=== PATIENT | female | born 1955 ===

== ENCOUNTER 2025-03-14 08:39 | Emergency (ER) | payer SELFPAY ==
[2025-03-14] VITALS (16 sets, daily range): BP systolic 101–138; BP diastolic 53–70; PULSE 35–55; RESP 18–23; TEMP 36.8; O2SAT 92–98
--- NOTE | 2025-03-14 08:41 | XR_ITS ---
WS: [id number] Exam: XR chest 1V portable [id number] Date/Time of Exam: 03/14/2025 9:12 AM Reason For Exam: Weakness No previous exam. Lungs are fully expanded and clear. Normal cardiomediastinal silhouette. Regional bony elements are intact. No pleural effusions. Numerous monitoring leads superimpose the chest. XR/XR chest 1V portable [id number] IMPRESSION: 1. No acute cardiopulmonary finding.
--- NOTE | 2025-03-14 08:41 | ECG_ITS ---
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
[2025-03-14] MEDS: atropine 0.1 mg/mL Syr 10 mL 1 MG IVP (08:49)
--- NOTE | 2025-03-14 09:00 | ED_ITS ---
HPI - Weakness 2 General: Chief complaint: Weakness Stated complaint: rapid response Time Seen by Provider: 03/14/25 08:40 History of Present Illness: 69-year-old female with a histo ry of kidney transplant on immunosuppressive therapy, hypertension and diabetes who presents to the emergency room with weakness and multiple syncopal episodes. She got into the wrong entrance trying to get to the emergency room and had passed out and a rapid response was called and she was brought to the emergency room. On presentation her heart rate is in the 20s. Appears to be a complete heart block. I immediately consulted cardiology who came to see the patient and rapidly took her to the [facility] for a temporary pacemaker placement. She just moved here or is visiting family and is only been here for a few days. She has been taking her medications. She has had malaise, weakness in the syncopal episodes with dizziness. No other acute complaints. Review of Systems 2 General: Reports: 10 or more systems reviewed and unremarkable except in HPI and below Physical Exam 2 Narrative: EXAM NARRATIVE: General: Alert, no acute distress. Skin: Warm, dry. Head: Normocephalic, atraumatic. Neck: Supple, trachea midline. Eye: Extraocular movements are intact. Ears, nose, mouth and throat: mucosa moist. Cardiovascular: Profoundly bradycardic, normal peripheral perfusion. Respiratory: Lungs are clear to auscultation, respirations are non-labored, breath sounds are equal, Symmetrical chest wall expansion. Gastrointestinal: Soft, Nontender, Non distended Musculoskeletal: Normal ROM, no deformity. Neurological: Alert and oriented, No focal neurological deficit observed. Psychiatric: Cooperative, appropriate mood & affect. Course 2 Vital Signs: Vital signs: Vital Signs Temperature 98.2 F 03/14/25 08:54 Pulse Rate 55 L 03/14/25 11:15 Respiratory Rate 19 H 03/14/25 11:15 Blood Pressure 101/54 03/14/25 11:15 Pulse Oximetry 94 03/14/25 11:15 Oxygen Delivery Me thod Room Air 03/14/25 08:54 MDM - Weakness Medical Decision Making Medical decision making: Differential diagnosis including but not limited to and based on the above HPI, review of systems and physical exam in this patient with syncope: Bradycardia. Vasovagal, orthostatics hypotension, cardiac dysrhythmia, myocardial infarction, infection and hypotension, Orders placed to evaluate differential diagnosis based on the above differential, HPI and physical exam EKG: Time 8:46 AM. Rate 26. Profound bradycardia. Junctional, This was reviewed and interpreted by myself the ER physician at 8:48 AM. This was sent to and reviewed by Dr. Shah with cardiology Consultation: I spoken with and Dr. Shah is also seen the patient and is taking her to the [facility] for temporary pacemaker placement and then plan for transfer ER to ER for permanent pacemaker placement. Chest x-ray: No acute process. No infiltrate. No pneumothorax. This was reviewed and interpreted by myself the emergency room physician. I also reviewed the radiology report. Lab Review: Laboratory results were reviewed and interpreted by myself the emergency room physician. Mild leukocytosis with a white count of 14,000. No anemia. BUN and creatinine are mildly elevated at 27 and 1.1. Glucose is elevated at 300. Initial troponin is normal at 12. Liver enzymes are normal. I reviewed the patient's medical record. Reexamination: Patient returns from [facility]. She is stable. Resting. Heart rate now in the 50s. Demand pacemaker. She is almost completely paced. No increased work of breathing. No altered mental status. No focal motor deficits. Consultation: I spoke with Dr. Laird in the ER at [facility] in [place] who accepts the patient ER to ER. Assessment and plan: Bradycardia ?Temporary pacemaker was placed. Patient stable. Being transferred for permanent pacemaker placement -I discussed the patient with the accepting physician on-call. - Discussed findings and plan with patient. Answered any questions. - All laboratory values were reviewed and interpreted personally by myself, the ER physician - All imaging was reviewed and interpreted personally by myself, the ER physician. - Evaluation and treatment of this problem were appropriate in the emergency setting Critical care -I spent a total of >35 minutes of critical care time managing the patient, independent of any other practitioner. -The time involved in the performance of separately reportable procedures was not counted towards critical care time. Lab Data 03/14/25 08:58 03/14/25 08:58 Radiology Impressions Chest X-Ray 03/14/25 08:41 IMPRESSION: 1. No acute cardiopulmonary finding. Laboratory Results WBC 14.74 10^3/uL (3.29-11.43) H 03/14/25 08:58 RBC 5.48 10^6/uL (3.85-5.65) 03/14/25 08:58 Hgb 14.20 g/dL (11.27-16.99) 03/14/25 08:58 Hct 46.6 % (36-47) 03/14/25 08:58 MCV 85.0 fl (85-98) 03/14/25 08:58 MCH 25.9 pg (27-33) L 03/14/25 08:58 MCHC 30.5 g/dL (30-55) 03/14/25 08:58 RDW 15.9 % (12.1-15.1) H 03/14/25 08:58 Plt Count 214 10^3/cmm (157-399) 03/14/25 08:58 MPV 10.4 fL (7.4-10.4) 03/14/25 08:58 Neut % (Auto) 42.9 % 03/14/25 08:58 Lymph % (Auto) 48.9 % 03/14/25 08:58 [place] % (Auto) 6.6 % 03/14/25 08:58 Eos % (Auto) 0.8 % 03/14/25 08:58 Baso % (Auto) 0.3 % 03/14/25 08:58 Neut # (Auto) 6.32 10^3/uL (1.8-7.7) 03/14/25 08:58 Lymph # (Auto) 7.2 10^3/uL (0.8-4.8) H 03/14/25 08:58 [place] # (Auto) 1.0 10^3/uL (0.2-0.9) H 03/14/25 08:58 Eos # (Auto) 0.1 10^3/uL (0.0-0.8) 03/14/25 08:58 Baso # (Auto) 0.0 10^3/uL (0.0-0.1) 03/14/25 08:58 Nucleated RBC % (auto) 0 % 03/14/25 08:58 Nucleated RBCs # 0.0 /100WBC 03/14/25 08:58 PT 13.40 SECONDS (12.1-14.9) 03/14/25 08:58 INR 0.96 (0.8-1.2) 03/14/25 08:58 APTT 23.7 SECONDS (23.9-36.7) L 03/14/25 08:58 Sodium 139 mmol/L (136-145) 03/14/25 08:58 Potassium 3.8 mmol/L (3.5-5.1) 03/14/25 08:58 Chloride 100 mmol/L (98-107) 03/14/25 08:58 Carbon Dioxide 24 mmol/L (22-29) 03/14/25 08:58 Anion Gap 18.8 (5-19) 03/14/25 08:58 BUN 27 mg/dL (8-23) H 03/14/25 08:58 Creatinine 1.1 mg/dL (0.5-0.9) H 03/14/25 08:58 GFR Calculation 49.2 mL/min (90-130) L 03/14/25 08:58 Glucose 301 mg/dL (65-115) H 03/14/25 08:58 Calculated Osmolality 304 mOsm/kg (285-295) H 03/14/25 08:58 Lactic Acid 4.2 mmol/L (0.5-2.2) H* 03/14/25 08:58 Calcium 9.8 mg/dL (8.5-10.5) 03/14/25 08:58 Total Bilirubin 0.5 mg/dL (0.15-1.2) 03/14/25 08:58 AST 49 U/L (0-32) H 03/14/25 08:58 ALT 56 U/L (0-33) H 03/14/25 08:58 Alkaline Phosphatase 83 U/L (35-105) 03/14/25 08:58 Troponin T Baseline 12 ng/L (0-10) H 03/14/25 08:58 C-Reactive Protein 3.0 mg/L (0.0-4.9) 03/14/25 08:58 NT-Pro-B Natriuret Pep 1992 pg/mL (0-125) H 03/14/25 08:58 Total Protein 7.0 g/dL (6.6-8.7) 03/14/25 08:58 Albumin 3.8 g/dL (3.5-5.2) 03/14/25 08:58 Globulin 3.2 g/dL (1.3-4.6) 03/14/25 08:58 Urine Color Dark yellow (Yellow) A 03/14/25 09:00 Urine Appearance Cloudy (CLEAR) A 03/14/25 09:00 Urine pH 5.5 (5-7) 03/14/25 09:00 Ur Specific [place] 1.031 (1.005-1.030) H 03/14/25 09:00 Urine Protein 4+ (Negative) A 03/14/25 09:00 Urine Glucose (UA) 1+ (Normal) H 03/14/25 09:00 Urine Ketones Trace (Negative) 03/14/25 09:00 Urine Blood 1+ (Negative) A 03/14/25 09:00 Urine Nitrate Negative (Negative) 03/14/25 09:00 Urine Bilirubin Negative (Negative) 03/14/25 09:00 Urine Urobilinogen 1.0 mg/dL (Negative) 03/14/25 09:00 Ur Leukocyte Esterase Negative (Negative) 03/14/25 09:00 Urine RBC 21-50 /hpf (0-2) H 03/14/25 09:00 Urine WBC 6-10 /hpf (0-5) 03/14/25 09:00 Ur Squamous Epith Cells 0-5 /hpf (0-5) 03/14/25 09:00 Amorphous Sediment Not Reportable 03/14/25 09:00 Urine Bacteria None seen /hpf (NONE) 03/14/25 09:00 Hyaline Casts 31.43 /lpf 03/14/25 09:00 Serum Ketones Negative (Negative) 03/14/25 08:58 All radiology interpretation(s) finalized by discharge Discharge Plan Discharge Patient Disposition: Xfer Short-Term Hosp Clinical Impression: Junctional bradycardia, Renal transplant recipient Condition: Stable Print Language: Yi Coding Level of Care Code ED Veterinary Physiologist for Hailee Marinelli
[2025-03-14 09:09] LABS: Basophils % 0.3 %; Eosinophils # 0.1 10^3/uL (0.0-0.8); Eosinophils % 0.8 %; Hematocrit 46.6 % (36-47); Lymphocytes # 7.2 10^3/uL (0.8-4.8); Lymphocytes % 48.9 %; Mean Corpuscular HGB Conc 30.5 g/dL (30-55); Mean Corpuscular Hemoglobin 25.9 pg (27-33); Mean Platelet Volume 10.4 fL (7.4-10.4); Monocytes % 6.6 %; Neutrophils # 6.32 10^3/uL (1.8-7.7); Neutrophils % 42.9 %; Nucleated Red Blood Cells % 0 %; Platelet Count 214 10^3/cmm (157-399); Red Blood Count 5.48 10^6/uL (3.85-5.65); Red Cell Distribution Width 15.9 % (12.1-15.1); White Blood Count 14.74 10^3/uL (3.29-11.43)
[2025-03-14 09:19] LABS: Bilirubin Urine Negative (Negative); Blood Urine 1+ (Negative); Glucose Urine UA 1+ (Normal); Ketones Urine Trace (Negative); Leukocyte Esterase Urine Negative (Negative); Nitrate Urine Negative (Negative); Protein Urine 4+ (Negative); Urine Appearance Cloudy (CLEAR); Urine Color Dark Yellow (Yellow); pH Urine 5.5 (5-7)
[2025-03-14] MEDS: DOPamine drip 400 MG/250 ML PREMIX 11.4 MG IV (09:23)
[2025-03-14 09:24] LABS: Bacteria Urine None Seen /hpf; Hyaline Casts Urine 31.43 /lpf; RBC Urine 21-50 /hpf (0-2); Squamous Epithelial Cell Urine 0-5 /hpf (0-5)
--- NOTE | 2025-03-14 09:24 | PM.CONSULT ---
Providers/Reason For Consult Consulting Physician/Specialty*: Jose Alfredo Shah Reason for Consult*: Bradycardia Requesting Physician: Dr Garza History of Present Illness History of Present Illness Sarah Sandy is a 69 year old female who only speaks Citizen Of [place] and was visiting family from [place] came with feeling very weak this morning. Had 1 episode of syncope on the way to the hospital and another 1 in the waiting area. EKG showed severe junctional bradycardia with a heart rate of [address]-T wave changes. She is still feeling very weak. Blood pressure is stable. She has a medication list from [facility] and it does not appear that she is on any rate limiting medications. Denies any prior cardiac history. Says that had workup in [place] about 6 months ago and did not show any problems. Denies chest pain at this time. He has some nausea. Her brother is with her and history obtained from him and we also had a sap security architect helping with obtaining history and consent from her. Review of Systems General: Reports: 10 or more systems reviewed and unremarkable except in HPI and below Vitals/I&O/Wt Last Vital Signs Temp 98.2 F 03/14/25 08:54 Pulse 35 L 03/14/25 09:08 Resp 21 H 03/14/25 09:08 BP 128/53 03/14/25 09:08 Pulse Ox 95 03/14/25 09:08 O2 Del Method Room Air 03/14/25 08:54 Weight last 48 hrs Weight 134 lb Physical Exam Narrative: GENERAL: Patient is alert, awake and oriented x3. [] NECK: No jugular vein distension. [] HEENT: No cyanosis. No icterus. No pallor. [] HEART: Bradycardia LUNGS: Clear to auscultate bilaterally. CENTRAL NERVOUS SYSTEM: Grossly nonfocal. [] EXTREMITIES: Lower extremities with no edema bilaterally. Data 03/14/25 08:58 03/14/25 08:58 Micro: Microbiology 03/14/25 08:58 Blood Culture - Preliminary Blood SPECIMEN COLLECTED A&P Assessment and plan (1) Junctional bradycardia: Plan Patient has severe symptomatic junctional bradycardia. Passed out twice. Does not appear to be on any rate controlling medications. We will proceed with temporary pacemaker placement. Will then transfer patient from the ER to a facility where permanent pacemaker can be placed as we do not have ability to place PPM here. Risks and benefits of procedure were discussed. Dopamine gtt started Thank you for involving us with care of this patient. Please call with questions. PDMP PDMP Reviewed: Not Reviewed Consult Attestations Medical Necessity Statement: Care expected to cross 2 midnights. Coding Level of Care Code Acute Code for Chg Fwd Diagnoses Junctional bradycardia R00.1
[2025-03-14 09:25] LABS: INR 0.96 (0.8-1.2)
[2025-03-14 09:26] LABS: Ketone (Acetest) Serum Negative (Negative); Partial Thromboplastin Time 23.7 SECONDS (23.9-36.7)
--- NOTE | 2025-03-14 09:29 | PC.NURSE ---
report given to [employer] team, Yoel. pt taken to [facility] @0936 with zoll monitor. pt family phone number . pt belongings in room 10 until pt arrives back to unit.
[2025-03-14 09:31] LABS: Troponin(5th) Baseline 12 ng/L (0-10)
[2025-03-14 09:47] LABS: Alanine Aminotransferase 56 U/L (0-33); Albumin Level 3.8 g/dL (3.5-5.2); Alkaline Phosphatase 83 U/L (35-105); Anion Gap 18.8 (5-19); Aspartate Amino Transferase 49 U/L (0-32); Blood Urea Nitrogen 27 mg/dL (8-23); Calcium 9.8 mg/dL (8.5-10.5); Carbon Dioxide 24 mmol/L (22-29); Chloride 100 mmol/L (98-107); Globulin 3.2 g/dL (1.3-4.6); Glomerular Filtration Rate 49.2 mL/min (90-130); Glucose 301 mg/dL (65-115); NT Pro B Type Natriuretic Pept 1992 pg/mL (0-125); Osmolality Calculated 304 mOsm/kg (285-295); Potassium 3.8 mmol/L (3.5-5.1); Sodium 139 mmol/L (136-145); Total Bilirubin 0.5 mg/dL (0.15-1.2)
[2025-03-14 09:47] LABS: Specific Gravity, Urine 1.031 (1.005-1.030)
[2025-03-14 09:48] LABS: Add Urine Culture? No; UA Slide Review UA Slide Review Perf
--- NOTE | 2025-03-14 09:48 | W.PM.OPSUD ---
Surgery/Procedure H&P Update DATE OF PROCEDURE: March 14, 2025 DATE H&P PERFORMED: 03/14/25 H&P UPDATE INFORMATION: I have reviewed H&P completed within last 30 days, I have examined patient prior to procedure and Changes to prior documentation as noted here CHANGES TO PREVIOUS DOCUMENTATION: On dopamine, patient's heart rate has increased into 40s and has 2:1 AV block now ( initial EKG showed junctional bradycardia) PREOP DIAGNOSIS: Severe junctional bradycardia/now high degree AV block PRIMARY INDICATION FOR PROCEDURE: Severe junctional bradycardia/now high degree AV block PLANNED PROCEDURE: Temporary transvenous pacemaker placement PATIENT REASSESSED PRIOR TO SEDATION, WITH NO CHANGE NOTED: Yes PHYSICAL EXAM: alert, oriented x 3, clear to auscultation bilaterally and regular rate & rhythm AIRWAY EVAL/ANESTHESIA PLAN: normal airway, ASA III, Local Anesthesia, Risks, benefits & alternatives of sedation and/or procedure discussed and Patient agrees to continue as planned ADDITIONAL INFORMATION: Moderate sedation
[2025-03-14 09:50] LABS: Lactic Sepsis W/Reflex 4.2 mmol/L (0.5-2.2)
[2025-03-14] MEDS: sodium chloride 0.9% 1,000 ML 75 ML IV (10:12)
--- NOTE | 2025-03-14 10:30 | P.PCN_ITS ---
Procedure Note: Date of procedure: 03/14/25 Pre-procedure diagnosis: Severe junctional bradycardia/ Intermittent high degree AV block Post-procedure diagnosis: other (S/p temporary transvenous pacemaker) Procedure: Access was obtained on right common femoral vein. Under fluoroscopic guidance, a temporary transvenous pacemaker was placed in position. Demand pacing at 50 bpm with mA of 2 and a sensitivity of 3 mV. Transfer patient to facility where can have permanent pacemaker placement Performing Provider: Jose Alfredo Shah Complications: None Condition: stable Disposition: other (Will need transfer to another facility for permanent pacemaker placement) Coding Level of Care Code Acute Code for [facility] Fwd
--- NOTE | 2025-03-14 10:50 | PC.NURSE ---
Addendum entered by Evelyn Tapia RN 03/14/25 11:18: 1.5mL of air instilled in syringe on arrival Original Note: pt arrived to ED @1030, fluids infusing, reyez catheter placed; pacemaker settings as followed: Ventricular Paced- (R Groin sheath; sutured) Rate: 50 BPM V Output: MA 2.0 V Sensitivity: 3.0 mV
[2025-03-14 10:52] LABS: Reflex Lactate Order REFLEX LACTIC ORDERD
--- NOTE | 2025-03-14 10:54 | PC.NURSE ---
ZOLL monitor has not been below 50 BPM, cardiac mon has false pulse reading charted in 40s.
--- NOTE | 2025-03-14 10:55 | PC.NURSE ---
no bleeding noted around R venous groin access; soft upon palpation, dressing clean and dry at this time.
--- NOTE | 2025-03-14 11:18 | PC.NURSE ---
report called to Octavio Briggs RN at [facility]. report number: . no further questions at end of report.
--- NOTE | 2025-03-14 11:45 | ECG_ITS ---
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
--- NOTE | 2025-03-14 11:47 | PC.NURSE ---
pts femoral access site soft upon palpation, no bleeding noted.
--- NOTE | 2025-03-14 12:09 | DCPLANNER ---
called @1124. was on seen, said they will call back in 30 minutes.
--- NOTE | 2025-03-14 12:31 | PC.NURSE ---
palpated R groin, soft to touch around sheath site
--- NOTE | 2025-03-14 12:55 | PC.PHAR ---
Pts' family member states pt takes alot of medications but she brought them with her from [place], where she lives. Pt is just visiting and does not carry a list. Family states medication bottles were not brought in with her.
--- NOTE | 2025-03-14 13:03 | PC.NURSE ---
report given to [facility], EMS states does not have capability to temporarily pace with their equipment--this nurse educated to bring back the temporary pacemaker. pt R groin soft upon palpation prior to departure, no bleeding noted. EMS crew aware of pacemaker settings.
== END 2025-03-14 13:15 | disposition short-term general hospital (02) ==
PROVIDERS: Internal Medicine; Emergency Provider Emergency Medicine
DX: R00.1 Bradycardia, unspecified (principal); Z94.0 Kidney transplant status
CPT/HCPCS: 33210; 51702; 71045; 80053; 81001; 82009; 83605; 83880; 84484; 85025; 85610; 85730; 86140; 87040; 93005; 96365; 96374; 96375; 99152; 99153; 99291; 99292; C1769; C1779; C1894; J0461; J1265; J1644; J2250; J2405; J3010; J7030; J9999

== ENCOUNTER 2025-03-17 17:52 | Inpatient (IN) | payer SELFPAY ==
--- OUTSIDE RECORDS SUMMARY | 2025-03-14 15:15 | XMS_ITS | Encounter Summary ---
Author Organization [facility] Address [address] [place] [address] Care Team Providers Care Family Life Educator Name Role Phone Unavailable Primary Care Provider Unavailabl e Reason for Visit * Reason Comments general weakness Patient arrives via EMS as transfer from [facility]. Patient was found to be in Junctional rhythm, then progressed to 3rd Degree Block and put on transvenous pacing. * Auth/Cert (Routine) Specialty Diagnoses / Procedures Referred By Franny ray Referred To Contact Emergency Medicine Diagnoses Bradycardia, temporary pacer placed [facility] Emergency Department [address] [place] [address] Phone: tel: fax: Referral ID Status Reason Start Date Expiration Date Visits Re quested Visits Authorized [id number] 1 1 Encounter Details Date Type Department Care Team (Latest Contact Info) Description 03/14/2025 3:15 PM CDT - 03/16/2025 2:15 PM CDT Hospital Encounter [facility] 3E Surgical Intensive Care [address] [place] [address] Janeth Moore DO [address] [place] [address] Lesly De La Rosa MD [address] [place] [address] Justyna Burnette MD [address] [place] [address] Heart block AV complete (CMS/HCC) Discharge Disposition: Home or Self Care Social History Tobacco Use Types Packs/Day Years Used Date Smoking Tobacco: Never Tobacco Cessation:Counseling Given: Not Answered Feeling Safe Answer Date Recorded Are you in a relationship wi th someone who hurts you emotionally and/or physically? No 03/14/2025 Food Insecurity Answer Date Recorded Patient needs follow up regardin 03/15/2025 Transportation Needs Answer Date Record ed Patient needs follow up regardin 03/15/2025 Utility Needs Answer Date Recorded Patient needs follow up regardin 03/15/2025 Comments Unknown Sex and Gender Information Value Date Recorded Sex Assigned at Not on file Legal Sex Female 10:49 AM CDT Gender Identity Not on file Sexual Orientation Not on file Travel History Travel Start Travel End [place] 02/11/2025 03/14/2025 documented as of this encounter Last Filed Vital Signs Vital Sign Reading Time Taken Comments Blood Pressure 134/72 03/16/2025 1:00 PM CDT Pulse 66 03/16/2025 1:45 PM CDT Temperature 36.7 C (98.1 F) 03/16/2025 11:00 AM CDT Respiratory Rate 18 03/16/2025 1:45 PM CDT Oxygen Saturation 93% 03/16/2025 1:45 PM CDT Inhaled Oxygen Concentration - - Weight 55.1 kg (121 lb 7.6 oz) 03/16/2025 3:00 A M CDT Height 149.9 cm (4' 11 ) 03/15/2025 10:05 AM CDT Body Mass Index 24.53 03/15/2025 10:05 AM CDT documented in this encounter Discharge Summaries * Justyna Burnette MD - 03/16/2025 1:08 PM CDT Patient: Iris Sandy / 69 y.o. / female : 1955 CSN: [id number] Admission date: 03/14/2025 Discharge date: 03/16/2025 Admitting Diagnoses: complete heart block Discharge Diagnoses: Principal Problem: Heart block AV complete (CMS/HCC) Active Problems: Junctional escape rhythm (CMS/HCC) Complete heart block (CMS/HCC) Syncope and collapse Type 2 diabetes mellitus with hyperglycemia Renal transplant recipient Temporary transvenous cardiac pacemaker present CHB (complete heart block) (CMS/HCC) Primary Discharge Diagnosis: complete heart block Consults: electrophysiology Procedures: temporary transvenous pacemaker placement, Dual chamber pacemaker placement Treatments: see below Significant Diagnostic Studies: TTE 03/15/2025 Left ventricle: The cavity size is normal. Wall thickness is normal. Assessment of systolic function was difficult due to image quality. Global systolic function is low normal to mildly reduced. For Epic reporting: the left ventricular ejection fraction is 50% by visual assessment. Images are inadequate for LV wall motion assessment. Interventricular septum shows dyssynergy, consistent with previous thoracotomy, conduction delay or RV pacing. Diastolic function is indeterminate. - Right ventricle: The cavity size is normal. Systolic function is normal. - Aortic valve: The valve is probably trileaflet. The leaflets are thickened. - Inferior vena cava: Pacer wire or catheter noted in IVCD. Hospital Course: #Complete heart block requiring emergent temporary transvenous pacemaker. It appears she may have been experiencing symptoms of heart block for the last few weeks, including dizziness and near syncopal episodes. Does not appear to have decompensated heart failure on exam TTE: demonstrating LVEF 50%, preserved Rv function Patient is s/p dual chamber pacemaker 03/15/2025 Post op chest xray reviewed, no pneumothorax appreciated Complete device interrogation performed- device is functioning well Patient is visiting from [place]- family expressed that she will stay in town so that she can followup with pacer clinic in [address] Mann, Electrophysiology in 3 months time #History of renal transplant. Long-term care in [facility]. No signs of acute infection at this time. 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 She also does not check her blood sugar levels at home. 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 Patient expressed that she will follow-up with her PCP in [place] and decide whether or not she wants to start insulin or additional hypoglycemic agents Electrophysiology has signed off. Follow up instructions as per Electrophysiology Patient is clinically and hemodynamically stable on my assessment. Ambulating in the intensive care unit without difficulty Will discharge home Disposition: home. MEDICATIONS Prior to admission: Medications Prior to Admission Medication Sig Dispense Refill Last Dose/Taking linaGLIPtin (TRADJENTA) 5 mg Tablet Take 5 mg by mouth daily. Taking enalapril (VASOTEC) 5 mg tablet Take 5 mg by mouth daily. Taking predniSONE (DELTASONE) 5 mg tablet Take 5 mg by mouth daily with breakfast. Taking mycophenolate mofetil (CELLCEPT) 500 mg tablet Take 500 mg by mouth 2 times daily. Taking sirolimus (RAPAMUNE) 1 mg tablet Take 1 mg by mouth daily. Taking calcitRIOL (ROCALTROL) 0.25 mcg capsule Take 0.25 mcg by mouth daily. Taking Discharge medications and new prescriptions: Medication List CONTINUE taking these medications calcitRIOL 0.25 mcg capsule Commonly known as: ROCALTROL Take 0.25 mcg by mouth daily. Refills: 0 enalapril 5 mg tablet Commonly known as: VASOTEC Take 5 mg by mouth daily. Refills: 0 linaGLIPtin 5 mg Tablet Commonly known as: TRADJENTA Take 5 mg by mouth daily. Refills: 0 mycophenolate mofetil 500 mg tablet Commonly known as: CELLCEPT Take 500 mg by mouth 2 times daily. Refills: 0 predniSONE 5 mg tablet Commonly known as: DELTASONE Take 5 mg by mouth daily with breakfast. Refills: 0 sirolimus 1 mg tablet Commonly known as: RAPAMUNE Take 1 mg by mouth daily. Refills: 0 documented in this encounter Discharge Instructions * Discharge Instructions* Hilario Wong RN - 03/15/2025 10:04 AM CDT DISCHARGE INSTRUCTIONS PACEMAKER DIET: Heart Healthy ACTIVITY: For the next 4 weeks, limit activity of affected arm in the following ways: Date: 04/12/25. Do not reach above your head, do not move the arm on the implant side beyond 90 degrees (at the shoulder level), do not put your arm or hand behind your back or perform jerky, vigorous movements withyour arm. Please use extra caution to avoid falling due to restricted arm mobility. Do not use a lawn and tree service spray supervisor or weed brad until cleared by Device Clinic staff. Contact sport: avoid for 4 weeks. Gradually increase other activity, such as walking as you are able. Do not touch the incision/device site other than gently cleansing. For the next 4 weeks, do not lift, push, or pull anything with the affected limb over 10 pounds. Date: 04/12/25. If you start to lift something and it pulls on the incision area, stop. You may do gentle arm exercises to keep shoulder from getting stiff. Starting with arm/hand in the ???Hi?? position, push hand straight out to the front, bring it back to the ???Hi?? position, and then push out to the side, bring the arm back to the ???Hi?? position. You may do this exercise 4-5times a day with 4-5 repetitions each time. SLING: Wear arm sling for 48 hours: Remove on Date: 03/17/25. Wear the arm sling at bedtime for the first 3 nights. If you are a restless sleeper or sleep with your arms overhead, wear the arm sling at bedtime for 4weeks. INCISION CARE: If you have heavenly, they will be removed at your wound care visit. Keep site clean and dry for 24 hours. Then clean gently in the shower daily using an antibacterial soap such as liquid dial. Do notpick or scratch the site. Gently cleanse the incision and pat dry with a towel. If you have a Aquacel dressing. Leave it on for 7 days. You may shower starting on the first day using regular soap or an antibacterial soap such as Liquid Dial. After 7 days, to remove the dressing,press down on the skin with one hand and carefully pull outward on the edge of the dressing with your other hand to release the adhesive. Repeat this process around the entire edge of the dressing. Do not apply any tape, sticky dressing, or alcohol to the incision site. This could loosen the glue. Allow the glue to fall off on its own. Do NOT use lotions, ointments, creams, powders, alcohol, or peroxide in the incision area. They slow down healing. Do NOT soak the site. Do NOT touch the incision area except for gentle washing. Please remember, keep hands off the incision. Hand Hygiene is the single most effective action you can take to prevent the spread of infectious disease. DRIVING: (if applicable) You may resume driving in 3 weeks or as directed by your physician. Date: 04/05/25 [address] driving, fold a washcloth into fourths and place on top of incision with seat belt on top of the washcloth to decrease irritation and rubbing. RETURNING TO WORK: (if applicable) You usually may return to work following your 2-3-week wound check appointment. If you need a return to work form signed by your physician, deliver the form to [facility], or fax the form to ([phone]), prior to your appointment. Be sure to include information regarding the type of work you do. Your completed form will be given to you at your appointment. GENERAL INFORMATION: Do not use a heating pad over the incision site. Microwave ovens made after 1979 will not harm your device. Do not lean over or touch running car engines. Please refrain from using chainsaws Avoid large generators, magnets, ARC welders. Please inform your dental and health care providers that you have a pacemaker, prior to care Your device is MRI (magnetic resonance imaging) conditional. Please notify your doctor prior to MRIimaging that you have a pacemaker. The MRI department will need to confirm if MRI is allowed, priorto imaging. Your device may set off an airport metal detector. Have your device identification available. If you are prescribed an antibiotic, please take the entire course. HOME MONITOR: If you have a home monitor, between office visits we will check your device every 3 months, frequency can change due to provider discretion. These are billed to insurance, so there may be a co-pay orco-insurance for which you are responsible. Help Line number for your transmitter: [employer]: . CALL CARDIAC DEVICE OFFICE - [phone] - IF: You have any signs of infection: any bleeding or drainage from your incision, redness, streaking, hot to touch, new or increased swelling, or running a fever above 101. You have a sudden swelling at the device site. You have a temperature above 101 F. If you have any questions regarding your device or restrictions, please call the Cardiac Device Office during clinic hours: Tuesday-Tuesday, 8 am. - 4:15 pm. CALL YOUR PHYSICIAN IF: (at [phone]) If you are having palpitations, dizziness, lightheadedness, or feeling faint, notify your physician. (IF THESE SYMPTOMS ARE SEVERE, CALL [phone]) You have increased or sudden onset of persistent, severe pain. You have persistent, severe shortness of breath or dizziness, increased fatigue, or weakness. You have any swelling in feet and ankles or body etc. You have gained more than 3 pounds in 1 day or 5 pounds in 1 week. (Weigh each morning after urination & before eating. Wear similar clothing). DON'T SMOKE AND AVOID SECOND-HAND SMOKE. If you need help to stop smoking, call the Health Information Team at [phone] or [phone]. Follow-Up: Wound check appointment 3 weeks after device was implanted. At this appointment: Device will be checked by the device coordinator. Incision will be examined to ensure proper healing. Wound care will be reviewed with the patient and family. Information regarding device will be given to the patient and their family and questions will be answered. Follow up will be reviewed - frequency and method. Your will be scheduled for a 3 month follow up appointment with your device doctor or nurse practitioner. DEVICE OFFICE WOUND CHECK APPOINTMENT: 3 weeks. Date: 04/08/25 Time: 2:00 PM. [facility] ([facility]) Device Office, second floor [address] [place] [address] (Detonator Maker Parking Available) PLEASE NOTE: You will not see the doctor this day. documented in this encounter Medications at Time of Discharge linaGLIPtin (TRADJENTA) 5 mg Tablet Take 5 mg by mouth daily. enalapril (VASOTEC) 5 mg tablet Take 5 mg by mouth daily. predniSONE (DELTASONE) 5 mg tablet Take 5 mg by mouth daily with breakfast. mycophenolate mofetil (CELLCEPT) 500 mg tablet Take 500 mg by mouth 2 times daily. sirolimus (RAPAMUNE) 1 mg tablet Take 1 mg by mouth daily. calcitRIOL (ROCALTROL) 0.25 mcg capsule Take 0.25 mcg by mouth daily. documented as of this encounter Progress Notes * Justyna Burnette MD - 03/16/2025 12:00 PM CDT CRITICAL CARE MEDICINE DAILY PROGRESS NOTE PCP: No primary care provider on file. Hx: Iris Sandy is a 69 y.o. female admitted 03/14/2025 with fatigue, dizziness, weakness, and falls.She reports that she began feeling tired, dizzy, and weak yesterday. Today she began following which prompted her to call EMS. Initially EMS noted a junctional rhythm which progressed to third-degreeblock. She became symptomatically bradycardic in the 20s with hypotension and was placed on intravenous pacing and transferred to [facility]. On arrival she was at a set rate of 50 with IV pacer through the right groin. Cardiology was consulted on her arrival and they interrogated noting that there were no P waves, patient in complete heart block. They increased pacing to 70 bpm. Per the patient's son, the patient had a cardiology checkup 6 months ago in [place] at which point they were told everything was okay. Cardiology plans for permanent pacemaker placement tomorrow. They request for stat echo and to keep pacer pads in place. Patient receives all of her medical care in [place]. Patient last took her medications on 03/13 evening. CXR was checked to confirm good pacer lead placement in the ED and it confirmed this. Her INR is WDL and other labs are pending. Past medical history of DMT2, hypertension, renal transplant. Pertinent PMHx: No past medical history on file. Current Care Plan Summary: #Complete heart block requiring emergent temporary transvenous pacemaker. Currently appropriately pacing. It appears she may have been experiencing symptoms of heart block for the last few weeks, including dizziness and near syncopal episodes. Continue pacing. Does not appear to have decompensated heart failure on exam TTE: demonstrating LVEF 50%, preserved Rv function Patient is s/p dual chamber pacemaker 03/15/2025 Post op chest xray reviewed, no pneumothorax appreciated Complete device interrogation performed- device is functioning well Patient is visiting from [place]- family expressed that she will stay in town so that she can followup with pacer clinic in [address] Mann, Electrophysiology in 3 months time #History of renal transplant. Long-term care in [facility]. No signs of acute infection at this time. 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 She also does not check her blood sugar levels at home. I counseled patient on the importance of adequate glycemic control. 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 Patient expressed that she will follow-up with her PCP in [place] and decide whether or not she wants to start insulin. Electrophysiology has signed off. Follow up instructions as per Electrophysiology Patient is clinically and hemodynamically stable on my assessment. Ambulating in the intensive care unit without difficulty Will discharge home ICU timeline: Major active problem list: Principal Problem: Heart block AV complete (CMS/HCC) Active Problems: Junctional escape rhythm (CMS/HCC) Complete heart block (CMS/HCC) Syncope and collapse Type 2 diabetes mellitus with hyperglycemia Renal transplant recipient Temporary transvenous cardiac pacemaker present CHB (complete heart block) (CMS/HCC) Subjective: 24 hour events - as above Objective: Current vital signs Blood pressure 127/63, pulse 71, temperature 97.2 ??F (36.2 ??C), temperature source Axillary, resp. rate 17, height 4' 11 (1.499 m), weight 55.1 kg (121 lb 7.6 oz), SpO2 94%. 24 hour BP and temperature range BP: (85-160)/(40-111) Temp (24hrs), Av.8 ??F (36.6 ??C), Min:97.2 ??F (36.2 ??C), Max:98.5 ??F (36.9 ??C) Input/Output 03/14 1900 - 03/16 0659 In: 1250 [P.O.:1250] Out: 2290 [Urine:2290] PHYSICAL EXAM: Gen:elderly female, no acute distress Neuro: neuro intact Cardiac: paced Pulm: non labored Abdomen: soft, non tender, non distended Skin: dry Extremities: warm Data Review: BMP: Recent Labs 03/14/25 1536 03/15/25 0410 03/16/25 0314 GLUCOSE 246* 176* 125* BUN 22 14 17 CREAT 0.68 0.59 0.66 NA 140 134* 140 K 4.7 3.9 3.8 CL 105 101 106 CO2 23 24 23 ANIONGAP 12 9 11 MG 2.0 -- 1.9 estimated creatinine clearance is 41.3 mL/min (by C-G formula based on SCr of 0.66 mg/dL). LFTs: Recent Labs 03/14/25 1536 03/15/25 0410 03/16/25 0314 ALKPHOS 72 72 73 ALT 49* 39* 29 AST 38* 26 18 BILITOTAL 0.4 0.6 0.5 ALBUMIN 3.4* 3.2* 3.1* CBC: Recent Labs 03/14/25 1711 03/15/25 0410 03/16/25 0314 WBC 8.0 8.2 7.3 HGB 12.9 13.5 13.9 HCT 41.2 41.6 43.8 PLT 168 168 150 MCV 83.2* 82.1* 82.3* Coagulation: Recent Labs 03/14/25 1536 PT 14.2 INR 1.0 ABG: No results found for: SPECIMENSOU , PHBLOODPOC , BOM1QMS , PO2POC , TMI0QRA , C5HVGOBU , GAQ9ZMX , BEPOC , LACTATE , PATIENTTEMP , PHTEMPCORR , KKA4GNXBJZ , HY8HJFIGJL Lactic acid: No results found for: LACTATE Radiology: relevant imaging reviewed Assessment and Plan Neuro/Psych: No acute concerns, she is neurologically intact. Cardiovascular/Fluids: She is hemodynamically stable without vasopressors. Complete heart block: With TVP in place, keep pacer pads on, n.p.o. after midnight for PPM tomorrow. TTE preserved biventricular function TSH Troponin nonelevated Pulmonary: No acute concerns, she is saturating well on room air. GI/NUT: Cardiac diet, SUP, not indicated Renal/LYTES/Acid-Base: S/p renal transplant: Roughly 7 years ago, resume transplant meds Infectious Disease: No concerns for infectious process at this time, monitor without ABX for now. Hem/Onc/Coag: DVTp, SCDs pending PPM placement. Endocrine: DMT2: SSI BG goal less than 180 Musculoskeletal/Skin: Routine skin care per nursing. Family communication: updated patient's son at the bedside Critical care time: N/A Em2 * Frederic Ruff MD - 03/16/2025 7:57 AM CDT Images from the original note were not included. EP/Cardiology Progress Note ASSESSMENT: Principal Problem: Heart block AV complete (CMS/HCC) Active Problems: Syncope and collapse Junctional escape rhythm (CMS/HCC) Complete heart block (CMS/HCC) Type 2 diabetes mellitus with hyperglycemia Renal transplant recipient Temporary transvenous cardiac pacemaker present CHB (complete heart block) (CMS/HCC) PLAN: CHB s/p DC-PPM on 03/15/2025 - device checked by rep today and I personally reviewed it, lead parameters are WNL - device site is as expected, sore and tender but no swelling or bleeding - from EP standpoint, device is WNL, EP team will sign off I have communicated with the primary team for my above recommendations. Frederic Ruff MD, [facility] Clinical Cardiac Electrophysiology [facility] 03/16/2025 BRIEF HISTORY: Iris Sandy is a 69 y.o. female who we are seeing for symptom for junctional rhythm & CHB. Intra-hospital course, she underwent uneventful PPM implant . SUBJECTIVE Patient denies chest pain, palpitations, syncope. Patient denies nausea, vomiting, or weakness of upper or lower extremities. Review of Systems: 10 point review of systems negative except as above. PHYSICAL EXAM: BP (!) 140/80 Pulse 63 Temp 97.2 ??F (36.2 ??C) (Axillary) Resp 19 Ht 4' 11 (1.499 m) Wt55.1 kg (121 lb 7.6 oz) SpO2 93% BMI 24.53 kg/m?? GENERAL: looks stated age SKIN: No rashes or lesions. HEENT: Normal cephalic, atraumatic, anicteric sclera NECK: supple, no JVD, no lymphadenopathy, CHEST: CTA B/L, no wheezing, rales or rhonchi CV: regular rate and regular rhythm, variable S1and S2, 2/6 ejection systolic murmur in the aortic area ABD: soft, nontender, no guarding, no rebound tenderness, EXTREMITIES: no edema NEUROLOGY: Alert and oriented x3, speech clear and fluent, muscle strength 4+ bilaterally LAB: I have reviewed the available labs. Lab Results Component Value Date HGB 13.9 03/16/2025 WBC 7.3 03/16/2025 Lab Results Component Value Date CREAT 0.66 03/16/2025 GFR >60 03/16/2025 K 3.8 03/16/2025 CA 8.6 (L) 03/16/2025 MG 1.9 03/16/2025 Serum creatinine: 0.66 mg/dL 03/16/25313 Estimated creatinine clearance: 41.3 mL/min Lab Results Component Value Date AST 18 03/16/2025 ALT 29 03/16/2025 Coagulation parameters: Lab Results Component Value Date INR 1.0 03/14/2025 PT 14.2 03/14/2025 Cardiac markers: TROPONIN T, BASELINE 5TH GEN Date Value Ref Range Status 03/14/2025 10 <=10 ng/L Final DELTA 6HR TROPONIN T Date Value Ref Range Status 03/14/2025 -2 See Interp. Final TROPONIN T, 6 HR 5TH GEN Date Value Ref Range Status 03/14/2025 8 <11 ng/L Final I reviewed overnight telemonitor & my interpretation is as below: A-paced, V-sensed * Justyna Burnette MD - 03/15/2025 3:30 PM CDT CRITICAL CARE MEDICINE DAILY PROGRESS NOTE PCP: No primary care provider on file. Hx: Iris Sandy is a 69 y.o. female admitted 03/14/2025 with fatigue, dizziness, weakness, and falls.She reports that she began feeling tired, dizzy, and weak yesterday. Today she began following which prompted her to call EMS. Initially EMS noted a junctional rhythm which progressed to third-degreeblock. She became symptomatically bradycardic in the 20s with hypotension and was placed on intravenous pacing and transferred to [facility]. On arrival she was at a set rate of 50 with IV pacer through the right groin. Cardiology was consulted on her arrival and they interrogated noting that there were no P waves, patient in complete heart block. They increased pacing to 70 bpm. Per the patient's son, the patient had a cardiology checkup 6 months ago in [place] at which point they were told everything was okay. Cardiology plans for permanent pacemaker placement tomorrow. They request for stat echo and to keep pacer pads in place. Patient receives all of her medical care in [place]. Patient last took her medications on 03/13 evening. CXR was checked to confirm good pacer lead placement in the ED and it confirmed this. Her INR is WDL and other labs are pending. Past medical history of DMT2, hypertension, renal transplant. Pertinent PMHx: No past medical history on file. Current Care Plan Summary: #Complete heart block requiring emergent temporary transvenous pacemaker. Currently appropriately pacing. It appears she may have been experiencing symptoms of heart block for the last few weeks, including dizziness and near syncopal episodes. Continue pacing. Does not appear to have decompensated heart failure on exam TTE: demonstrating LVEF 50%, preserved Rv function S/p PPM today Post op chest xray, device interrogation pending #History of renal transplant. Long-term care in [facility]. No signs of acute infection at this time. 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 ICU timeline: Major active problem list: Principal Problem: Heart block AV complete (CMS/HCC) Active Problems: Junctional escape rhythm (CMS/HCC) Complete heart block (CMS/HCC) Syncope and collapse Type 2 diabetes mellitus with hyperglycemia Renal transplant recipient Temporary transvenous cardiac pacemaker present CHB (complete heart block) (CMS/HCC) Subjective: 24 hour events - as above Objective: Current vital signs Blood pressure (!) 117/40, pulse 68, temperature 98.4 ??F (36.9 ??C), temperature source Axillary, resp. rate 22, height 4' 11 (1.499 m), weight 56 kg (123 lb 7.3 oz), SpO2 90%. 24 hour BP and temperature range BP: (85-160)/(40-111) Temp (24hrs), Av.9 ??F (36.6 ??C), Min:97.2 ??F (36.2 ??C), Max:98.5 ??F (36.9 ??C) Input/Output 03/14 0700 - 03/15 1859 In: 1150 [P.O.:1150] Out: 2830 [Urine:2830] PHYSICAL EXAM: Gen:elderly female, no acute distress Neuro: neuro intact Cardiac: paced Pulm: non labored Abdomen: soft, non tender, non distended Skin: dry Extremities: warm Data Review: BMP: Recent Labs 03/14/25 1536 03/15/25 0410 GLUCOSE 246* 176* BUN 22 14 CREAT 0.68 0.59 NA 140 134* K 4.7 3.9 CL 105 101 CO2 23 24 ANIONGAP 12 9 MG 2.0 -- estimated creatinine clearance is 41.7 mL/min (by C-G formula based on SCr of 0.59 mg/dL). LFTs: Recent Labs 03/14/25 1536 03/15/25 0410 ALKPHOS 72 72 ALT 49* 39* AST 38* 26 BILITOTAL 0.4 0.6 ALBUMIN 3.4* 3.2* CBC: Recent Labs 03/14/25 1711 03/15/25 0410 WBC 8.0 8.2 HGB 12.9 13.5 HCT 41.2 41.6 PLT 168 168 MCV 83.2* 82.1* Coagulation: Recent Labs 03/14/25 1536 PT 14.2 INR 1.0 ABG: No results found for: SPECIMENSOU , PHBLOODPOC , FJZ5VOZ , PO2POC , CEP3YLJ , E4VJVCMN , TLD8QIK , BEPOC , LACTATE , PATIENTTEMP , PHTEMPCORR , YHB7SVSKTF , [id number] Lactic acid: No results found for: LACTATE Radiology: relevant imaging reviewed Assessment and Plan Neuro/Psych: No acute concerns, she is neurologically intact. Cardiovascular/Fluids: She is hemodynamically stable without vasopressors. Complete heart block: With TVP in place, keep pacer pads on, n.p.o. after midnight for PPM tomorrow. TTE preserved biventricular function TSH Troponin nonelevated Pulmonary: No acute concerns, she is saturating well on room air. GI/NUT: Cardiac diet, SUP, not indicated Renal/LYTES/Acid-Base: S/p renal transplant: Roughly 7 years ago, resume transplant meds Infectious Disease: No concerns for infectious process at this time, monitor without ABX for now. Hem/Onc/Coag: DVTp, SCDs pending PPM placement. Endocrine: DMT2: SSI BG goal less than 180 Musculoskeletal/Skin: Routine skin care per nursing. Family communication: updated patient's son at the bedside Critical care time: N/A Em3 * Vira Mann MD - 03/15/2025 8:39 AM CDT S: Pt has no complain of CP, SOB, Dizziness, No fever or Chill. No significant palpitation. Tolerating medication. Review of System: Consitutional: no fever or chills Neurologic: No significant headache, recent stroke, or seizure. Eyes: No double visual ENT: No earache, nasal bleeding or signigicant sore throat Cardiac: as HPI Pulmonary: no cough off blood, or significant change in sputum production Gastrointestinal: No significant and prolonged diarrhea or constipation Genitourinary: No hematuria, dysuria. Skin: no significant rash Psychiatric: No clear depression Musculoskeletal: no significant change in myalgias or arthralgias O: Blood pressure 128/76, pulse 74, temperature 97.4 ??F (36.3 ??C), temperature source Axillary, resp. rate 24, height 4' 11.84 (1.52 m), weight 56 kg (123 lb 7.3 oz), SpO2 97%. Pt is alert and oriented x 3, no apparent distress, VSS, afibril Heart: RRR, no sig. Murmur Lung: CTA, with minimal crakles ABD: Non-tender, Soft and +BS Leg: Trace edema Lab: Lab Results Component Value Date WBC 8.2 03/15/2025 HGB 13.5 03/15/2025 HCT 41.6 03/15/2025 PLT 168 03/15/2025 MCV 82.1 (L) 03/15/2025 Lab Results Component Value Date NA 134 (L) 03/15/2025 K 3.9 03/15/2025 CL 101 03/15/2025 CO2 24 03/15/2025 CA 8.7 (L) 03/15/2025 BUN 14 03/15/2025 CREAT 0.59 03/15/2025 GLUCOSE 176 (H) 03/15/2025 ANIONGAP 9 03/15/2025 No results found for: CPK , CKMB , TROPONIN , TROPONIINT , TROPINTR Current Facility-Administered Medications Medication Dose Route Frequency Provider Last Rate Last Admin potassium CHLORIDE 20 mEq/100 mL IVPB 20 mEq 20 mEq IV every 2 hours Lesly De La Rosa MD Stopped at 03/15/25 0759 naloxone (NARCAN) 0.4 mg/mL injection 0.1-0.4 mg 0.1-0.4 mg IV see admin instructions Laura Stoner NP replacement reminder - Potassium 1 Each See Admin Instructions see admin instructions Laura Stoner NP replacement reminder-Magnesium 1 Each See Admin Instructions see admin instructions Laura Stoner NP replacement reminder - Phosphorus 1 Each See Admin Instructions see admin instructions Laura Stoner NP replacement reminder-Calcium 1 Each See Admin Instructions see admin instructions Laura Stoner NP insulin lispro (HumaLOG,ADMELOG) injection 0-12 Units 0-12 Units subCUT every 4 hours Laura Stoner NP 4 Units at 03/15/25 0750 predniSONE (DELTASONE) tablet 5 mg 5 mg Oral daily WITH breakfast Laura Stoner NP 5 mg at 03/15/25 0830 mycophenolate mofetil (CELLCEPT) tablet 500 mg 500 mg Oral BID Lesly De La Rosa MD sirolimus (RAPAMUNE) tablet 1 mg 1 mg Oral daily Lesly De La Rosa MD A/P Iris Sandy is a 69 y.o. female equatorial guinean speaking female with a history of renal transplant presents from [facility] with temporary transvenous pacing wires. She presented with a junctional rhythm with a heart rate in the 20s reportedly deteriorating to complete heart block. No P waves are noted during i nterrogation. Good threshold, paced @ 70. She reports 1 week lightheadedness, weakness, now worse. Had heart check up 6 mo ago in [place], everything ok per son. Not on any negative chronotropic agents. Labs from [facility] unremarkable. Severe [place], 20s with one week hx of syncope and weakness. No P wave. Junctional escape 20s as baseline. Temp pacer working. I discussed with her and her brother who speak Tajik fluently this AM about implanting PPM. Risks/benefits/options all discussed in detail all questions answered. Will proc eed. Echo reviewed. LVEF 50% without sig valvular diseases. Lab fine. The procedure described and the risks of complication also discussed with patient in detail. The risks including, but not limited to, infection, bleeding, pneumothorax requiring chest tube, cardiac perforation requiring open heart surgery, stroke, or . Overall, the potential risks clearly out weighted by the potential benefits. Patient understands the risks/benefits and other options clearly. All questions answered. Pacemaker Pre-Procedure Note Patient: Iris Sandy / 69 y.o. / female : 1955 CSN: [id number] Today's date: 03/15/2025 Planned Procedure: PPM Indications: Documented non-reversible symptomatic bradycardia due to third degree atrioventricularblock. Appropriate history and physical on chart? Yes Dated: yes Risks, benefits and options of conscious sedation discussed with patient. Previous anesthesia experiences reviewed. Informed consent obtained? yes Physical exam: Heart: No sig. Change from prior Lungs: no wheezes or rales and clear to auscultation, unlabored breathing. Airway: normal ASA Classification: 1. A normal healthy patient 2. A patient with mild systemic disease 3. A patient with severe systemic disease. Limits activity, but not incapacitating. 4. A patient with incapacitating systemic disease that is a constant threat to life. 5. A moribund patient, not expected to survive 24 hours with or without the procedure. Choose ASA Class: 2 Cleared for sedation: yes NPO status per policy: yes Plan/Recommendation: current treatment plan is effective, no change in therapy Vira Mann MD documented in this encounter H&P Notes * Laura Stoner NP - 03/14/2025 6:45 PM CDT CRITICAL CARE MEDICINE HISTORY & PHYSICAL PCP: No primary care provider on file. Subjective: CC: Fatigue, dizziness, weakness, falls HPI: Iris Sandy is a 69 y.o. female admitted 03/14/2025 with fatigue, dizziness, weakness, and falls. She reports that she began feeling tired, dizzy, and weak yesterday. Today she began followingwhich prompted her to call EMS. Initially EMS noted a junctional rhythm which progressed to third-degree block. She became symptomatically bradycardic in the 20s with hypotension and was placed on intravenous pacing and transferred to [facility]. On arrival she was at a set rate of 50 with IV pacer through the right groin. Cardiology was consulted on her arrival and they interrogated noting that there were no P waves, patient in complete heart block. They increased pacing to 70 bpm. Per the patient's son, the patient had a cardiology checkup 6 months ago in [place] at which point they were told everything was okay. Cardiology plans for permanent pacemaker placement tomorrow. They request for stat echo and to keep pacer pads in place. Patient receives all of her medical care in [place]. Patient last took her medications on 03/13 evening. CXR was checked to confirm good pacer lead placement in the ED and it confirmed this. Her INR is WDL and other labs are pending. Past medical history of DMT2, hypertension, renal transplant. Database: No past medical history on file. No past surgical history on file. Medication List CONTINUE taking these medications calcitRIOL 0.25 mcg capsule Commonly known as: ROCALTROL Take 0.25 mcg by mouth daily. Refills: 0 enalapril 5 mg tablet Commonly known as: VASOTEC Take 5 mg by mouth daily. Refills: 0 linaGLIPtin 5 mg Tablet Commonly known as: TRADJENTA Take 5 mg by mouth daily. Refills: 0 mycophenolate mofetil 500 mg tablet Commonly known as: CELLCEPT Take 500 mg by mouth 2 times daily. Refills: 0 predniSONE 5 mg tablet Commonly known as: DELTASONE Take 5 mg by mouth daily with breakfast. Refills: 0 sirolimus 1 mg tablet Commonly known as: RAPAMUNE Take 1 mg by mouth daily. Refills: 0 Allergies: Not on File Social History Tobacco Use Smoking status: Not on file Smokeless tobacco: Not on file Substance Use Topics Alcohol use: Not on file No family history on file. REVIEW OF SYSTEMS: Review of Systems Constitutional: Negative. HENT: Negative. Eyes: Negative. Respiratory: Negative. Cardiovascular: Negative. Gastrointestinal: Negative. Skin: Negative. Neurological: Positive for dizziness, loss of consciousness and weakness. Endo/Heme/Allergies: Negative. Psychiatric/Behavioral: Negative. Objective: Initial Vitals [03/14/25 1530] BP 116/65 Pulse (!) 58 Resp 22 Temp 98.5 ??F (36.9 ??C) Temp src Oral SpO2 94 % Patient Vitals for the past 8 hrs: BP Temp Temp src Pulse Resp SpO2 Height Weight 03/14/25 1545 120/60 -- -- (!) 59 18 92 % -- -- 03/14/25 1530 116/65 98.5 ??F (36.9 ??C) Oral (!) 58 22 94 % 4' 11.84 (1.52 m) 56 kg (123 lb 7.3 oz) Data Review: BMP:No results for input(s): GLUCOSE , BUN , CREAT , NA , K , CL , CO2 , ANIONGAP , CAIONIZED , MG , PO4 in the last 72 hours. CrCl cannot be calculated (No successful lab value found.). LFTs:No results for input(s): ALKPHOS , ALT , AST , BILITOTAL , ALBUMIN , AMYLASE , LIPASE in the last 72 hours. CBC: No results for input(s): WBC , HGB , HCT , PLT , MCV in the last 72 hours. Coagulation: Recent Labs 03/14/25 1536 PT 14.2 INR 1.0 ABGs:No results found for: SPECIMENSOU , PHBLOODPOC , BYH8IBU , PO2POC , OXY9JYA , M8FICUIH , AMV8GIX , BEPOC , LACTATE , PATIENTTEMP , PHTEMPCORR , VSH9PMTISO , [id number] Radiology: Relevant results and imaging have been reviewed. Assessment and Plan: Neuro/Psych: No acute concerns, she is neurologically intact. Cardiovascular/Fluids: She is hemodynamically stable without vasopressors. Complete heart block: With TVP in place, keep pacer pads on, n.p.o. after midnight for PPM tomorrow. TTE pending TSH Troponin nonelevated Pulmonary: No acute concerns, she is saturating well on room air. GI/NUT: Cardiac diet, n.p.o. after midnight SUP, not indicated Renal/LYTES/Acid-Base: S/p renal transplant: Roughly 7 years ago, resume transplant meds, consult nephrology in AM. Infectious Disease: No concerns for infectious process at this time, monitor without ABX for now. Hem/Onc/Coag: DVTp, SCDs pending PPM placement. Endocrine: DMT2: SSI BG goal less than 180 Musculoskeletal/Skin: Routine skin care per nursing. Additional comments: 69-year-old female admitted on 03/14 from outside facility for complete heart block s/p TVP placed at outside facility, EP consulted, echo pending, plan for PPM tomorrow 03/15, n.p.o. at midnight. Family Communication: Patient and son updated at bedside Cosigned by Lesly De La Rosa MD at 03/14/2025 7:33 PM CDT Associated attestation - Lesly De La Rosa MD - 03/14/2025 7:33 PM CDT I reviewed the medical record including the applicable Critical Care Medicine APC note from today. I independently examined the patient I discussed the history, physical findings, laboratory findings, assessment and plan with the applicable APC on rounds.? I have reviewed the physical exam findings in the applicable resident/Fellow/COMPUTER LAB PARA PROFESSIONAL/PA's note; my notable physical exam findings include: Body mass index is 24.24 kg/m??. Neuro: Alert, following commands, nonfocal CV: Paced rhythm Resp: No distress GI: Soft, nontender, nondistended Ext: No deformity, no edema I have reviewed the assessment and plan in the applicable APC note. Notable amendments to the assessment and plan include: [1] complete heart block requiring emergent temporary transvenous pacemaker. Currently appropriately pacing. It appears she may have been experiencing symptoms of heart block for the last few weeks, including dizziness and near syncopal episodes. Continue pacing. Does not appear to have decompensated heart failure on exam, however will check echo to evaluate further. Electrophysiology has been consulted and are evaluating for permanent pacemaker [2] history of renal transplant. Long-term care in [facility]. No signs of acute infection at this time. 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 ? Family Communication: Updated patient's son at bedside. All questions answered Critical care time of 31 minutes was spent with this patient excluding procedures or teaching. Active problem list: Principal Problem: Heart block AV complete (CMS/HCC) Active Problems: Junctional escape rhythm (CMS/HCC) Complete heart block (CMS/HCC) Syncope and collapse Type 2 diabetes mellitus with hyperglycemia Renal transplant recipient Temporary transvenous cardiac pacemaker present documented in this encounter Procedure Notes * Vira Mann MD - 03/15/2025 12:44 PM CDT Medtronic dual chamber PPM implanted and temp pacer removal done Throughout the procedure, patient's hemodynamics and oxygenation stable. No complication noticed. Minimal bleeding. Final parameters as WN and documented. TBL: 10 mL FINAL PROGRAMMING: MVP 60 to 120 beats per minute. FINAL SUMMARY: Dual chamber permanent pacemaker implantation for SSS. Home tomorrow Likely f/u with her MD in [place] If still in , f/u with pacer clinic in 3 weeks and with me in 3 months. documented in this encounter Consult Notes * Regulo Agarwal RN - 03/15/2025 10:05 AM CDT Chart screened by cardiac rehab per approved protocol for patient scheduled for cardiac device implant today. I have sent a request to the device office for a wound care appointment and downloaded appropriate discharge instructions in patient's chart to be edited post procedure. Please order IP Cardiac Rehab consult as appropriate for post procedure patient education (if one is not already present). * Vira Mann MD - 03/14/2025 4:11 PM CDTAssociated Order(s): IP CONSULT TO ELECTROPHYSIOLOGY CARDIOLOGY CONSULTATION [place], [place] Requesting Physician: Janeth Moore DO Primary Die Cutter: NONE Consulting Die Cutter: Dr. Mann Date of Admission: 03/14/2025 Today's Date: 03/14/2025 Reason for Consultation: complete heart block/ junctional escape HPI Iris Sandy is a 69 y.o. female equatorial guinean speaking female with a history of renal transplant presents from [facility] with temporary transvenous pacing wires. She presented with a junctional rhythm with a heart rate in the 20s reportedly deteriorating to complete heart block. No P waves are noted during i nterrogation. Good threshold, paced @ 70. She reports 1 week lightheadedness, weakness, now worse. Had heart check up 6 mo ago in [place], everything ok per son. Not on any negative chronotropic agents. Labs from [facility] unremarkable. [facility] labs pending. No past medical history on file. No past surgical history on file. (Not in a hospital admission) Not on File No family history on file. Social History Tobacco Use Smoking status: Not on file Smokeless tobacco: Not on file Substance Use Topics Alcohol use: Not on file Review of Systems 14 point ROS negative or not pertinent with the exception of aforementioned in the HPI. Objective: BP 120/60 Pulse (!) 59 Temp 98.5 ??F (36.9 ??C) (Oral) Resp 18 Ht 4' 11.84 (1.52 m) Wt 56 kg (123 lb 7.3 oz) SpO2 92% BMI 24.24 kg/m?? Last documented weight: Weight: 56 kg (123 lb 7.3oz) (03/14/25 1530) General: A/O x 3, well nourished, in no acute distress Head/ Neck: Normocephalic, Neck supple, no JVD, no carotid bruits. Lungs: Respirations even and unlabored. Breath sounds clear to auscultation Heart: Regular rate and rhythm. Normal S1 and S2. Abdomen: soft and nontender, bowel sounds present Extremities: THAKKAR. Pulses palpable. No edema Skin: Warm, dry, intact. No obvious lesions or ecchymosis. Neuro/Musc: Normal muscle strength and tone. No focal deficits. Laboratory: No results found for: NA , K , CL , CO2 , BUN , CREAT , CA @[LASTLIPIDS@ No results found for: WBC , RBC , HGB , HCT , PLT Lab Results Component Value Date PT 14.2 03/14/2025 No results found for: BNP No results found for: TSH , TSHULTRA , THYROIDSTIM No results found for: BASETROP , 2HRTROP , DELTA , 6HRTROP Assessment: Junctional escape with marked bradycardia/ sinus arrest requiring transvenous temporary wires. Planpermanent device implant tomorrow. Get stat echo, labs. Place A/P pads. Keep NPO after MN. Plan: Cardiology note Patient seen and examined today, interviewed, examined at bedside [id number]. I performed the following physical exam. PHYSICAL EXAM: BP (!) 142/70 Pulse 78 Temp 98.5 ??F (36.9 ??C) (Oral) Resp 19 Ht 4' 11.84 (1.52 m) Wt 56 kg (123 lb 7.3 oz) SpO2 98% BMI 24.24 kg/m?? GEN: alert, no acute distress SKIN: Warm and dry HEENT: Conjunctivae clear, oropharynx moist NECK: Supple, jvp normal, no carotid bruits, carotid upstroke brisk CHEST: Clear to ausculation, good breath sounds bilaterally CV: Regular rate and regular rhythm, normal S1 and S2, no murmur, no gallop rub or click ABD: Soft, non tender, normal bs EXT: No cyanosis, edema NEURO: No gross focal or lateralizing deficits LAB: I have reviewed the available labs. Assessment and plan: Asystole, not sure sinus arrest or afib with CHB Likely needing PPM tomorrow. Will like to have echo first to see if needing CRTP. Not sure what kind of atrial rhythm at this time. Temp pacer interrogated by me and stable. documented in this encounter ED Notes * Ryder Reed RN - 03/14/2025 4:22 PM CDT Patient placed on external pads per Die Cutter request. Patient settings adjusted per shaper hand. Pacer now set at 70, and 4 mA. * Ryder Reed RN - 03/14/2025 3:43 PM CDT Patient arrives via EMS as transfer from [facility]. Patient reports yesterday she began feeling tired and dizzy with generalized weakness. Patient states that today she began falling which brought her to seek medical help. Patient was found to be in a Junctional rhythm when she was seen initially, and then progressed to a 3rd Degree block. Patient became bradycardic in the 20s, hypotensive, and symptomatic. Patient was then placed on Intravenous pacing and transferred to this facility. Patient is currently set at a rate of 50, on 2 mA, with a sensitivity of 3. Patient has intravenous pacer inserted through right groin. Vital signs remain stable while pacing, patient is alert and oriented. * Janeth Moore DO - 03/14/2025 3:15 PM CDT HISTORY OF PRESENT ILLNESS This note was prepared by Crystal Kenny acting as a scribe for Janeth Moore DO Pt was evaluated in room H/H at 3:38 PM Pt is a 69 y.o. female who presents to the ED for evaluation of pacemaker placement and weakness. The patient has a temporary transvenous pacemaker in place. The patient now requires a permanent pacemaker and is presenting here for that procedure. The patient is a transfer from [facility] where she was complaining of weakness and lightheadedness. She mistakenly entered through the wrong entrance and passed out in the lobby at [facility] before having a temporary pacemaker placed. PAST MEDICAL HISTORY REVIEWED MEDICAL: Patient has no past medical history on file. SURGICAL: Patient has no past surgical history on file. ALLERGIES Patient has no known allergies. PHYSICAL EXAM INITIAL VS BP: 116/65 (03/14/25 1530), Heart Rate: (!) 52 bpm (03/14/25 1515), Resp: 21 (03/14/25 1515), Pulse: (!) 52 (03/14/25 1515), Temp: 98.5 ??F (36.9 ??C) (03/14/25 1530), Temp src: Oral (03/14/251529),SpO2: 94 % (03/14/25 1515), Height: 4' 11.84 (152 cm) (03/14/251529), Weight: 56 kg (123 lb 7.3 oz) (03/14/251529), BMI (Calculated): 24.24 (03/14/251529) No LMP recorded. Physical Exam Vitals and nursing note reviewed. Constitutional: General: She is not in acute distress. Appearance: She is not toxic-appearing. HENT: Head: Normocephalic and atraumatic. Mouth/Throat: Mouth: Mucous membranes are moist. Eyes: Extraocular Movements: Extraocular movements intact. Pupils: Pupils are equal, round, and reactive to light. Cardiovascular: Rate and Rhythm: Normal rate and regular rhythm. Pulses: Normal pulses. Pulmonary: Effort: Pulmonary effort is normal. No respiratory distress. Abdominal: General: There is no distension. Palpations: Abdomen is soft. Tenderness: There is no abdominal tenderness. Musculoskeletal: General: No swelling or deformity. Cervical back: Normal range of motion and neck supple. Skin: General: Skin is warm and dry. Neurological: General: No focal deficit present. Mental Status: She is alert and oriented to person, place, and time. Psychiatric: Mood and Affect: Mood normal. Behavior: Behavior normal. DIAGNOSTICS LAB: CBC WITH DIFFERENTIAL - Abnormal Result Value WBC 8.0 RBC 4.95 HEMOGLOBIN 12.9 HEMATOCRIT 41.2 MCV 83.2 (*) MCH 26.1 (*) MCHC 31.3 PLATELETS 168 MPV 10.6 RDW 16.0 (*) RDW-STDEV 48.3 NEUTROPHILS 62 LYMPHOCYTES 28 MONOCYTES 9 EOSINOPHILS 0 BASOPHILS 0 IMMATURE GRANULOCYTES 0 NEUTROPHIL ABSOLUTE 5.01 LYMPHOCYTE ABSOLUTE 2.27 MONOCYTE ABSOLUTE 0.70 (*) EOSINOPHIL ABSOLUTE 0.03 BASOPHILS ABSOLUTE 0.01 IMMATURE GRANULOCYTES ABSOLUTE 0.02 SMEAR REVIEWED: NA - Not Applicable COMPREHENSIVE METABOLIC PANEL - Abnormal SODIUM 140 POTASSIUM 4.7 CHLORIDE 105 CO2 23 CALCIUM 9.4 BUN 22 CREATININE 0.68 GLUCOSE 246 (*) TOTAL PROTEIN 6.2 (*) ALBUMIN 3.4 (*) BILIRUBIN TOTAL 0.4 ALKALINE PHOSPHATASE 72 AST 38 (*) ALT 49 (*) GFR >60 ANION GAP 12 BRAIN NATRIURETIC PEPTIDE, BNP OR PROBNP - Abnormal PROBNP, N TERMINAL 1,004 (*) PROTIME-INR - Normal PROTIME 14.2 INR 1.0 TROPONIN BASELINE, 5TH GEN - Normal TROPONIN T, BASELINE 5TH GEN 10 MAGNESIUM LEVEL - Normal MAGNESIUM 2.0 TROPONIN 2 HR, 5TH GEN RADIOLOGY: XR CHEST PA OR AP 1 VW Radiologist Impression IMPRESSION: Pacemaker lead extends into the right ventricle. EKG: PROCEDURES Procedures MEDICAL DECISION MAKING AND PLAN OF CARE Patient is a 69-year-old female presenting as a transfer from [facility] with symptomatic bradycardia, syncope, and concern for complete heart block with transvenous pacer placement She is afebrile, hemodynamically stable while being transvenously paced in the ED. She denies chest pain or shortness of breath and says that she is feeling tired currently, but otherwise has no complaints. EMS reported that her blood pressure was stable on the way to the ED. Patient will need permanent pacemaker placement. Will obtain labs, chest x-ray, EKG, and contact cardiology and the contour path tape mill operator for admission. Lab interpretation: No leukocytosis, no anemia, no thrombocytopenia. No electrolyte abnormalities requiring correction, no KHLOE. She is hyperglycemic at 246 with normal anion gap and normal bicarb. Troponin is 10. BNP is 1004. Patient does not appear fluid overloaded. Chest x-ray shows no focal consolidation, effusion, pneumothorax. Pacemaker leads present. Discussed with the contour path tape mill operator, Dr. De La Rosa, who will admit the patient. Discussed with cardiology whowill evaluate the patient for permanent pacemaker. ED Course as of 03/14/252017 [facility] Mar 14, 2025 0620 Paged (Mental Health Practitioner) and EP [LB] [phone] Discussed patient care with cardiology consult line, they said to admit the patient and proceed from there. [LB] ED Course User Index [LB] Crystal Kenny Scribe Medical Decision Making Amount and/or Complexity of Data Reviewed Labs: ordered. Radiology: ordered. ECG/medicine tests: ordered. Risk Decision regarding hospitalization. Clinical Scoring & Consults Current Discharge Medication List CONTINUE these medications which have NOT CHANGED Details linaGLIPtin (TRADJENTA) 5 mg Tablet Take 5 mg by mouth daily. enalapril (VASOTEC) 5 mg tablet Take 5 mg by mouth daily. predniSONE (DELTASONE) 5 mg tablet Take 5 mg by mouth daily with breakfast. mycophenolate mofetil (CELLCEPT) 500 mg tablet Take 500 mg by mouth 2 times daily. sirolimus (RAPAMUNE) 1 mg tablet Take 1 mg by mouth daily. calcitRIOL (ROCALTROL) 0.25 mcg capsule Take 0.25 mcg by mouth daily. LAST VS BP: 123/79 (03/14/251914), Heart Rate: 71 bpm (03/14/251914), Resp: 14 (03/14/251914), Pulse: 70(03/14/251914), Temp: 98.3 ??F (36.8 ??C) (03/14/251899), Temp src: Oral (03/14/251899), SpO2: 98 % (03/14/251914) CLINICAL IMPRESSION Final diagnoses: [I44.2] Complete heart block (CMS/HCC) (Primary) [R55] Syncope and collapse DISPOSITION, EDUCATION AND MEDICATION RECONCILIATION Medications reconciled. See after visit summary for patient education on discharged patients. ED Disposition ED Disposition Admit Condition Stable User Janeth Moore DO Date/Time Marilou Mar 14, 2025 3:55 PM Comment -- ATTESTATION STATEMENTS ATTESTATIONS The scribe's documentation has been prepared under my direction and personally reviewed by me in its entirety. I confirm that the note above accurately reflects all work, treatment, procedures, and medical decision making performed by me. Janeth Moore DO Portions of this documentation may have been created by an artificial photographic printer software. Effort has been done to assure accuracy of photographic printer. Any obvious errors or omissions should be clarified with the author of the document.\ documented in this encounter Miscellaneous Notes * Care Plan - Hilario Wong RN - 03/15/2025 3:13 PM CDT Cardiopulmonary Rehab completed S/P Pacemaker insertion Education with patient and used [employer] Director Mitch ID # [id number]. The patient was receptive to the education and verbalized understanding. No referral was sent to Cardiopulmonary Rehab Phase 2 due to: Patient does not have a qualifying diagnosis for the program. Please see Patient Education section of the chart for content details. Total Time Spent with the Patient: 20 minutes. Units Charged: 1. * Care Plan - Julia Escalante RN - 03/15/2025 8:32 AM CDT Problem: Discharge Planning Goal: Identify discharge needs upon admission and through discharge Description: Outcome: Progressing Care Management Initial Assessment Initial Discharge Planning Assessment completed. Discussed Care Management's role and Discharge planning. Plan Discharge To: Home or Self Care Plan Discharge To - Alternate: Home with family assist Does the patient have family and/or a caregiver that is willing, able and available to assist if needed? Yes - Name/Relation:antonio Dover Comments: Patient admitted from [facility] with weakness, falls, heart block AV complete. S/PPPM placement 03/15. Patients antonio Dover stated she is staying with us. She is here visiting from [place]. Prior to admission the patient is staying with antonio Dover. CM will continue to follow and assist with discharge. Patient Discharge Planning Goal: to get the PPM and go home. Patient will potentially discharge to a SNF/NH? No Care Management visited with: patient and Yfn via in person. Prior to admission, patient resides at: Mobile home. Patient resides in a 1 story home with 3 stairs to enter. Patient's bedroom and bathroom are located on the main floor. Prior to admission, living arrangements: family/friend. Prior to admission, patient's functional level:independent; uses N/A for mobility; needs assistancewith iADLs: N/A Community Ambulator: yes Prior to admission, the patient has the following DME? N/A Services in the home/community: none Receives hemodialysis? No Emergency contact(s): Extended Emergency Contact Information Primary Emergency Contact: Stanislaw Sandy Mobile Relation: Son Secondary Emergency Contact: Tiff Sandy Mobile Relation: Other Prescription coverage: no Preferred Pharmacy verified: Data Unavailable Insurance coverage verified: Payor: / Self pay Secondary Insurance:N/A Medicaid Status: NA Has VA Benefits: no Employment Status: retired PCP verified as: No primary care provider on file. No PCP Patient has not had a stay at an acute care hospital in the last 30 days. Recent Falls?: Last Known Fall: Within the last month Plan for transportation at discharge: family Care Management contact information provided. Care Management will continue to follow and assist asneeded. * Gen AI ED Handoff - GENERATIVE AI HANDOFF NOTE - 03/14/2025 5:35 PM CDT SITUATION: Patient ( ) is a 69-year-old female who has been in the ER for 2 hours. She came to the ER due to general weakness. The patient's most recent care team on record included: Ryder Reed. BACKGROUND: ASSESSMENT: Patient's most recent vitals recorded in flowsheets were as follows: BP: 130/70 T: 98.4 F RR: 20 SPO2: 99% HR: 70 WT: 123.5 LBS BMI: 24.24 Most recent Glucose Value: 246. Completed: 2025-03-14 16:50. Lines most recently placed include: angiocath at 2025-03-14 15:41. Last recorded oxygen source was nasal cannula. The patient, Iris Sandy, is a 69-year-old female with a history of renal transplant, presenting with complete heart block and junctional escape rhythm. She has experienced fatigue, dizziness, weakness, and falls, with symptomatic bradycardia and hypotension. She is currently on intravenous pacing with temporary transvenous pacing wires. RECOMMENDATION: Plan for permanent pacemaker placement tomorrow. Keep pacer pads in place and patient NPO after midnight. Stat echo and labs are requested. Cardiology consult has been made, and the patient is hemodynamically stable without vasopressors. Routine skin care per nursing is advised, and DVT prophylaxis with SCDs is pending PPM placement. Continue current medications including calcitriol, enalapril, linagliptin, mycophenolate mofetil, prednisone, and sirolimus. *This summary was created by britni DAVIS. The responses are meant to enhance, not replace normal workflow. Please contact the ED nurse for any additional information.* * ED Bed Hold Comment Note - Octavio Briggs, RN - 03/14/2025 3:15 PM CDT Bed: H Expected date: 03/14/25 Expected time: 2:57 PM Means of arrival: Ambulance Comments: Philip Bhakta Co documented in this encounter Plan of Treatment Upcoming Encounters Date Type Department Care Team (Late st Contact Info) Description 04/08/2025 2:00 PM CDT Nurse Only [facility] [address] [place] [address] [phone] Vira Mann MD [address] [place] [address] [phone] 07/30/2025 2:10 PM STRAIGHT EDGER Office Visit [facility] [address] [place] [address] [phone] Vira Mann MD [address] [place] [address] [phone] Jeevan Rodriguez CRNP [address], [address] [place] [address] [phone] Pending Results Name Type Priority Associated Diagnoses Date /Time HEMOGLOBIN A1C Lab Routine 03/16/2025 3:14 AM CDT Scheduled Orders Name Type Priority Associated Diagnoses Orde r Schedule HEMOGLOBIN A1C Lab Routine ONE TIME f or 1 Occurrences starting 03/16/2025 until 03/16/2025 documented as of this encounter Procedures Procedure Name Priority Date/Time Associated Diagnosis Comments POC GLUCOSE Routine 03/16/2025 11:08 AM CDT POC GLUCOSE Routine 03/16/2025 7:25 AM CDT CBC WITH DIFFERENTIAL Routine 03/16/2025 3:14 AM CDT MAGNESIUM LEVEL Routine 03/16/2025 3:14 AM CDT COMPREHENSIVE METABOLIC PANEL Routine 03/16/2025 3:14 AM CDT POC GLUCOSE Routine 03/16/2025 3:12 AM CDT POC GLUCOSE Routine 03/15/2025 11:11 PM CDT POC GLUCOSE Routine 03/15/2025 9:11 PM CDT XR CHEST PA AND LATERAL 2 VW Routine 03/15/2025 7:56 PM CDT POC GLUCOSE Routine 03/15/2025 4:47 PM CDT EKG 12-LEAD Routine 03/15/2025 1:27 PM CDT EKG 12-LEAD MAGNET Routine 03/15/2025 1: 26 PM CDT PACEMAKER INSERTION Routine 03/15/2025 1 2:36 PM CDT CHB (complete heart block) (CMS/HCC) POC GLUCOSE Routine 03/15/2025 11:01 AM CDT ECHO COMPLETE Stat 03/15/2025 8:15 AM CDT POC GLUCOSE Routine 03/15/2025 6:54 AM CDT XR CHEST PA OR AP 1 VW Routine 03/15/2025 5:12 AM CDT CBC WITH DIFFERENTIAL Routine 03/15/2025 4:10 AM CDT COMPREHENSIVE METABOLIC PANEL Routine 03/15/2025 4:10 AM CDT POC GLUCOSE Routine 03/15/2025 4:09 AM CDT POC GLUCOSE Routine 03/14/2025 11:25 PM CDT TROPONIN 6 HR, 5TH GEN Timed Study 03/14/2025 9:02 PM CDT POC GLUCOSE Routine 03/14/2025 8:02 PM CDT CBC WITH DIFFERENTIAL Stat 03/14/2025 5:11 PM CDT EKG 12-LEAD Stat 03/14/2025 5:00 PM CDT XR CHEST PA OR AP 1 VW Stat 03/14/2025 3:54 PM CDT TROPONIN BASELINE, 5TH GEN Stat 03/14/2025 3:36 PM CDT PROTIME-INR Stat 03/14/2025 3:36 PM CDT BRAIN NATRIURETIC PEPTIDE, BNP OR PROBNP Stat 03/14/2025 3:36 PM CDT MAGNESIUM LEVEL Stat 03/14/2025 3:36 PM CDT COMPREHENSIVE METABOLIC PANEL Stat 03/14/2025 3:36 PM CDT EKG 12-LEAD Stat 03/14/2025 3:24 PM CDT documented in this encounter Results * (ABNORMAL) POC GLUCOSE (03/16/2025 11:08 AM CDT) GLUCOSE POC 293(H) 74 - 99 mg/dL 03/16/2025 11:08 AM CDT [facility] SPECIMEN SOURCE, GLUCOSE POC Capillary 03/16/2025 11:08 AM CDT [facility] Blood, whole 03/16/2025 11:0 8 AM CDT 03/16/2025 11:50 AM CDT Justyna Burnette MD POINT OF CARE TESTING Final Resu lt [facility] CLIA # [id number] [address] [id number] * (ABNORMAL) POC GLUCOSE (03/16/2025 7:25 AM CDT) Pathologist [facility] GLUCOSE POC 153(H) 74 - 99 mg/dL 03/16/2025 7:25 AM CDT [facility] SPECIMEN SOURCE, GLUCOSE POC Capillary 03/16/2025 7:25 AM CDT [facility] Blood, whole 03/16/2025 7:25 AM CDT 03/16/2025 7:46 AM CDT Justyna Burnette MD POINT OF CARE TESTING Final Resu lt Performing Organization Address [facility]/ZIP Co de Phone Number [facility] CLIA # [id number] [address] [address] * MAGNESIUM LEVEL (03/16/2025 3:14 AM CDT) Pathologist [facility] MAGNESIUM 1.9 1.6 - 2.4 mg/dL 03/16/2025 4:20 AM CDT [facility] Blood Venipuncture / Unknown 03/16/2025 3:14 AM CDT 03/16/2025 3:46 AM CDT us Justyna Burnette MD CHEMISTRY ORDERABLES Final Resul t [facility] HIMANSHU # [id number] [address] [facility] [place] [address] * (ABNORMAL) COMPREHENSIVE METABOLIC PANEL (03/16/2025 3:14 AM CDT) [facility] SODIUM 140 136 - 145 mmol/L 03/16/2025 4:20 AM CDT [facility] POTASSIUM 3.8 3.5 - 5.1 mmol/L 03/16/2025 4:20 AM CDT [facility] CHLORIDE 106 98 - 107 mmol/L 03/16/2025 4:20 AM CDT [facility] CO2 23 22 - 29 mmol/L 03/16/2025 4:20 AM CDT [facility] CALCIUM 8.6(L) 8.8 - 10.2 mg/dL 03/16/2025 4:20 AM CDT [facility] BUN 17 8 - 23 mg/dL 03/16/2025 4:20 AM CDT [facility] CREATININE 0.66 0.51 - 0.95 mg/dL 03/16/2025 4:20 AM T [facility] GLUCOSE 125(H) 74 - 99 mg/dL 03/16/2025 4:20 AM T [facility] TOTAL PROTEIN 6.0(L) 6.4 - 8.3 g/dL 03/16/2025 4:20 AM T [facility] ALBUMIN 3.1(L) 3.5 - 5.2 g/dL 03/16/2025 4:20 AM CDT [facility] BILIRUBIN TOTAL 0.5 0.0 - 1.0 mg/dL 03/16/2025 4:20 AM CDT [facility] ALKALINE PHOSPHATASE 73 35 - 104 U/L 03/16/2025 4:20 AM CDT [facility] AST 18 10 - 35 U/L 03/16/2025 4:20 AM CDT [facility] ALT 29 <=35 U/L 03/16/2025 4:20 AM CDT [facility] GFR >60 >=60 mL/min/1.7 3 sq meter 03/16/2025 4:20 AM T [facility] Comment:eGFR calculated with 2020 CKD-EPI equation. Vegetarian diet, extremely high or low muscle mass, and may affect results. Cystatin C with Glomerular Filtration Rate is a suitable alternative for these patients. ANION GAP 11 9 - 20 mmol/L 03/16/2025 4:20 AM T [facility] Blood Venipuncture / Unknown 03/16/2025 3:14 AM CDT 03/16/2025 3:46 AM CDT us Laura Stoner NP CHEMISTRY ORDERABLES Final Resul t Performing Organization Address City/State/[facility] [[email or web address]] Co de Phone Number [facility] CLIA # [id number] [address] [place] [id number] * (ABNORMAL) CBC WITH DIFFERENTIAL (03/16/2025 3:14 AM CDT) WBC 7.3 4.8 - 10.8 K/uL 03/16/2025 3:49 AM CDT [facility] RBC 5.32 4.20 - 5.40 M/uL 03/16/2025 3:49 AM CDT [facility] HEMOGLOBIN 13.9 12.0 - 16.0 g/dL 03/16/2025 3:49 AM CDT [facility] HEMATOCRIT 43.8 36.0 - 46.0 % 03/16/2025 3:49 AM CDT [facility] MCV 82.3(L) 84.0 - 103.0 fL 03/16/2025 3:49 AM CDT [facility] MCH 26.1(L) 27.0 - 34.0 pg 03/16/2025 3:49 AM CDT [facility] [employer] MCHC 31.7 30.0 - 35.0 g/dL 03/16/2025 3:49 AM [facility] PLATELETS 150 140 - 440 K/uL 03/16/2025 3:49 AM [facility] [employer] [facility] MPV 10.6 8.9 - 12.8 fL 03/16/2025 3:49 AM [facility] [employer] [facility] RDW 16.2(H) 11.0 - 14.5 % 03/16/2025 3:49 AM [facility] [employer] [facility] RDW-STDEV 48.7 37.0 - 54.0 fL 03/16/2025 3:49 AM [facility] [employer] [facility] NEUTROPHILS 49 42 - 75 % 03/16/2025 3:49 AM [facility] [facility] LYMPHOCYTES 38 24 - 44 % 03/16/2025 3:49 AM [facility] [employer] MONOCYTES 11(H) 2 - 10 % 03/16/2025 3:49 AM [facility] EOSINOPHILS 1 0 - 7 % 03/16/2025 3:49 AM [facility] BASOPHILS 0 0 - 1 % 03/16/2025 3:49 AM [facility] IMMATURE GRANULOCYTES 0 0 - 2 % 03/16/2025 3:49 AM [facility] [employer] [facility] NEUTROPHIL ABSOLUTE 3.57 2.00 - 8.00 K/uL 03/16/2025 3:49 AM [facility] LYMPHOCYTE ABSOLUTE 2.77 1.20 - 4.00 K/uL 03/16/2025 3:49 AM [facility] [employer] [facility] MONOCYTE ABSOLUTE 0.79(H) 0.10 - 0.60 K/uL 03/16/2025 3:49 AM [facility] [employer] EOSINOPHIL ABSOLUTE 0.08 0.00 - 0.70 K/uL 03/16/2025 3:49 AM [facility] BASOPHILS ABSOLUTE 0.02 0.00 - 0.20 K/uL 03/16/2025 3:49 AM [facility] IMMATURE GRANULOCYTES ABSOLUTE 0.03 0.00 - 0.10 K/uL 03/16/2025 3:49 AM CDT [facility] SMEAR REVIEWED: NA - Not Applicable 03/16/2025 3:49 AM CDT [facility] Blood Venipuncture / Unknown 03/16/2025 3:14 AM CDT 03/16/2025 3:44 AM CDT Laura Stoner NP HEMATOLOGY ORDERABLES Final Resu lt Performing Organization Address [facility]/ZIP Co de Phone Number [facility] CLIA # [id number] [address] [id number] * (ABNORMAL) POC GLUCOSE (03/16/2025 3:12 AM CDT) GLUCOSE POC 147(H) 74 - 99 mg/dL 03/16/2025 3:12 AM CDT [facility] SPECIMEN SOURCE, GLUCOSE POC Venous 03/16/2025 3:12 AM CDT [facility] Blood, whole 03/16/2025 3:12 AM CDT 03/16/2025 3:46 AM CDT Justyna Burnette MD POINT OF CARE TESTING Final Resu lt Performing Organization Address [facility]/ZIP Co de Phone Number [facility] CLIA # [id number] [address] [address] * (ABNORMAL) POC GLUCOSE (03/15/2025 11:11 PM CDT) GLUCOSE POC 247(H) 74 - 99 mg/dL 03/15/2025 11:11 PM CDT [facility] SPECIMEN SOURCE, GLUCOSE POC Capillary 03/15/2025 11:11 PM CDT [facility] Blood, whole 03/15/2025 11:1 1 PM CDT 03/16/2025 12:11 AM CDT Justyna Burnette MD POINT OF CARE TESTING Final Resu lt Performing Organization Address [facility] [[email or web address]] Co de Phone Number [facility] [employer] [facility] CLIA # [id number] [address] [address] [place] [address] * (ABNORMAL) POC GLUCOSE (03/15/2025 9:11 PM CDT) [facility] GLUCOSE POC 227(H) 74 - 99 mg/dL 03/15/2025 9:11 PM CDT [facility] SPECIMEN SOURCE, GLUCOSE POC Capillary 03/15/2025 9:11 PM CDT [facility] Blood, whole 03/15/2025 9:11 PM CDT 03/15/2025 10:49 PM CDT Justyna Burnette MD POINT OF CARE TESTING Final Resu lt Performing Organization Address [facility] [[email or web address]] Co de Phone Number [facility] CLIA # [id number] [address] [address] * XR CHEST PA AND LATERAL 2 VW (03/15/2025 7:56 PM CDT) Anatomical Region Laterality Modality Chest Computed Radiogr aphy 03/15/2025 7:56 PM CDT Impressions 03/16/2025 1:38 AM CDT IMPRESSION: No acute cardiopulmonary abnormality identified. MACRO: None Narrative 03/16/2025 1:38 AM CDT EXAMINATION: XR CHEST PA AND LATERAL 2 VW CLINICAL HISTORY: ASSOCIATED DIAGNOSIS: Post-Operative ORDERING PROVIDER: VIRA MANN TECHNOLOGISTS NOTE: COMPARISON: Chest radiograph 03/15/2025 FINDINGS: Lines, tubes, and devices: Interval placement of left chest wall pacemaker with dual leads terminating over the expected locations of the right atrial appendage and right ventricle Lungs and pleura: No focal pulmonary consolidation, effusion or pneumothorax. Cardiomediastinal silhouette: Normal cardiomediastinal silhouette. Musculoskeletal: Unremarkable. Procedure Note Jean Carlos Crawley MD - 03/16/2025 EXAMINATION: XR CHEST PA AND LATERAL 2 VW CLINICAL HISTORY: ASSOCIATED DIAGNOSIS: Post-Operative ORDERING PROVIDER: VIRA MANN TECHNOLOGISTS NOTE: COMPARISON: Chest radiograph 03/15/2025 FINDINGS: Lines, tubes, and devices: Interval placement of left chest wall pacemaker with dual leads terminating over the expected locations of the right atrial appendage and right ventricle Lungs and pleura: No focal pulmonary consolidation, effusion or pneumothorax. Cardiomediastinal silhouette: Normal cardiomediastinal silhouette. Musculoskeletal: Unremarkable. IMPRESSION: No acute cardiopulmonary abnormality identified. MACRO: None us Vira Mann MD DIAGNOSTIC IMAGING ORDERABLES Final Result * (ABNORMAL) POC GLUCOSE (03/15/2025 4:47 PM CDT) GLUCOSE POC 345(H) 74 - 99 mg/dL 03/15/2025 4:47 PM CDT [facility] SPECIMEN SOURCE, GLUCOSE POC Capillary 03/15/2025 4:47 PM CDT [facility] COMMENT, GLU POC Notified Caregiver 03/15/2025 4:47 PM CDT [facility] Blood, whole 03/15/2025 4:47 PM CDT 03/15/2025 4:59 PM CDT us Justyna Burnette MD POINT OF CARE TESTING Final Resu lt [facility] CLIA # [id number] [facility] [address] [place], [place] [address] * EKG 12-LEAD (03/15/2025 1:27 PM CDT) 03/15/2025 1:27 PM CDT Narrative INTERFACE SYSTEM - 03/17/2025 12:53 PM CDT [address] [address] Test Date: 2025-03-15 Pat Name: IRIS SANDY Department: 12 Room: [address] [place] [address] 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: [id number] : 1955 Requested By: Order Number: [id number] Reading MD: Vira Mann Measurements Intervals [place] Rate: 60 P: -5 HI: 224 QRS: -7 QRSD: 114 T: 77 QT: 444 QTc: 444 Interpretive Statements Atrial-paced rhythm with prolonged AV conduction Incomplete left bundle branch block Minimal voltage criteria for LVH, may be normal variant ( Reddy product ) Nonspecific T wave abnormality Abnormal ECG Electronically Signed On 03-17-2025 12:53:22 CDT by Vira Mann Procedure Note Provider, Historical - 03/17/[address] [address] Test Date: 2025-03-15 Pat Name: IRIS SANDY Department: 12 Room: [address] [place] [address] 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: [id number] : 1955 Requested By: Order Number: [id number] Reading MD: Vira Mann Measurements Intervals [place] Rate: 60 P: -5 HI: 224 QRS: -7 QRSD: 114 T: 77 QT: 444 QTc: 444 Interpretive Statements Atrial-paced rhythm with prolonged AV conduction Incomplete left bundle branch block Minimal voltage criteria for LVH, may be normal variant ( Hull product) Nonspecific T wave abnormality Abnormal ECG Electronically Signed On 03-17-2025 12:53:22 CDT by Vira Mann us Justyna Burnette MD ECG ORDERABLES Final Result INTERFACE SYSTEM Refer to clinic/hospital department * EKG 12-LEAD MAGNET (03/15/2025 1:26 PM CDT) 03/15/2025 1:26 PM CDT Narrative INTERFACE SYSTEM - 03/17/2025 12:53 PM CDT [address] [address] Test Date: 2025-03-15 Pat Name: IRIS SANDY Department: 12 Room: CARDIAC CA Cardiac Ca 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: [id number] : 1955 Requested By: Order Number: [id number] Reading : Vira Mann Measurements Intervals [place] Rate: 84 P: 56 HI: 160 QRS: -15 QRSD: 110 T: 93 QT: 410 QTc: 484 Interpretive Statements Atrial-paced rhythm with frequent AV dual-paced complexes Incomplete left bundle branch block Minimal voltage criteria for LVH, may be normal variant ( Hull product ) ST & T wave abnormality, consider lateral ischemia QTcB >= 480 msec Abnormal ECG Electronically Signed On 03-17-2025 12:53:12 CDT by Vira Mann Procedure Note Provider, Historical - 03/17/[address] [address] Test Date: 2025-03-15 Pat Name: IRIS SANDY Department: 12 Room: CARDIAC CA Cardiac Ca 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: [id number] : 1955 Requested By: Order Number: [id number] Reading : Vira Mann Measurements Intervals [place] Rate: 84 P: 56 HI: 160 QRS: -15 QRSD: 110 T: 93 QT: 410 QTc: 484 Interpretive Statements Atrial-paced rhythm with frequent AV dual-paced complexes Incomplete left bundle branch block Minimal voltage criteria for LVH, may be normal variant ( Reddy product) ST & T wave abnormality, consider lateral ischemia QTcB >= 480 msec Abnormal ECG Electronically Signed On 03-17-2025 12:53:12 CDT by Vira Mann us Vira Mann MD ECG ORDERABLES Final Result INTERFACE SYSTEM Refer to clinic/hospital department * PACEMAKER INSERTION (03/15/2025 12:36 PM CDT) Narrative [facility] - 03/15/2025 12:46 PM CDT DUAL CHAMBER PERMANENT PACEMAKER IMPLANTATION: PREPROCEDURE DIAGNOSES: 1. SSS POSTPROCEDURE DIAGNOSES: 1. Status post dual chamber permanent pacemaker implantation. MATERIALS USED: Medtronic system 1. A new RV lead 2. A new RA lead is Medtronic 3. A new pacemaker generator PROCEDURE PERFORMED: 1. Left upper extremity venogram to exclude venous occlusion. 2. RV lead placement under the fluoro guidance. 3. RA lead placement under the fluoro guidance. 4. Generator placement with interrogation and programming. DESCRIPTION OF PROCEDURE: After informed consent was obtained, the patient was taken to the Cardiac Catheterization Lab in a fasting, nonsedated state. The patient was transferred from the holding area to the table and the patient s hemodynamics were stable during the procedure. The patient did not require any intervention during the procedure other than our routine care. The patient's left anterior chest and neck were prepped and draped in sterile fashion and local anesthesia was obtained with 1% lidocaine. Using a #10 blade, a skin incision was made 3 cm below the left clavicle and about 6 cm in the diagonal plane, using sharp and blunt dissection down to the prepectoralis muscle fascia. A pulse generator pocket was then created. 10 ml of the contrast agent was injected into the left arm IV site and under the venogram as well as fluoroscopic guidance, the thin-walled needle was punctured into the junction of axillary vein and subclavian, the J wire was then introduced into the right atrium. First right ventricular lead was inserted through the safe sheath into the right ventricular apex and active fixation was obtained into ventricular septum at the apex area. The acute parameters of the lead were obtained and satisfactory parameters were confirmed. Stylet was withdrawn and the lead was left with enough slack and 10 volts x 1 millisecond stimulation was obtained to ensure the patient was without diaphragmatic or intercostal muscle stimulation. The lead was secured to the underlying pectoralis muscle using #1 Ethibond suture with suture sleeve in two different locations. After securing the ventricular lead, using a similar fashion we did the atrial lead with separate needle stick to the junction of subclavian and axillary vein under the venogram as well as fluoroscopic guidance. The right atrial lead was advanced to the right atrial appendage or nearby atrium and again active fixation was obtained. After satisfactory acute parameters of the right atrial lead were confirmed, the right atrial lead was secured to the underlying pectoralis muscle area using #1 Ethibond suture with suture sleeve in two independent knots. After the second check of both right ventricular and right atrial lead acute parameters, we found those acute parameters were in a satisfactory range. The lead was connected to the pulse generator by tightening up the set screws and tug test was noted to be negative. The pulse generator was put into the pocket after irrigation of the pocket with antibiotic solution. The pulse generator leads were then curled and placed in the generator pocket with the pulse generator being secured to underlying pectoralis muscle under the pocket. The pulse generator pocket was then closed with 2-0 V lock in a continuous running stitch fashion. Second layer of 2-0 V lock was applied to the subcutaneous tissue in a continuous running stitch fashion. The skin edge was approximated using heavenly. Checking of the sponge and needle count times two was noted to be correct. Final parameter settings of the pulse generator at the time of departure from the EP lab were obtained and the patient was transferred back to a monitored bed without any specific complaints. The patient was hemodynamically stable. I discussed the procedure with the patient and the patient's significant others. All questions were answered. Throughout the procedure, patient's hemodynamics and oxygenation stable. No complication noticed. Minimal bleeding. Final parameters as WN and documented. TBL: 10 mL FINAL PROGRAMMING: MVP 60 to 120 beats per minute. FINAL SUMMARY: Dual chamber permanent pacemaker implantation for SSS. Lead Implant 1 Lead is located in the right ventricle. Right Ventricle location: RV apex. Vascular access venogram performed. The left subclavian vein was cannulated using the Seldinger technique. The LEAD CAPSUREFIX NOVUS MRI 52CM ENDOCARDIAL PACING 5076- [id number] RV lead was successfully implanted in the RV apex. There was no extracardiac stimulation on the lead. The sheaths were removed and then the leads were secured to the fascia using Ethibond. Lead Implant 2 Lead is located in the right atrium. Right atrium location: right atrial appendage. Vascular access venogram performed. The left subclavian vein was cannulated using the Seldinger technique. The LEAD PACING CAPSURE FIX NOVUS 45CM [id number] - CSC RA lead was successfully implanted in the right atrial appendage. There was no extracardiac stimulation on the lead. The sheaths were removed and then the leads were secured to the fascia using Ethibond. Generator Implant/Explant PPM implant: Area(s) prepped and draped: left anterior chest wall. Timeout protocol completed. The skin and subcutaneous tissue were locally anesthetized using lidocaine 1%. A pre-incision venogram was performed. An incision was made along the left infraclavicular. A left pectoral subcutaneous pocket was made using electrocautery (microbipolar). All areas of bleeding were sought for and cauterized and a dry field was obtained. The device and leads were then placed into the pocket. The lead(s) and device were inspected under fluoroscopy to ensure proper positioning. The pocket was observed to be free of active bleeding. The pocket was copiously irrigated with antibiotic solution. The pocket was copiously irrigated with 0.9% normal saline solution. Vira Mann MD CUP EP ORDERABLES Final Resul t Performing Organization Address City/[facility]/ZIP Co de Phone Number [facility] CLIA [id number] [address] [facility] [address] [place] [phone], * (ABNORMAL) POC GLUCOSE (03/15/2025 11:01 AM CDT) GLUCOSE POC 131(H) 74 - 99 mg/dL 03/15/2025 11:01 AM CDT [facility] SPECIMEN SOURCE, GLUCOSE POC Capillary 03/15/2025 11:01 AM CDT [facility] Blood, whole 03/15/2025 11:0 1 AM CDT 03/15/2025 11:09 AM CDT Justyna Burnette MD POINT OF CARE TESTING Final Resu lt Performing Organization Address [facility]/ZIP Co de Phone Number [facility] CLIA # [id number] [address] [facility] [place] [address] * ECHO COMPLETE - CONTRAST AND STRAIN IF INDICATED (03/15/2025 8:15 AM CDT) EJECTION FRACTION 50 INTERFACE SYSTEM 03/15/2025 7:13 AM CDT [facility] INTERFACE SYSTEM - 03/15/2025 8:20 AM CDT [facility] Cardiovascular Services Echocardiography Laboratory [address] [place], [place] [address] [address] Transthoracic Echocardiography Patient: Iris Sandy Study ID: ECHO COMPLETE - Gender: F : 1955 Age: 69 Room: [facility] Study Date: 03/15/2025 Pt Status: Inpatient Study Time: 07:13:44 AM CSN #: [id number] Ordering:Alyson Michelle Dye Padder Operator: Chey Saravia Indications and History: Av heart block. Summary and Conclusion: - Left ventricle: The cavity size is normal. Wall thickness is normal. Assessment of systolic function was difficult due to image quality. Global systolic function is low normal to mildly reduced. For Epic reporting: the left ventricular ejection fraction is 50% by visual assessment. Images are inadequate for LV wall motion assessment. Interventricular septum shows dyssynergy, consistent with previous thoracotomy, conduction delay or RV pacing. Diastolic function is indeterminate. - Right ventricle: The cavity size is normal. Systolic function is normal. - Aortic valve: The valve is probably trileaflet. The leaflets are thickened. - Inferior vena cava: Pacer wire or catheter noted in IVCD. Procedure information: No prior study is available for comparison. Study status: Routine. Procedure: A transthoracic echocardiogram was performed. Image quality was adequate. Scanning was performed from the parasternal, apical, subcostal, and suprasternal notch acoustic windows. Study components: M-mode, 2D, complete spectral Doppler, and color Doppler. Height: 152cm. Height: 59.8in. Weight: 56kg. Weight: 123.5lb. BMI: 24.2kg/m^2. BSA: 1.55m^2. Blood pressure: 100/61 Study date: 03/15/2025. Study time: 07:13 AM. Location: ICU/CCU Cardiac Anatomy: LEFT VENTRICLE: The cavity size is normal. Wall thickness is normal. Assessment of systolic function was difficult due to image quality. Global systolic function is low normal to mildly reduced. For Epic reporting: the left ventricular ejection fraction is 50% by visual assessment. Images are inadequate for LV wall motion assessment. Interventricular septum shows dyssynergy, consistent with previous thoracotomy, conduction delay or RV pacing. Diastolic function is indeterminate. RIGHT VENTRICLE: The cavity size is normal. Systolic function is normal. LEFT ATRIUM: The atrium is normal in size. RIGHT ATRIUM: The atrium is normal in size. ATRIAL SEPTUM: Not well visualized. AORTIC VALVE: The valve is probably trileaflet. The leaflets are thickened. Mobility is not restricted. There is no stenosis. There is no significant regurgitation. MITRAL VALVE: Mobility is not restricted. No evidence for prolapse. There is no evidence for stenosis. There is trivial regurgitation. TRICUSPID VALVE: Not well visualized. Mobility is unrestricted. There is no evidence for stenosis. There is trace regurgitation. PULMONIC VALVE: Not well visualized. There is no evidence for stenosis. There is no significant regurgitation. PERICARDIUM: There is no pericardial effusion. AORTA: Aortic root: The root is not dilated. Measurements Left ventricle Value Left atrium Value GARFIELD, LAX 3.5 cm AP dim, ES 3.4 cm ESD, LAX 2.8 cm AP dim index, ES 2.2 cm/m^2 GARFIELD/bsa, LAX 2.3 cm/m^2 SI dim, A4C 4.0 cm ESD/bsa, LAX 1.8 cm/m^2 Area ES, A4C 11 cm^2 FS, LAX 21 % Vol, S 24 ml ESD major ax, A4C 5.2 cm Vol/bsa, S 16 ml/m^2 ESD/bsa major ax, A4C 3.4 cm/m^2 Vol, ES, 1-p A4C 25 ml GARFIELD minor ax, A4C 5.2 cm Vol/bsa, ES, 1-p A4C 16 ml/m^2 GAR[place]/bsa minor ax, A4C 3.4 cm/m^2 Vol, ES, 1-p A2C 19 ml GARFIELD major ax, A2C 5.8 cm Vol/bsa, ES, 1-p A2C 12 ml/m^2 ESD major ax, A2C 5.3 cm Vol, ES, A/L 28 ml GAR[place]/bsa major ax, A2C 3.8 cm/m^2 Vol/bsa, ES, A/L 18 ml/m^2 ESD/bsa major ax, A2C 3.4 cm/m^2 IVS, ED 1.1 cm Right atrium Value ESD 2.8 cm Area, ES 7 cm^2 ESD/bsa 1.8 cm/m^2 Area, ES, A4C 7 cm^2 PW, ED 0.8 cm IVS/PW, ED 1.3 Aortic valve Value EDV, 1-p A2C 29 ml Peak v, S 123.03 cm/sec ESV, 1-p A2C 14 ml Peak grad, S 6 mm Hg EF, 1-p A2C 50 % LVOT/AV, Vpeak ratio 0.56 EDV/bsa, 1-p A2C 18 ml/m^2 ALONDRA, Vmax 1.48 cm^2 ESV/bsa, 1-p A2C 9 ml/m^2 ALONDRA/bsa, Vmax 0.96 cm^2/m^2 EDV, 1-p A4C 35 ml ESV, 1-p A4C 16 ml Mitral valve Value EF, 1-p A4C 54 % Peak E 109.57 cm/sec SV, 1-p A4C 19 ml Peak A 85.3 cm/sec EDV/bsa, 1-p A4C 22 ml/m^2 Decel time 232 ms ESV/bsa, 1-p A4C 10 ml/m^2 PHT 67 ms SV/bsa, 1-p A4C 12 ml/m^2 Peak grad, D 5 mm Hg EDV, 2-p 32 ml Peak E/A ratio 1.28 ESV, 2-p 15 ml MVA, PHT 3.27 cm^2 EF, 2-p 53 % MVA/bsa, PHT 2.11 cm^2/m^2 SV, 2-p 14 ml Vena contracta width 2.0 cm EDV/bsa, 2-p 20 ml/m^2 ESV/bsa, 2-p 10 ml/m^2 Tricuspid valve Value SV/bsa, 2-p 9.1 ml/m^2 TR peak v 188.51 cm/sec Peak RV-RA grad, S 14 mm Hg LVOT Value Diam, S 1.8 cm Ascending aorta Value Area 2.7 cm^2 AAo AP diam, S 2.4 cm Peak guillaume, S 68.38 cm/sec AAo AP diam/bsa, S 1.5 cm/m^2 Peak grad, S 2 mm Hg Right ventricle Value GARFIELD, LAX 2.0 cm GARFIELD 2.0 cm Legend: (L) and (H) brittany values outside specified reference range. [facility] Echo Labs are accredited with the Intersocietal Accreditation Commission - Echocardiography. Prepared and Electronically Authenticated Abdullahi Montero MD Confirmed 03/15/2025 08:20 Procedure Note Abdullahi Montero MD - 03/15/2025 [facility] Cardiovascular Services Echocardiography Laboratory [address] [place] [id number] Transthoracic Echocardiography Patient: Iris Sandy Study ID: ECHOCOMPLETReyna - Gender: Aleks : 1955 Age: 69 Room: [facility] Study Date: 03/15/2025 Pt Status: Inpatient Study Time: 07:13:44 AM CSN #: [id number] Ordering:Alyson Michelle Dye Padder Operator: Chey Saravia Indications and History: Av heart block. Summary and Conclusion: - Left ventricle: The cavity size is normal. Wall thickness is normal. Assessment of systolic function was difficult due to image quality.Global systolic function is low normal to mildly reduced. For Epic reporting:the left ventricular ejection fraction is 50% by visual assessment. Imagesare inadequate for LV wall motion assessment. Interventricular septumshows dyssynergy, consistent with previous thoracotomy, conduction delay orRV pacing. Diastolic function is indeterminate. - Right ventricle: The cavity size is normal. Systolic function isnormal. - Aortic valve: The valve is probably trileaflet. The leaflets arethickened. - Inferior vena cava: Pacer wire or catheter noted in IVCD. Procedure information: No prior study is available for comparison.Study status: Routine. Procedure: A transthoracic echocardiogram wasperformed. Image quality was adequate. Scanning was performed from the parasternal, apical, subcostal, and suprasternal notch acoustic windows.Study components: M-mode, 2D, complete spectral Doppler, and color Doppler. Height: 152cm. Height: 59.8in. Weight: 56kg. Weight: 123.5lb. BMI: 24.2kg/m^2. BSA: 1.55m^2. Blood pressure: 100/61 Studydate: 03/15/2025. Study time: 07:13 AM. Location: ICU/CCU Cardiac Anatomy: LEFT VENTRICLE: The cavity size is normal. Wall thickness is normal. Assessment of systolic function was difficult due to image quality.Global systolic function is low normal to mildly reduced. For Epic reporting:the left ventricular ejection fraction is 50% by visual assessment. Imagesare inadequate for LV wall motion assessment. Interventricular septum shows dyssynergy, consistent with previous thoracotomy, conduction delay or RV pacing. Diastolic function is indeterminate. RIGHT VENTRICLE: The cavity size is normal. Systolic function isnormal. LEFT ATRIUM: The atrium is normal in size. RIGHT ATRIUM: The atrium is normal in size. ATRIAL SEPTUM: Not well visualized. AORTIC VALVE: The valve is probably trileaflet. The leaflets arethickened. Mobility is not restricted. There is no stenosis. There is nosignificant regurgitation. MITRAL VALVE: Mobility is not restricted. No evidence for prolapse.There is no evidence for stenosis. There is trivial regurgitation. TRICUSPID VALVE: Not well visualized. Mobility is unrestricted. There isno evidence for stenosis. There is trace regurgitation. PULMONIC VALVE: Not well visualized. There is no evidence forstenosis. There is no significant regurgitation. PERICARDIUM: There is no pericardial effusion. AORTA: Aortic root: The root is not dilated. Measurements Left ventricle Value Left atrium Value GARFIELD, LAX 3.5 cm AP dim, ES 3.4 cm ESD, LAX 2.8 cm AP dim index, ES 2.2cm/m^2 GARFIELD/bsa, LAX 2.3 cm/m^2 SI dim, A4C 4.0 cm ESD/bsa, LAX 1.8 cm/m^2 Area ES, A4C 11 cm^2 FS, LAX 21 % Vol, S 24 ml ESD major ax, A4C 5.2 cm Vol/bsa, S 16ml/m^2 ESD/bsa major ax, A4C 3.4 cm/m^2 Vol, ES, 1-p A4C 25 ml GARFIELD minor ax, A4C 5.2 cm Vol/bsa, ES, 1-p A4C 16ml/m^2 GARFIELD/bsa minor ax, A4C 3.4 cm/m^2 Vol, ES, 1-p A2C 19 ml GAR[place] major ax, A2C 5.8 cm Vol/bsa, ES, 1-p A2C 12ml/m^2 ESD major ax, A2C 5.3 cm Vol, ES, A/L 28 ml GARFIELD/bsa major ax, A2C 3.8 cm/m^2 Vol/bsa, ES, A/L 18ml/m^2 ESD/bsa major ax, A2C 3.4 cm/m^2 IVS, ED 1.1 cm Right atrium Value ESD 2.8 cm Area, ES 7 cm^2 ESD/bsa 1.8 cm/m^2 Area, ES, A4C 7 cm^2 PW, ED 0.8 cm IVS/PW, ED 1.3 Aortic valve Value EDV, 1-p A2C 29 ml Peak v, S 123.03cm/sec ESV, 1-p A2C 14 ml Peak grad, S 6 mm Hg EF, 1-p A2C 50 % LVOT/AV, Vpeak ratio 0.56 EDV/bsa, 1-p A2C 18 ml/m^2 ALONDRA, Vmax 1.48 cm^2 ESV/bsa, 1-p A2C 9 ml/m^2 ALONDRA/bsa, Vmax 0.96cm^2/m^2 EDV, 1-p A4C 35 ml ESV, 1-p A4C 16 ml Mitral valve Value EF, 1-p A4C 54 % Peak E 109.57cm/sec SV, 1-p A4C 19 ml Peak A 85.3cm/sec EDV/bsa, 1-p A4C 22 ml/m^2 Decel time 232 ms ESV/bsa, 1-p A4C 10 ml/m^2 PHT 67 ms SV/bsa, 1-p A4C 12 ml/m^2 Peak grad, D 5 mm Hg EDV, 2-p 32 ml Peak E/A ratio 1.28 ESV, 2-p 15 ml MVA, PHT 3.27 cm^2 EF, 2-p 53 % MVA/bsa, PHT 2.11cm^2/m^2 SV, 2-p 14 ml Vena contracta width 2.0 cm EDV/bsa, 2-p 20 ml/m^2 ESV/bsa, 2-p 10 ml/m^2 Tricuspid valve Value SV/bsa, 2-p 9.1 ml/m^2 TR peak v 188.51cm/sec Peak RV-RA grad, S 14 mm Hg LVOT Value Diam, S 1.8 cm Ascending aorta Value Area 2.7 cm^2 AAo AP diam, S 2.4 cm Peak guillaume, S 68.38 cm/sec AAo AP diam/bsa, S 1.5cm/m^2 Peak grad, S 2 mm Hg Right ventricle Value GARFIELD, LAX 2.0 cm GARFIELD 2.0 cm Legend: (L) and (H) brittany values outside specified reference range. [facility] Echo Labs are accredited with theIntersocietal Accreditation Commission - Echocardiography. Prepared and Electronically Authenticated Abdullahi Montero MD Confirmed 03/15/2025 08:20 us Alyson ORTIZ US ORDERABLES Final Resu lt INTERFACE SYSTEM Refer to clinic/hospital department * (ABNORMAL) POC GLUCOSE (03/15/2025 6:54 AM CDT) GLUCOSE POC 206(H) 74 - 99 mg/dL 03/15/2025 6:54 AM CDT [facility] SPECIMEN SOURCE, GLUCOSE POC Capillary 03/15/2025 6:54 AM CDT [facility] Blood, whole 03/15/2025 6:54 AM CDT 03/15/2025 7:02 AM CDT Lesly De La Rosa MD POINT OF CARE TESTING Final Resu lt [facility] CLIA # [id number] [address] [address] [place] [address] * XR CHEST PA OR AP 1 VW (03/15/2025 5:12 AM CDT) Anatomical Region Laterality Modality Chest Computed Radiogr aphy 03/15/2025 5:12 AM CDT Impressions 03/15/2025 7:02 AM CDT IMPRESSION: Please see below. Exam: XR CHEST PA OR AP 1 VW Date/Time of Exam: 03/15/2025 5:12 AM Reason For Exam: Other - Please see comments, Comment: TPM. Diagnosis: Complete heart block (CMS/HCC); Syncope and collapse; Heart block AV complete (CMS/HCC). Findings: No pleural effusion or pneumothorax. No consolidating airspace disease. Cardiac silhouette within normal limits. Imaged skeleton without gross acute pathology. Narrative Procedure Note Chelsy Jeffrey MD - 03/15/2025 IMPRESSION: Please see below. Exam: XR CHEST PA OR AP 1 VW Date/Time of Exam: 03/15/2025 5:12 AM Reason For Exam: Other - Please see comments, Comment: TPM. Diagnosis: Complete heart block (CMS/HCC); Syncope and collapse; Heart block AV complete (CMS/HCC). Findings: No pleural effusion or pneumothorax. No consolidating airspace disease. Cardiac silhouette within normal limits. Imaged skeleton without gross acute pathology. Laura Herbie [facility] ORDERABLES Fi nal Result * (ABNORMAL) COMPREHENSIVE METABOLIC PANEL (03/15/2025 4:10 AM [facility]) SODIUM 134(L) 136 - 145 mmol/L 03/15/2025 5:27 AM [facility] POTASSIUM 3.9 3.5 - 5.1 mmol/L 03/15/2025 5:27 AM [facility] CHLORIDE 101 98 - 107 mmol/L 03/15/2025 5:27 AM [facility] CO2 24 22 - 29 mmol/L 03/15/2025 5:27 AM [facility] CALCIUM 8.7(L) 8.8 - 10.2 mg/dL 03/15/2025 5:27 AM [facility] BUN 14 8 - 23 mg/dL 03/15/2025 5:27 AM [facility] CREATININE 0.59 0.51 - 0.95 mg/dL 03/15/2025 5:27 AM [facility] GLUCOSE 176(H) 74 - 99 mg/dL 03/15/2025 5:27 AM [facility] TOTAL PROTEIN 6.0(L) 6.4 - 8.3 g/dL 03/15/2025 5:27 AM [facility] ALBUMIN 3.2(L) 3.5 - 5.2 g/dL 03/15/2025 5:27 AM [facility] BILIRUBIN TOTAL 0.6 0.0 - 1.0 mg/dL 03/15/2025 5:27 AM [facility] ALKALINE PHOSPHATASE 72 35 - 104 U/L 03/15/2025 5:27 AM [facility] AST 26 10 - 35 U/L 03/15/2025 5:27 AM [facility] ALT 39(H) <=35 U/L 03/15/2025 5:27 AM [facility] GFR >60 >=60 mL/min/1.7 3 sq meter 03/15/2025 5:27 AM T [facility] Comment:eGFR calculated with 2020 CKD-EPI equation. Vegetarian diet, extremely high or low muscle mass, and may affect results. Cystatin C with Glomerular Filtration Rate is a suitable alternative for these patients. ANION GAP 9 9 - 20 mmol/L 03/15/2025 5:27 AM T [facility] Blood Venipuncture / Unknown 03/15/2025 4:10 AM CDT 03/15/2025 4:25 AM CDT us Laura Stoner NP CHEMISTRY ORDERABLES Final Resul t [facility] CLIA # [id number] [address] [place] [address] * (ABNORMAL) CBC WITH DIFFERENTIAL (03/15/2025 4:10 AM CDT) WBC 8.2 4.8 - 10.8 K/uL 03/15/2025 4:31 AM [facility] RBC 5.07 4.20 - 5.40 M/uL 03/15/2025 4:31 AM T [facility] HEMOGLOBIN 13.5 12.0 - 16.0 g/dL 03/15/2025 4:31 AM [facility] HEMATOCRIT 41.6 36.0 - 46.0 % 03/15/2025 4:31 AM T [facility] MCV 82.1(L) 84.0 - 103.0 fL 03/15/2025 4:31 AM [facility] MCH 26.6(L) 27.0 - 34.0 pg 03/15/2025 4:31 AM T [facility] MCHC 32.5 30.0 - 35.0 g/dL 03/15/2025 4:31 AM [facility] PLATELETS 168 140 - 440 K/uL 03/15/2025 4:31 AM [facility] MPV 10.4 8.9 - 12.8 fL 03/15/2025 4:31 AM [facility] RDW 16.3(H) 11.0 - 14.5 % 03/15/2025 4:31 AM [facility] RDW-STDEV 48.5 37.0 - 54.0 fL 03/15/2025 4:31 AM [facility] NEUTROPHILS 68 42 - 75 % 03/15/2025 4:31 AM [facility] LYMPHOCYTES 24 24 - 44 % 03/15/2025 4:31 AM [facility] MONOCYTES 8 2 - 10 % 03/15/2025 4:31 AM [facility] EOSINOPHILS 0 0 - 7 % 03/15/2025 4:31 AM [facility] BASOPHILS 0 0 - 1 % 03/15/2025 4:31 AM [facility] IMMATURE GRANULOCYTES 0 0 - 2 % 03/15/2025 4:31 AM [facility] NEUTROPHIL ABSOLUTE 5.55 2.00 - 8.00 K/uL 03/15/2025 4:31 AM [facility] LYMPHOCYTE ABSOLUTE 1.94 1.20 - 4.00 K/uL 03/15/2025 4:31 AM [facility] MONOCYTE ABSOLUTE 0.65(H) 0.10 - 0.60 K/uL 03/15/2025 4:31 AM [facility] EOSINOPHIL ABSOLUTE 0.02 0.00 - 0.70 K/uL 03/15/2025 4:31 AM [facility] BASOPHILS ABSOLUTE 0.01 0.00 - 0.20 K/uL 03/15/2025 4:31 AM [facility] IMMATURE GRANULOCYTES ABSOLUTE 0.03 0.00 - 0.10 K/uL 03/15/2025 4:31 AM [facility] SMEAR REVIEWED: NA - Not Applicable 03/15/2025 4:31 AM [facility] Blood Venipuncture / Unknown 03/15/2025 4:10 AM CDT 03/15/2025 4:24 AM CDT Laura Stoner NP HEMATOLOGY ORDERABLES Final Resu lt Performing Organization Address [facility]/ZIP Co de Phone Number [facility] CLIA # [id number] [address] [address] [place] [address] * (ABNORMAL) POC GLUCOSE (03/15/2025 4:09 AM CDT) GLUCOSE POC 184(H) 74 - 99 mg/dL 03/15/2025 4:09 AM CDT [facility] SPECIMEN SOURCE, GLUCOSE POC Venous 03/15/2025 4:09 AM CDT [facility] Blood, whole 03/15/2025 4:09 AM CDT 03/15/2025 4:17 AM CDT us Lesly De La Rosa MD POINT OF CARE TESTING Final Resu lt Performing Organization Address [facility] [[email or web address]] Co de Phone Number [facility] CLIA # [id number] [address] [address] * (ABNORMAL) POC GLUCOSE (03/14/2025 11:25 PM CDT) GLUCOSE POC 283(H) 74 - 99 mg/dL 03/14/2025 11:25 PM CDT [facility] SPECIMEN SOURCE, GLUCOSE POC Capillary 03/14/2025 11:25 PM CDT [facility] Blood, whole 03/14/2025 11:2 5 PM CDT 03/14/2025 11:39 PM CDT Lesly De La Rosa MD POINT OF CARE TESTING Final Resu lt [facility] CLIA # [id number] [address] [facility] [place], [place] [id number] * TROPONIN 6 HR, 5TH GEN (03/14/2025 9:02 PM CDT) Pathologist [facility] TROPONIN T, 6 HR 5TH GEN 8 <11 ng/L 03/14/2025 9:45 PM CDT [facility] DELTA 6HR TROPONIN T -2 See Interp. 03/14/2025 9:45 PM CDT [facility] Blood Venipuncture / Unknown 03/14/2025 9:02 PM CDT 03/14/2025 9:09 PM CDT Narrative [facility] - 03/14/2025 9:45 PM CDT Troponin Detectable but normal range. Delta indeterminate. Janeth Moore DO CHEMISTRY ORDERABLES Final Resul t [facility] CLIA # [id number] [address] [address] [place], [place] [address] * (ABNORMAL) POC GLUCOSE (03/14/2025 8:02 PM CDT) [facility] [facility] GLUCOSE POC 176(H) 74 - 99 mg/dL 03/14/2025 8:02 PM CDT [facility] SPECIMEN SOURCE, GLUCOSE POC Capillary 03/14/2025 8:02 PM CDT [facility] Blood, whole 03/14/2025 8:02 PM CDT 03/14/2025 8:12 PM CDT Lesly De La Rosa MD POINT OF CARE TESTING Final Resu lt [facility] CLIA # [id number] [address] [facility] [place] [address] * (ABNORMAL) CBC WITH DIFFERENTIAL (03/14/2025 5:11 PM CDT) [facility] WBC 8.0 4.8 - 10.8 K/uL 03/14/2025 5:25 PM CDT [facility] RBC 4.95 4.20 - 5.40 M/uL 03/14/2025 5:25 PM CDT [facility] HEMOGLOBIN 12.9 12.0 - 16.0 g/dL 03/14/2025 5:25 PM CDT [facility] HEMATOCRIT 41.2 36.0 - 46.0 % 03/14/2025 5:25 PM CDT [facility] MCV 83.2(L) 84.0 - 103.0 fL 03/14/2025 5:25 PM CDT [facility] MCH 26.1(L) 27.0 - 34.0 pg 03/14/2025 5:25 PM CDT [facility] MCHC 31.3 30.0 - 35.0 g/dL 03/14/2025 5:25 PM CDT [facility] PLATELETS 168 140 - 440 K/uL 03/14/2025 5:25 PM CDT [facility] MPV 10.6 8.9 - 12.8 fL 03/14/2025 5:25 PM CDT [facility] RDW 16.0(H) 11.0 - 14.5 % 03/14/2025 5:25 PM CDT [facility] RDW-STDEV 48.3 37.0 - 54.0 fL 03/14/2025 5:25 PM CDT [facility] NEUTROPHILS 62 42 - 75 % 03/14/2025 5:25 PM CDT [facility] LYMPHOCYTES 28 24 - 44 % 03/14/2025 5:25 PM CDT [facility] MONOCYTES 9 2 - 10 % 03/14/2025 5:25 PM CDT [facility] EOSINOPHILS 0 0 - 7 % 03/14/2025 5:25 PM CDT [facility] BASOPHILS 0 0 - 1 % 03/14/2025 5:25 PM CDT [facility] IMMATURE GRANULOCYTES 0 0 - 2 % 03/14/2025 5:25 PM CDT [facility] NEUTROPHIL ABSOLUTE 5.01 2.00 - 8.00 K/uL 03/14/2025 5:25 PM CDT [facility] LYMPHOCYTE ABSOLUTE 2.27 1.20 - 4.00 K/uL 03/14/2025 5:25 PM CDT [facility] MONOCYTE ABSOLUTE 0.70(H) 0.10 - 0.60 K/uL 03/14/2025 5:25 PM CDT [facility] EOSINOPHIL ABSOLUTE 0.03 0.00 - 0.70 K/uL 03/14/2025 5:25 PM CDT [facility] BASOPHILS ABSOLUTE 0.01 0.00 - 0.20 K/uL 03/14/2025 5:25 PM CDT [facility] IMMATURE GRANULOCYTES ABSOLUTE 0.02 0.00 - 0.10 K/uL 03/14/2025 5:25 PM CDT [facility] SMEAR REVIEWED: NA - Not Applicable 03/14/2025 5:25 PM CDT [facility] Blood Venipuncture / Unknown 03/14/2025 5:11 PM CDT 03/14/2025 5:18 PM CDT us Janeth Moore DO HEMATOLOGY ORDERABLES Final Resu lt [facility] CLIA # [id number] [address] [facility] [place] [address] * EKG 12-LEAD (03/14/2025 5:00 PM CDT) 03/14/2025 5:00 PM CDT Narrative INTERFACE SYSTEM - 03/14/2025 5:20 PM CDT [facility] [address] [place] [address] Test Date: 2025-03-14 Pat Name: IRIS SANDY Department: 11 Room: H H 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 : 1955 Requested By: Order Number: [id number] Reading MD: Ollie Padron Measurements Intervals [place] Rate: 76 P: 0 HI: 0 QRS: 0 QRSD: 106 T: 85 QT: 398 QTc: 447 Interpretive Statements Sinus rhythm with frequent ventricular-paced complexes Incomplete left bundle branch block Nonspecific ST and T wave abnormality Abnormal ECG Electronically Signed On 03-14-2025 17:20:32 CDT by Ollie Padron Procedure Note Ollie Padron MD - 03/14/[address] [address] Test Date: 2025-03-14 Pat Name: IRIS SANDY Department: 11 Room: H H 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: [id number] : 1955 Requested By: Order Number: [id number] Reading MD: Ollie Padron Measurements Intervals [place] Rate: 76 P: 0 HI: 0 QRS: 0 QRSD: 106 T: 85 QT: 398 QTc: 447 Interpretive Statements Sinus rhythm with frequent ventricular-paced complexes Incomplete left bundle branch block Nonspecific ST and T wave abnormality Abnormal ECG Electronically Signed On 03-14-2025 17:20:32 CDT by Ollie Padron Alyson Michelle LOAN AND CREDIT MANAGER ECG ORDERABLES Final Resu lt INTERFACE SYSTEM Refer to clinic/hospital department * XR CHEST PA OR AP 1 VW (03/14/2025 3:54 PM CDT) Anatomical Region Laterality Modality Chest Computed Radiogr aphy 03/14/2025 3:54 PM CDT Impressions 03/14/2025 4:03 PM CDT IMPRESSION: Pacemaker lead extends into the right ventricle. Narrative 03/14/2025 4:03 PM CDT Exam: XR CHEST PA OR AP 1 VW Date/Time of Exam: 03/14/2025 3:54 PM Reason For Exam: Chest Pain. Diagnosis: See Reason for Exam. Findings: The cardiomediastinal silhouette is normal in size and contour. A pacemaker lead has been placed from a femoral approach and likely terminates in the right ventricle. The lung volumes are normal. Mild vascular congestion is noted centrally. No pleural effusion or pneumothorax. Procedure Note Clyde He MD - 03/14/2025 Exam: XR CHEST PA OR AP 1 VW Date/Time of Exam: 03/14/2025 3:54 PM Reason For Exam: Chest Pain. Diagnosis: See Reason for Exam. Findings: The cardiomediastinal silhouette is normal in size and contour. A pacemaker lead has been placed from a femoral approach and likely terminates in the right ventricle. The lung volumes are normal. Mild vascular congestion is noted centrally. No pleural effusion or pneumothorax. IMPRESSION: Pacemaker lead extends into the right ventricle. [employer] Janeth Moore DO DIAGNOSTIC IMAGING ORDERABLES Fi nal Result * (ABNORMAL) BRAIN NATRIURETIC PEPTIDE, BNP OR PROBNP (03/14/2025 3:36 PM CDT) PROBNP, N TERMINAL 1,004(H) 0 - 125 pg/mL 03/14/2025 4:49 PM CDT [facility] Comment: INTERPRETIVE COMMENT based on diagnosis: Diagnostic NT pro-BNP cutoffs for Heart Failure in the absence of renal failure is suggested for the following ranges <75 years: <125 pg/mL >=75 years: <450 pg/mL Exclusionary rule out cut-point for Acute Decompensated Heart Failure(ADHF) All ages: <300 pg/mL Diagnostic NT pro-BNP cutoffs for Acute Decompensated Heart Failure(ADHF) in the absence of renal failure is suggested for the following ages <50 years: > 450 pg/mL 50-75 years: > 900 pg/mL >75 years: >1800 pg/mL Blood Venipuncture / Unknown 03/14/2025 3:36 PM CDT 03/14/2025 3:51 PM CDT [employer] Janeth Moore DO CHEMISTRY ORDERABLES Final Resul t [facility] CLIA # [id number] [address] [address] [place], [place] [address] * MAGNESIUM LEVEL (03/14/2025 3:36 PM CDT) MAGNESIUM 2.0 1.6 - 2.4 mg/dL 03/14/2025 4:49 PM CDT [facility] Blood Venipuncture / Unknown 03/14/2025 3:36 PM CDT 03/14/2025 3:51 PM CDT Janeth Moore DO CHEMISTRY ORDERABLES Final Resul t Performing Organization Address [facility] [[email or web address]] Co de Phone Number [facility] CLIA # [id number] [address] [address] [place], [place] [id number] * TROPONIN BASELINE, 5TH GEN (03/14/2025 3:36 PM CDT) TROPONIN T, BASELINE 5TH GEN 10 <=10 ng/L 03/14/2025 5:05 PM CDT [facility] Blood Venipuncture / Unknown 03/14/2025 3:36 PM CDT 03/14/2025 3:51 PM CDT Narrative [facility] - 03/14/2025 5:05 PM CDT Troponin Detectable but normal range. Janeth Moore DO CHEMISTRY ORDERABLES Final Resul t Performing Organization Address City/[facility]/ZIP Co de Phone Number [facility] CLIA # [id number] [address] [address] [place] [address] * (ABNORMAL) COMPREHENSIVE METABOLIC PANEL (03/14/2025 3:36 PM CDT) SODIUM 140 136 - 145 mmol/L 03/14/2025 4:49 PM [facility] POTASSIUM 4.7 3.5 - 5.1 mmol/L 03/14/2025 4:49 PM [facility] CHLORIDE 105 98 - 107 mmol/L 03/14/2025 4:49 PM [facility] CO2 23 22 - 29 mmol/L 03/14/2025 4:49 PM [facility] CALCIUM 9.4 8.8 - 10.2 mg/dL 03/14/2025 4:49 PM [facility] BUN 22 8 - 23 mg/dL 03/14/2025 4:49 PM [facility] CREATININE 0.68 0.51 - 0.95 mg/dL 03/14/2025 4:49 PM [facility] GLUCOSE 246(H) 74 - 99 mg/dL 03/14/2025 4:49 PM [facility] TOTAL PROTEIN 6.2(L) 6.4 - 8.3 g/dL 03/14/2025 4:49 PM [facility] ALBUMIN 3.4(L) 3.5 - 5.2 g/dL 03/14/2025 4:49 PM [facility] BILIRUBIN TOTAL 0.4 0.0 - 1.0 mg/dL 03/14/2025 4:49 PM [facility] ALKALINE PHOSPHATASE 72 35 - 104 U/L 03/14/2025 4:49 PM [facility] AST 38(H) 10 - 35 U/L 03/14/2025 4:49 PM [facility] ALT 49(H) <=35 U/L 03/14/2025 4:49 PM [facility] GFR >60 >=60 mL/min/1.7 3 sq meter 03/14/2025 4:49 PM [facility] Comment:eGFR calculated with 2020 CKD-EPI equation. Vegetarian diet, extremely high or low muscle mass, and may affect results. Cystatin C with Glomerular Filtration Rate is a suitable alternative for these patients. ANION GAP 12 9 - 20 mmol/L 03/14/2025 4:49 PM CDT [facility] [employer] [facility] Blood Venipuncture / Unknown 03/14/2025 3:36 PM CDT 03/14/2025 3:51 PM CDT Janeth Moore DO CHEMISTRY ORDERABLES Final Resul t Performing Organization Address [facility] [[email or web address]] Co de Phone Number [facility] [employer] [facility] CLIA # [id number] [address] [place] [address] * PROTIME-INR (03/14/2025 3:36 PM CDT) PROTIME 14.2 12.7 - 14.9 Seconds 03/14/2025 4:08 PM CDT [facility] [employer] [facility] INR 1.0 0.8 - 1.2 03/14/2025 4:08 PM CDT [facility] [employer] [facility] Blood Venipuncture / Unknown 03/14/2025 3:36 PM CDT 03/14/2025 3:50 PM CDT Narrative [facility] [employer] [facility] - 03/14/2025 4:08 PM CDT Expected Values for INR: DVT/PE Goal INR 2.5; range 2.0 - 3.0 Valve Replacement Tissue Goal INR 2.5; range 2.0 - 3.0 Valve Replacement Mechanical Goal INR 3.0; range 2.5 - 3.5 POST-OH Goal INR 2.5; range 2.0 - 3.0 or Goal INR 3.0; range 2.5 - 3.5 Atrial Fibrillation Goal INR 2.5; range 2.0 - 3.0 Ischemic Stroke Goal INR 2.5; range 2.0 - 3.0 Janeth Moore DO HEMATOLOGY ORDERABLES Final Resu lt Performing Organization Address City/[facility]/ZIP Co de Phone Number [facility] [employer] [facility] CLIA # [id number] [address] [facility] 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 : 1955 Requested By: Order Number: [id number] Reading MD: Ollie Padron Measurements Intervals [place] Rate: 58 P: 0 HI: 0 QRS: 16 QRSD: 112 T: 93 QT: 432 QTc: 424 Interpretive Statements Ventricular pacemaker with [place] complexes Minimal voltage criteria for LVH, may be normal variant ( Reddy product ) Abnormal QRS-T angle, consider primary T wave abnormality Abnormal ECG Electronically Signed On 03-14-2025 16:01:20 CDT by Ollie Padron Procedure Note Ollie Padron MD - 03/14/2025 [place] [address] Test Date: 2025-03-14 Pat Name: IRIS SANDY Department: 11 Room: H H Gender: F 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: [id number] : 1955 Requested By: Order Number: [id number] Reading MD: Ollie Padron Measurements Intervals [place] Rate: 58 P: 0 HI: 0 QRS: 16 QRSD: 112 T: 93 QT: 432 QTc: 424 Interpretive Statements Ventricular pacemaker with [place] complexes Minimal voltage criteria for LVH, may be normal variant ( Reddy product) Abnormal QRS-T angle, consider primary T wave abnormality Abnormal ECG Electronically Signed On 03-14-2025 16:01:20 CDT by Ollie Padron us Janeth Moore DO ECG ORDERABLES Final Result INTERFACE SYSTEM Refer to clinic/hospital department documented in this encounter Visit Diagnoses Diagnosis Heart block AV complete (CMS/HCC)- Primary Atrioventricular block, complete Complete heart block (CMS/HCC) Atrioventricular block, complete Syncope and collapse CHB (complete heart block) (CMS/HCC) Atrioventricular block, complete Junctional escape rhythm (CMS/HCC) Other premature beats Complete heart block (CMS/HCC) Atrioventricular block, complete Syncope and collapse Type 2 diabetes mellitus with hyperglycemia Type II or unspecified type diabetes mellitus without mention of complication, not stated as uncontrolled Renal transplant recipient Temporary transvenous cardiac pacemaker present CHB (complete heart block) (CMS/HCC) Atrioventricular block, complete documented in this encounter Admitting Diagnoses Diagnosis Heart block AV complete (CMS/HCC) Atrioventricular block, complete CHB (complete heart block) (CMS/HCC) Atrioventricular block, complete documented in this encounter Administered Medications Inactive Administered Medications - up to 3 most recent administrations Medication Order MAR Action Action Date Dose Rate Site acetaminophen (TYLENOL) tablet 650 mg 650 mg, Oral, EVERY 6 HOURS PRN, Starting on Tue03/15/25 at 1303, Until 03/16/25 at 1631, Other (See Comment), See admin instructions, Routine, Post-Procedure (Invasive Cardiology) Given 03/16/2025 3:08 AM CDT 650 mg Given 03/15/2025 9:08 PM CDT 650 mg dextrose 5 % - sodium chloride 0.9 % infusion IV, at 40 mL/hr, SEE ADMIN INSTRUCTIONS, Starting on Tue03/15/25 at 1031, Until 03/16/25 at 1631, Routine dextrose 50% (D50) syringe 12.5 Gram 12.5 Gram, IV, SEE ADMIN INSTRUCTIONS, Starting on Tue03/15/25 at 1031, Until 03/16/25 at 1631, Routine dextrose 50% (D50) syringe 25 Gram 25 Gram, IV, SEE ADMIN INSTRUCTIONS, Starting on Tue03/15/25 at 1031, Until 03/16/25 at 1631, Routine glucagon HCL 1 mg/mL injection 1 mg 1 mg, IM, SEE ADMIN INSTRUCTIONS, Starting on Tue03/15/25 at 1031, Until 03/16/25 at 1631, Routine HYDROcodone-acetaminophen (NORCO) 5-325 mg per tablet 1 Tablet 1 Tablet, Oral, EVERY 4 HOURS PRN, Starting on Tue03/15/25 at 1303, Until 03/16/25 at 1631, Pain (See admin instructions), Routine, Post-Procedure (Invasive Cardiology) insulin glargine (LANTUS) injection 10 Units 10 Units, subCUT, DAILY WITH BREAKFAST, First dose on Tue03/15/25 at 1045, Until Discontinued, Stat Given 03/16/2025 7:29 AM CDT 10 Units Abdomen, Left Lower Quadrant Given 03/15/2025 11:10 AM CDT 10 Units A bdomen, Left Lower Quadrant insulin lispro (HumaLOG,ADMELOG) injection 0-12 Units 0-12 Units, subCUT, EVERY 4 HOURS, First dose on Marilou 03/14/25 at 2000, Until Discontinued, Routine Given 03/16/2025 11:41 AM CDT 6 Units Abdomen, Left Lower Quadrant Given 03/15/2025 11:12 PM CDT 4 Units A bdomen, Left Lower Quadrant Given 03/15/2025 9:12 PM CDT 4 Units Ab domen, Left Lower Quadrant magnesium SULFATE in water 2 gram/50 mL (4 %) IVPB 2 Gram 2 Gram, IV, ONE TIME ONLY, 1 dose, On 03/16/25 at 0830, Routine New Bag 03/16/2025 8:51 AM CDT 2 Grams 25 mL/hr mycophenolate mofetil (CELLCEPT) tablet 500 mg 500 mg, Oral, TWO TIMES DAILY, First dose on Tue03/15/25 at 0900, Until Discontinued, Routine, Previous Med: mycophenolate mofetil (CELLCEPT) 500 mg tablet - Orig Sig - Take 500 mg by mouth 2 times daily. Given 03/16/2025 8:36 AM CDT 500 mg Given 03/15/2025 9:08 PM CDT 500 mg Given 03/15/2025 8:42 AM CDT 500 mg naloxone (NARCAN) 0.4 mg/mL injection 0.1-0.4 mg 0.1-0.4 mg, IV, SEE ADMIN INSTRUCTIONS, Starting on Marilou 03/14/25 at 1846, Until Tue03/16/25 at 1631, Routine potassium CHLORIDE (KLOR-CON) SR tablet 40 mEq 40 mEq, Oral, ONE TIME ONLY, 1 dose, On 03/16/25 at 0830, Routine Given 03/16/2025 8:36 AM CDT 40 mEq potassium CHLORIDE 20 mEq/100 mL IVPB 20 mEq 20 mEq, IV, EVERY 2 HOURS, 2 doses, First dose on Tue03/15/25 at 0600, Last dose on Tue03/15/25 at 0800, Routine New Bag 03/15/2025 6:04 AM CDT 20 mEq 50 mL/hr predniSONE (DELTASONE) tablet 5 mg 5 mg, Oral, DAILY WITH BREAKFAST, First dose on Tue03/14/25 at 1900, Until Discontinued, Routine, Previous Med: predniSONE (DELTASONE) 5 mg tablet - Orig Sig - Take 5 mg by mouth daily with breakfast. Given 03/16/2025 8:36 AM CDT 5 mg Given 03/15/2025 8:30 AM CDT 5 mg Given 03/14/2025 7:59 PM CDT 5 mg sirolimus (RAPAMUNE) tablet 1 mg 1 mg, Oral, DAILY, First dose on Tue03/15/25 at 0900, Until Discontinued, Routine, Previous Med: sirolimus (RAPAMUNE) 1 mg tablet - Orig Sig - Take 1 mg by mouth daily. Given 03/16/2025 8:36 AM CDT 1 mg Given 03/15/2025 8:42 AM CDT 1 mg documented in this encounter Active and Recently Administered Medications Times are shown in CDT. Scheduled Medication Order 03/14/2025 03/15/2025 03/16/2025 dextrose 5 % - sodium chloride 0.9 % infusion IV, at 40 mL/hr, SEE ADMIN INSTRUCTIONS, Starting on Tue03/15/25 at 1031, Until 03/16/25 at 1631, Routine dextrose 50% (D50) syringe 12.5 Gram 12.5 Gram, IV, SEE ADMIN INSTRUCTIONS, Starting on Tue03/15/25 at 1031, Until 03/16/25 at 1631, Routine dextrose 50% (D50) syringe 25 Gram 25 Gram, IV, SEE ADMIN INSTRUCTIONS, Starting on Tue03/15/25 at 1031, Until 03/16/25 at 1631, Routine glucagon HCL 1 mg/mL injection 1 mg 1 mg, IM, SEE ADMIN INSTRUCTIONS, Starting on Tue03/15/25 at 1031, Until 03/16/25 at 1631, Routine insulin glargine (LANTUS) injection 10 Units 10 Units, subCUT, DAILY WITH BREAKFAST, First dose on Tue03/15/25 at 1045, Until Discontinued, Stat 1110 (Given - Provider: Eliezer Reyes RN) 0729 (Given - Provider: Amanda Madsen RN) insulin lispro (HumaLOG,ADMELOG) injection 0-12 Units 0-12 Units, subCUT, EVERY 4 HOURS, First dose on Marilou 03/14/25 at 2000, Until Discontinued, Routine 1999 (Not Given - Provider: Adriane Schulte RN - Reason: Lab results / vitals)2326 (Given - Provider: Adriane Schulte RN - Comment: BG 283) 0410 (Given - Provider: Adriane Schulte RN)0750 (Given - Provider: Eliezer Reyes RN)1200 (Not Given - Provider: Eliezer Reyes RN - Reason: Lab results / vitals - Comment: BG 131)1649 (Given - Provider: Eliezer Reyes RN - Comment: BG 345)2112 (Given - Provider: Kristy Self RN - Comment: bg 227)2312 (Given - Provider: Kristy Self RN - Comment: bg 247) 0400 (Not Given - Provider: Kristy Self RN - Reason: Clarify-Other (Comment) - Comment: bg 147)0728 (Not Given - Provider: Amanda Madsen RN - Reason: Lab results / vitals - Comment: 153)1141 (Given - Provider: Amanda Madsen RN - Comment: 293) magnesium SULFATE in water 2 gram/50 mL (4 %) IVPB 2 Gram (COMPLETED) 2 Gram, IV, ONE TIME ONLY, 1 dose, On 03/16/25 at 0830, Routine 0851 (New Bag - Provider: Amanda Madsen RN)1051 (Stopped - Provider: Amanda Madsen RN) mycophenolate mofetil (CELLCEPT) tablet 500 mg 500 mg, Oral, TWO TIMES DAILY, First dose on Tue03/15/25 at 0900, Until Discontinued, Routine, Previous Med: mycophenolate mofetil (CELLCEPT) 500 mg tablet - Orig Sig - Take 500 mg by mouth 2 times daily. 0842 (Given - Provider: Eliezer Reyes RN)2107 (Given - Provider: Kristy Self RN) 0836 (Given - Provider: Amanda Madsen, STEVEN) naloxone (NARCAN) 0.4 mg/mL injection 0.1-0.4 mg 0.1-0.4 mg, IV, SEE ADMIN INSTRUCTIONS, Starting on Marilou 03/14/25 at 1846, Until 03/16/25 at 1631, Routine potassium CHLORIDE (KLOR-CON) SR tablet 40 mEq (COMPLETED) 40 mEq, Oral, ONE TIME ONLY, 1 dose, On 03/16/25 at 0830, Routine 0836 (Given - Provider: Amanda Madsen RN) potassium CHLORIDE 20 mEq/100 mL IVPB 20 mEq () 20 mEq, IV, EVERY 2 HOURS, 2 doses, First dose on Tue03/15/25 at 0600, Last dose on Tue03/15/25 at 0800, Routine 0604 (New Bag - Provider: Adriane Schulte RN)0759 (Stopped - Provider: Eliezer Reyes RN)0800 (Not Given - Provider: Eliezer Reyes RN - Reason: Clarify-Other (Comment)) predniSONE (DELTASONE) tablet 5 mg 5 mg, Oral, DAILY WITH BREAKFAST, First dose on Tue03/14/25 at 1900, Until Discontinued, Routine, Previous Med: predniSONE (DELTASONE) 5 mg tablet - Orig Sig - Take 5 mg by mouth daily with breakfast. 1958 (Given - Provider: Adriane Schulte RN) 829 (Given - Provider: Eliezer Reyes RN) 36 (Given - Provider: Amanda Madsen, STEVEN) sirolimus (RAPAMUNE) tablet 1 mg 1 mg, Oral, DAILY, First dose on Tue03/15/25 at 0900, Until Discontinued, Routine, Previous Med: sirolimus (RAPAMUNE) 1 mg tablet - Orig Sig - Take 1 mg by mouth daily. 42 (Given - Provider: Eliezer Reyes RN) 0836 (Given - Provider: Amanda Madsen RN) PRN Medication Order 03/14/2025 03/15/2025 03/16/2025 acetaminophen (TYLENOL) tablet 650 mg 650 mg, Oral, EVERY 6 HOURS PRN, Starting on Tue03/15/25 at 1303, Until 03/16/25 at 1631, Other (See Comment), See admin instructions, Routine, Post-Procedure (Invasive Cardiology) 2107 (Given - Provider: Kristy Self, STEVEN) 030 (Given - Provider: Kristy Self, STEVEN) ceFAZolin (ANCEF,KEFZOL) 2,000 mg in sodium chloride 0.9 % 50 mL IVPB (COMPLETED) CONTINUOUS PRN, Starting on Tue03/15/25 at 1201, Until Tue03/15/25 at 1246, Routine, Intra-Procedure (Invasive Cardiology) 1201 (New Bag - Provider: Quinten Bailey, STEVEN) fentaNYL PF (SUBLIMAZE) 50 mcg/mL injection (CANCELED) ONE TIME PRN, Starting on Tue03/15/25 at 1204, Until Tue03/15/25 at 1246, Routine, Intra-Procedure (Invasive Cardiology) 1204 (Given - Provider: Quinten Bailey, STEVEN) fentaNYL PF (SUBLIMAZE) 50 mcg/mL injection (CANCELED) ONE TIME PRN, Starting on Tue03/15/25 at 1210, Until Tue03/15/25 at 1246, Routine, Intra-Procedure (Invasive Cardiology) 1210 (Given - Provider: Quinten Bailey, STEVEN) HYDROcodone-acetaminophen (NORCO) 5-325 mg per tablet 1 Tablet 1 Tablet, Oral, EVERY 4 HOURS PRN, Starting on Tue03/15/25 at 1303, Until 03/16/25 at 1631, Pain (See admin instructions), Routine, Post-Procedure (Invasive Cardiology) iopamidoL (ISOVUE-300) 61% injection (drawn from multi-use bulk pack) (CANCELED) ONE TIME PRN, Starting on Tue03/15/25 at 1214, Until Tue03/15/25 at 1246, Routine, Intra-Procedure (Invasive Cardiology) 1214 (Given - Provider: Quinten Bailey, STEVEN) lidocaine 1 % (XYLOCAINE) injection (CANCELED) ONE TIME PRN, Starting on Tue03/15/25 at 1209, Until Tue03/15/25 at 1246, Routine, Intra-Procedure (Invasive Cardiology) 1209 (Given - Provider: Vira Mann MD) midazolam (VERSED) injection (CANCELED) ONE TIME PRN, Starting on Tue03/15/25 at 1204, Until Tue03/15/25 at 1246, Routine, Intra-Procedure (Invasive Cardiology) 1204 (Given - Provider: Quinten Bailey RN) documented in this encounter
--- OUTSIDE RECORDS SUMMARY | 2025-03-15 12:00 | XMS_ITS | Encounter Summary ---
Author Organization [facility] Address [address] [place] [address] Care Team Providers Care Hot Roll Laminator Name Role Phone Unavailable Primary Care Provider Unavailabl e Reason for Visit * Reason Comments general weakness Patient arrives via EMS as transfer from [facility]. Patient was found to be in Junctional rhythm, then progressed to 3rd Degree Block and put on transvenous pacing. * Auth/Cert (Routine) Specialty Diagnoses / Procedures Referred By Franny ray Referred To Contact Emergency Medicine Diagnoses Bradycardia, temporary pacer placed [facility] Emergency Department [address] [place] [address] Phone: tel: fax: Referral ID Status Reason Start Date Expiration Date Visits Re quested Visits Authorized [id number] 1 1 Encounter Details Date Type Department Care Team (Late st Contact Info) Description 03/15/2025 12:00 PM CDT - 03/15/2025 1:[address] [facility] Cardiac Associate Marketing Manager [address] [place] [address] Vira Mann MD [address] [facility] [address] [place] [address] Pacemaker insertion, Medtornic dual chamber Social History Tobacco Use Types Packs/Day Years [...] file Travel History Travel Start Travel End [place] 02/11/2025 03/14/2025 documented as of this encounter Last Filed Vital Signs Vital Sign Reading Time Taken Comments Blood Pressure 124/75 03/15/2025 12:44 PM CDT Pulse 70 03/15/2025 11:15 AM CDT Temperature 36.9 C (98.5 F) 03/15/2025 11:00 AM CDT Respiratory Rate 12 03/15/2025 12:44 PM CDT Oxygen Saturation 95% 03/15/2025 12:44 PM CDT Inhaled Oxygen Concentration - - Weight 56 kg (123 lb 7.3 oz) 03/15/2025 10:05 AM CDT Height 149.9 cm (4' 11 ) 03/15/2025 10:05 AM CDT Body Mass Index 24.53 03/15/2025 10:05 AM CDT documented in this encounter Discharge Summaries * Justyna Burnette MD - 03/16/2025 1:08 PM CDT Patient: Iris Sandy / 69 y.o. / female : 1955 [facility]: [id number] Admission date: 03/14/2025 Discharge date: 03/16/2025 Admitting [...] is functioning well Patient is visiting from [place]- family expressed that she will stay in town so that she can followup with pacer clinic in [address] Mann, Electrophysiology in 3 months time #History of renal transplant. Long-term care in [facility]. No signs of acute infection at this time. Resume ASSISTANT PROFESSOR OF RELIGION prednisone/sirolimus/CellCept. #Type II Dm with Hyperglycemia ASSISTANT PROFESSOR OF RELIGION medications reviewed, takes Linagliptin as an outpatient She has been previously informed that she has poor glycemic control, insulin was prescribed by her PCP in [place], but patient did not start the medication. She also does not check her blood sugar levels at home. I counseled patient on the importance of adequate glycemic control including the risks of hyperglycemia At this time we will resume her ASSISTANT PROFESSOR OF RELIGION oral hypoglycemic agent. Patient expressed that she will follow-up with her PCP in [place] and decide whether or not she wants [...] encounter Discharge Instructions * Discharge Instructions* Hilario Wnog RN - 03/15/2025 10:04 AM CDT DISCHARGE [...] restricted arm mobility. Do not use a mine analyst or weed brad until cleared by Device [...] by your physician, deliver the form to [facility], or fax the form to ([phone]), prior to your appointment. Be sure to [...] Medtronic: . CALL CARDIAC DEVICE OFFICE - [phone] - IF: You have any signs of [...] 4:15 pm. CALL YOUR PHYSICIAN IF: (at [phone]) If you are having palpitations, dizziness, lightheadedness, or feeling faint, notify your physician. (IF THESE SYMPTOMS ARE SEVERE, CALL 131) You have increased or sudden onset of [...] smoking, call the Health Information Team at [phone] or [phone]. Follow-Up: Wound check appointment 3 weeks after [...] 3 weeks. Date: 04/08/25 Time: 2:00 PM. [facility]) Device Office, second floor [address] [place] [address] (Machine Operator Farmworker Parking Available) PLEASE NOTE: You will not [...] placed on intravenous pacing and transferred to [facility]. On arrival she was at a set rate of 50 with IV pacer through the right groin. Cardiology was consulted on her arrival and they interrogated noting that there were no P waves, patient in complete heart block. They increased pacing to 70 bpm. Per the patient's son, the patient had a cardiology checkup 6 months ago in [place] at which point they were told everything was okay. Cardiology plans for permanent pacemaker placement tomorrow. They request for stat echo and to keep pacer pads in place. Patient receives all of her medical care in [place]. Patient last took her medications on 03/13 [...] is functioning well Patient is visiting from [place]- family expressed that she will stay in town so that she can followup with pacer clinic in [address] Mann, Electrophysiology in 3 months time #History of renal transplant. Long-term care in [facility]. No signs of acute infection at this time. Resume ASSISTANT PROFESSOR OF RELIGION prednisone/sirolimus/CellCept. #Type II Dm with Hyperglycemia ASSISTANT PROFESSOR OF RELIGION medications reviewed, takes Linagliptin as an outpatient She has been previously informed that she has poor glycemic control, insulin was prescribed by her PCP in [place], but patient did not start the medication. She also does not check her blood sugar levels at home. I counseled patient on the importance of adequate glycemic control. At this time we will resume her ASSISTANT PROFESSOR OF RELIGION oral hypoglycemic agent. Patient expressed that she will follow-up with her PCP in [place] and decide whether or not she wants [...] results found for: SPECIMENSOU , PHBLOODPOC , TJQ5YUV , PO2POC , TFN5YAW , O9BAJEIL , QHE3OYA , BEPOC , LACTATE , PATIENTTEMP , PHTEMPCORR , [id number] , GH7GJZTYMD Lactic acid: No results found for: LACTATE [...] for my above recommendations. Frederic Ruff MD, [facility] Clinical Cardiac Electrophysiology [facility] 03/16/2025 BRIEF HISTORY: Iris Sandy is a 69 y.o. female who we are seeing for symptom for junctional rhythm & CHB. Intra-hospital course, she underwent uneventful PPM implant on . SUBJECTIVE Patient denies chest pain, palpitations, [...] MG 1.9 03/16/2025 Serum creatinine: 0.66 mg/dL 03/16/25 0314 Estimated creatinine clearance: 41.3 mL/min Lab Results [...] placed on intravenous pacing and transferred to [facility]. On arrival she was at a set rate of 50 with IV pacer through the right groin. Cardiology was consulted on her arrival and they interrogated noting that there were no P waves, patient in complete heart block. They increased pacing to 70 bpm. Per the patient's son, the patient had a cardiology checkup 6 months ago in [place] at which point they were told everything was okay. Cardiology plans for permanent pacemaker placement tomorrow. They request for stat echo and to keep pacer pads in place. Patient receives all of her medical care in [place]. Patient last took her medications on 03/13 [...] #History of renal transplant. Long-term care in [facility]. No signs of acute infection at this time. Resume ASSISTANT PROFESSOR OF RELIGION prednisone/sirolimus/CellCept. ICU timeline: Major active problem list: [...] MCV 83.2* 82.1* Coagulation: Recent Labs 03/14/25 153 PT 14.2 INR 1.0 ABG: No results found for: SPECIMENSOU , PHBLOODPOC , QDN3YNW , PO2POC , TYR3XQV , F4HYSCXO , CMK2BLA , BEPOC , LACTATE , PATIENTTEMP , PHTEMPCORR , KST9WCUNHY , KL2HPSDQRT Lactic acid: No results found for: LACTATE [...] mg 0.1-0.4 mg IV see admin instructions Lauar Stoner NP replacement reminder - Potassium 1 [...] Iris Sandy is a 69 y.o. female sami speaking female with a history of renal transplant presents from [facility] with temporary transvenous pacing wires. She [...] on any negative chronotropic agents. Labs from [facility] unremarkable. Severe [place], 20s with one week hx of syncope and weakness. No P wave. Junctional escape 20s as baseline. Temp pacer working. I discussed with her and her brother who speak Pakistani fluently this AM about implanting PPM. Risks/benefits/options [...] 69 y.o. / female : 1955 CSN: [id number] Today's date: 03/15/2025 Planned Procedure: PPM Indications: [...] placed on intravenous pacing and transferred to [facility]. On arrival she was at a set rate of 50 with IV pacer through the right groin. Cardiology was consulted on her arrival and they interrogated noting that there were no P waves, patient in complete heart block. They increased pacing to 70 bpm. Per the patient's son, the patient had a cardiology checkup 6 months ago in [place] at which point they were told everything was okay. Cardiology plans for permanent pacemaker placement tomorrow. They request for stat echo and to keep pacer pads in place. Patient receives all of her medical care in [place]. Patient last took her medications on 03/13 [...] results found for: SPECIMENSOU , PHBLOODPOC , NUQ4SHS , PO2POC , AWO7OZW , V5JBGALJ , RNA6UDT , BEPOC , LACTATE , PATIENTTEMP , PHTEMPCORR , JGL1VVBYMR , IT5PGMWBSB Radiology: Relevant results and imaging have been [...] the physical exam findings in the applicable resident/Fellow/LACING OPERATOR/PA's note; my notable physical exam findings include: [...] history of renal transplant. Long-term care in [facility]. No signs of acute infection at thistime. Resume ASSISTANT PROFESSOR OF RELIGION prednisone/sirolimus/CellCept. ? Family Communication: Updated patient's son [...] tomorrow Likely f/u with her MD in [place] If still in [place], f/u with pacer clinic in 3 weeks [...] Order(s): IP CONSULT TO ELECTROPHYSIOLOGY CARDIOLOGY CONSULTATION [place], [place] Requesting Physician: Janeth Moore DO Primary Tube Coremaker: NONE Consulting Tube Coremaker: Dr. Mann Date of Admission: 03/14/2025 Today's Date: 03/14/2025 Reason for Consultation: complete heart block/ junctional escape HPI Iris Sandy is a 69 y.o. female sami speaking female with a history of renal transplant presents from [facility] with temporary transvenous pacing wires. She [...] on any negative chronotropic agents. Labs from [facility] unremarkable. [facility] labs pending. No past medical history [...] and examined today, interviewed, examined at bedside [id number]. I performed the following physical exam. PHYSICAL [...] in this encounter ED Notes * Ryder Reed, RN - 03/14/2025 4:22 PM CDT Patient placed on external pads per Tube Coremaker request. Patient settings adjusted per wrapper and preserver. Pacer now set at 70, and 4 mA. * Ryder Reed RN - 03/14/2025 3:43 PM CDT Patient arrives via EMS as transfer from [facility]. Patient reports yesterday she began feeling tired [...] procedure. The patient is a transfer from [facility] where she was complaining of weakness and lightheadedness. She mistakenly entered through the wrong entrance and passed out in the lobby at [facility] before having a temporary pacemaker placed. [...] (36.9 ??C) (03/14/25 1530), Temp src: Oral (03/14/25 1530),SpO2: 94 % (03/14/25 1515), Height: 4' 11.84 (152 cm) (03/14/25 1530), Weight: 56 kg (123 lb 7.3 oz) (03/14/25 1530), BMI (Calculated): 24.24 (03/14/25 1530) No LMP recorded. Physical Exam Vitals and [...] 69-year-old female presenting as a transfer from [facility] with symptomatic bradycardia, syncope, and concern for [...] x-ray, EKG, and contact cardiology and the master electrician for admission. Lab interpretation: No leukocytosis, no anemia, no thrombocytopenia. No electrolyte abnormalities requiring correction, no KHLOE. She is hyperglycemic at 246 with normal anion gap and normal bicarb. Troponin is 10. BNP is 1004. Patient does not appear fluid overloaded. Chest x-ray shows no focal consolidation, effusion, pneumothorax. Pacemaker leads present. Discussed with the master electrician, Dr. De La Rosa, who will admit the patient. Discussed with cardiology whowill evaluate the patient for permanent pacemaker. ED Course as of 03/14/252017 [facility] Mar 14, 2025 0547 Paged (Supervisor Wood Crew) and EP [LB] [phone] Discussed patient care with cardiology consult line, they said to admit the patient and proceed from there. [LB] ED Course User Index [LB] Crystal Kenny, Toña Medical Decision Making Amount and/or Complexity of [...] may have been created by an artificial market analyst software. Effort has been done to assure accuracy of market analyst. Any obvious errors or omissions should be clarified with the author of the document.\ documented in this encounter Miscellaneous Notes * Care Plan - [place], Hilario Birch RN - 03/15/2025 3:13 PM CDT Cardiopulmonary Rehab completed S/P Pacemaker insertion Education with patient and used Architectural Modeler Mitch ID # [id number]. The patient was receptive to the education [...] - Name/Relation:antonio Dover Comments: Patient admitted from [facility] with weakness, falls, heart block AV complete. S/PPPM placement 03/15. Patients antonio Dover stated she is staying with us. She is here visiting from [place]. Prior to admission the patient is staying [...] Sandy Mobile Relation: Son Secondary Emergency Contact: [employer] Mobile Relation: Other Prescription coverage: no Preferred [...] to follow and assist asneeded. * Gen DAVIS ED Handoff - BRITNI ADVIS HANDOFF NOTE - 03/14/2025 5:35 PM CDT [...] Description 04/08/2025 2:00 PM CDT Nurse Only [facility] [address] [place] [phone] Vira Mann MD [address] [place] [phone] 07/30/2025 2:10 PM CLINICAL RESEARCH COORDINATOR Office Visit [facility] [address] [place] [phone] Vira Mann MD [address] [place] [phone] Jeevan Rodriguez CRNP [address], [address] [place] [phone] Pending Results Name Type Priority Associated Diagnoses [...] (ABNORMAL) POC GLUCOSE (03/16/2025 11:08 AM CDT) [facility] Signature GLUCOSE POC 293(H) 74 - 99 mg/dL 03/16/2025 11:08 AM CDT [facility] LABORATORY [facility] SPECIMEN SOURCE, GLUCOSE POC Capillary 03/16/2025 11:08 AM CDT [facility] Blood, whole 03/16/2025 11:0 8 AM CDT 03/16/2025 11:50 AM CDT Justyna Burnette MD POINT OF CARE TESTING Final Resu lt Performing Organization Address [facility]/ZIP Co de Phone Number [facility] CLIA # [id number] [address] [place] [address] * (ABNORMAL) POC GLUCOSE (03/16/2025 7:25 AM CDT) GLUCOSE POC 153(H) 74 - 99 mg/dL 03/16/2025 7:25 AM CDT [facility] SPECIMEN SOURCE, GLUCOSE POC Capillary 03/16/2025 7:25 AM CDT [facility] Blood, whole 03/16/2025 7:25 AM CDT 03/16/2025 7:46 AM CDT Justyna Burnette MD POINT OF CARE TESTING Final Resu lt Performing Organization Address [facility] Co de Phone Number [facility] CLIA # [id number] [address] [address] [place] [address] * MAGNESIUM LEVEL (03/16/2025 3:14 AM CDT) Pathologist [facility] MAGNESIUM 1.9 1.6 - 2.4 mg/dL 03/16/2025 4:20 AM CDT [facility] Blood Venipuncture / Unknown 03/16/2025 3:14 AM CDT 03/16/2025 3:46 AM CDT Justyna Burnette MD CHEMISTRY ORDERABLES Final Resul t Performing Organization Address [facility] Co de Phone Number [facility] CLIA # [id number] [address] [place] [address] * (ABNORMAL) COMPREHENSIVE METABOLIC PANEL (03/16/2025 3:14 AM [facility]) [facility] SODIUM 140 136 - 145 mmol/L 03/16/2025 4:20 AM [facility] POTASSIUM 3.8 3.5 - 5.1 mmol/L 03/16/2025 4:20 AM [facility] CHLORIDE 106 98 - 107 mmol/L 03/16/2025 4:20 AM [facility] CO2 23 22 - 29 mmol/L 03/16/2025 4:20 AM [facility] CALCIUM 8.6(L) 8.8 - 10.2 mg/dL 03/16/2025 4:20 AM [facility] BUN 17 8 - 23 mg/dL 03/16/2025 4:20 AM [facility] CREATININE 0.66 0.51 - 0.95 mg/dL 03/16/2025 4:20 AM [facility] GLUCOSE 125(H) 74 - 99 mg/dL 03/16/2025 4:20 AM [facility] TOTAL PROTEIN 6.0(L) 6.4 - 8.3 g/dL 03/16/2025 4:20 AM [facility] ALBUMIN 3.1(L) 3.5 - 5.2 g/dL 03/16/2025 4:20 AM [facility] BILIRUBIN TOTAL 0.5 0.0 - 1.0 mg/dL 03/16/2025 4:20 AM [facility] ALKALINE PHOSPHATASE 73 35 - 104 U/L 03/16/2025 4:20 AM [facility] AST 18 10 - 35 U/L 03/16/2025 4:20 AM [facility] ALT 29 <=35 U/L 03/16/2025 4:20 AM [facility] GFR >60 >=60 mL/min/1.7 3 sq meter 03/16/2025 4:20 AM [facility] Comment:eGFR calculated with 2020 CKD-EPI equation. Vegetarian diet, extremely high or low muscle mass, and may affect results. Cystatin C with Glomerular Filtration Rate is a suitable alternative for these patients. ANION GAP 11 9 - 20 mmol/L 03/16/2025 4:20 AM T [facility] Blood Venipuncture / Unknown 03/16/2025 3:14 AM CDT 03/16/2025 3:46 AM CDT Laura Stoner NP CHEMISTRY ORDERABLES Final Resul t [facility] CLIA # [id number] [address] [place] [address] * (ABNORMAL) CBC WITH DIFFERENTIAL (03/16/2025 3:14 AM CDT) WBC 7.3 4.8 - 10.8 K/uL 03/16/2025 3:49 AM T [facility] RBC 5.32 4.20 - 5.40 M/uL 03/16/2025 3:49 AM [facility] HEMOGLOBIN 13.9 12.0 - 16.0 g/dL 03/16/2025 3:49 AM [facility] HEMATOCRIT 43.8 36.0 - 46.0 % 03/16/2025 3:49 AM [facility] MCV 82.3(L) 84.0 - 103.0 fL 03/16/2025 3:49 AM T [facility] MCH 26.1(L) 27.0 - 34.0 pg 03/16/2025 3:49 AM T [facility] MCHC 31.7 30.0 - 35.0 g/dL 03/16/2025 3:49 AM T [facility] PLATELETS 150 140 - 440 K/uL 03/16/2025 3:49 AM [facility] MPV 10.6 8.9 - 12.8 fL 03/16/2025 3:49 AM [facility] R[facility] 16.2(H) 11.0 - 14.5 % 03/16/2025 3:49 AM T [facility] RDW-STDEV 48.7 37.0 - 54.0 fL 03/16/2025 3:49 AM T [facility] NEUTROPHILS 49 42 - 75 % 03/16/2025 3:49 AM T [facility] LYMPHOCYTES 38 24 - 44 % 03/16/2025 3:49 AM T [facility] MONOCYTES 11(H) 2 - 10 % 03/16/2025 3:49 AM T [facility] EOSINOPHILS 1 0 - 7 % 03/16/2025 3:49 AM [facility] BASOPHILS 0 0 - 1 % 03/16/2025 3:49 AM [facility] IMMATURE GRANULOCYTES 0 0 - 2 % 03/16/2025 3:49 AM T [facility] NEUTROPHIL ABSOLUTE 3.57 2.00 - 8.00 K/uL 03/16/2025 3:49 AM [facility] LYMPHOCYTE ABSOLUTE 2.77 1.20 - 4.00 K/uL 03/16/2025 3:49 AM [facility] MONOCYTE ABSOLUTE 0.79(H) 0.10 - 0.60 K/uL 03/16/2025 3:49 AM [facility] EOSINOPHIL ABSOLUTE 0.08 0.00 - 0.70 K/uL 03/16/2025 3:49 AM [facility] BASOPHILS ABSOLUTE 0.02 0.00 - 0.20 K/uL 03/16/2025 3:49 AM [facility] IMMATURE GRANULOCYTES ABSOLUTE 0.03 0.00 - 0.10 K/uL 03/16/2025 3:49 AM [facility] SMEAR REVIEWED: NA - Not Applicable 03/16/2025 3:49 AM [facility] Blood Venipuncture / Unknown 03/16/2025 3:14 AM CDT 03/16/2025 3:44 AM CDT Laura Stoner LACING OPERATOR HEMATOLOGY ORDERABLES Final Resu lt Performing Organization Address [facility]/ZIP Co de Phone Number [facility] CLIA # [id number] [address] [place] [address] * (ABNORMAL) POC GLUCOSE (03/16/2025 3:12 AM CDT) GLUCOSE POC 147(H) 74 - 99 mg/dL 03/16/2025 3:12 AM CDT [facility] SPECIMEN SOURCE, GLUCOSE POC Venous 03/16/2025 3:12 AM CDT [facility] Blood, whole 03/16/2025 3:12 AM CDT 03/16/2025 3:46 AM CDT Justyna Burnette MD POINT OF CARE TESTING Final Resu lt Performing Organization Address [facility] Co de Phone Number [facility] CLIA # [id number] [address] [place] [address] * (ABNORMAL) POC GLUCOSE (03/15/2025 11:11 PM CDT) GLUCOSE POC 247(H) 74 - 99 mg/dL 03/15/2025 11:11 PM CDT [facility] SPECIMEN SOURCE, GLUCOSE POC Capillary 03/15/2025 11:11 PM CDT [facility] Blood, whole 03/15/2025 11:1 1 PM CDT 03/16/2025 12:11 AM CDT Justyna Burnette MD POINT OF CARE TESTING Final Resu lt Performing Organization Address [facility]/ZIP Co de Phone Number [facility] CLIA # [id number] [address] [place] [address] * (ABNORMAL) POC GLUCOSE (03/15/2025 9:11 PM CDT) GLUCOSE POC 227(H) 74 - 99 mg/dL 03/15/2025 9:11 PM CDT [facility]ATORY [facility] SPECIMEN SOURCE, GLUCOSE POC Capillary 03/15/2025 9:11 PM CDT [facility] Blood, whole 03/15/2025 9:11 PM CDT 03/15/2025 10:49 PM CDT us Justyna Burnette MD POINT OF CARE TESTING Final Resu lt [facility] CLIA # [id number] [address] [facility] [place] [address] * XR CHEST PA AND LATERAL 2 VW (03/15/2025 7:56 PM CDT) Anatomical Region Laterality Modality Chest Computed Radiogr aphy 03/15/2025 7:56 PM CDT Impressions 03/16/2025 1:38 AM CDT IMPRESSION: No acute cardiopulmonary abnormality identified. MACRO: None Narrative 03/16/2025 1:38 AM CDT EXAMINATION: XR CHEST PA AND LATERAL 2 VW CLINICAL HISTORY: ASSOCIATED DIAGNOSIS: Post-Operative ORDERING PROVIDER: VIRA MANN TECHNREKHA NOTE: COMPARISON: Chest radiograph 03/15/2025 FINDINGS: Lines, [...] ASSOCIATED DIAGNOSIS: Post-Operative ORDERING PROVIDER: VIRA MANN TECHNREKHA NOTE: COMPARISON: Chest radiograph 03/15/2025 FINDINGS: Lines, [...] (ABNORMAL) POC GLUCOSE (03/15/2025 4:47 PM CDT) Pathologist [facility] GLUCOSE POC 345(H) 74 - 99 mg/dL 03/15/2025 4:47 PM CDT [facility] SPECIMEN SOURCE, GLUCOSE POC Capillary 03/15/2025 4:47 PM CDT [facility] COMMENT, GLU POC Notified Caregiver 03/15/2025 4:47 PM CDT [facility] Blood, whole 03/15/2025 4:47 PM CDT 03/15/2025 4:59 PM CDT us Justyna Burnette MD POINT OF CARE TESTING Final Resu lt [facility] CLIA # [id number] [address] [address] * EKG 12-LEAD (03/15/2025 1:27 PM CDT) 03/15/2025 1:27 PM CDT Narrative INTERFACE SYSTEM - 03/17/2025 12:53 PM CDT [address] [address] [address] Test Date: 2025-03-15 Pat Name: IRIS SANDY Department: 12 Room: [address] [place] [address] Gender: Female Senior Sas Programmer: [id number] : 1955 Requested By: Order Number: [id number] Reading MD: Vira Mann Measurements Intervals Milton Rate: 60 P: -5 ID: 224 QRS: -7 QRSD: 114 T: 77 QT: 444 QTc: 444 Interpretive Statements Atrial-paced rhythm with prolonged AV conduction Incomplete left bundle branch block Minimal voltage criteria for LVH, may be normal variant ( Clearfield product ) Nonspecific T wave abnormality Abnormal ECG Electronically Signed On 03-17-2025 12:53:22 CDT by Vira Mann Procedure Note Provider, Historical - 03/17/[address] [address] Test Date: 2025-03-15 Pat Name: IRIS SANDY Department: 12 Room: [address] [place] [address] Gender: Female Senior Sas Programmer: [id number] : 1955 Requested By: Order Number: [id number] Reading MD: Vira Mann Measurements Intervals Milton Rate: 60 P: -5 ID: 224 QRS: -7 QRSD: 114 T: 77 QT: 444 QTc: 444 Interpretive Statements Atrial-paced rhythm with prolonged AV conduction Incomplete left bundle branch block Minimal voltage criteria for LVH, may be normal variant ( Reddy product) Nonspecific T wave abnormality Abnormal ECG Electronically Signed On 03-17-2025 12:53:22 CDT by Vira Mann us Justyna Burnette MD ECG ORDERABLES Final Result INTERFACE SYSTEM Refer to clinic/hospital department * EKG 12-LEAD MAGNET (03/15/2025 1:26 PM CDT) 03/15/2025 1:26 PM CDT Narrative INTERFACE SYSTEM - 03/17/2025 12:53 PM CDT [address] [address] Test Date: 2025-03-15 Pat Name: IRIS SANDY Department: 12 Room: CARDIAC CA Cardiac Ca Gender: Female Senior Sas Programmer: [id number] : 1955 Requested By: Order Number: [id number] Reading MD: Vira Mann Measurements Intervals Milton Rate: 84 P: 56 ID: 160 QRS: -15 QRSD: 110 T: 93 QT: 410 QTc: 484 Interpretive Statements Atrial-paced rhythm with frequent AV dual-paced complexes Incomplete left bundle branch block Minimal voltage criteria for LVH, may be normal variant ( Clearfield product ) ST & T wave abnormality, consider lateral ischemia QTcB >= 480 msec Abnormal ECG Electronically Signed On 03-17-2025 12:53:12 CDT by Vira Mann Procedure Note Provider, Historical - 03/17/2025 [facility] [address] [place] [address] Test Date: 2025-03-15 Pat Name: IRIS SANDY Department: 12 Room: CARDIAC CA Cardiac Ca Gender: Female Senior Sas Programmer: [id number] : 1955 Requested By: Order Number: [id number] Reading MD: Vira Mann Measurements Intervals Milton Rate: 84 P: 56 ID: 160 QRS: -15 QRSD: 110 T: 93 [...] PACEMAKER INSERTION (03/15/2025 12:36 PM CDT) Narrative [facility] CARDIOLOGY [facility] - 03/15/2025 12:46 PM CDT DUAL [...] The LEAD PACING CAPSURE FIX NOVUS 45CM [id number] - CSC RA lead was successfully implanted [...] ORDERABLES Final Resul t Performing Organization Address City/[facility]/ZIP Co de Phone Number [facility] CLIA [id number] [address] [facility] [address] [place] [phone], * (ABNORMAL) POC GLUCOSE (03/15/2025 11:01 AM CDT) GLUCOSE POC 131(H) 74 - 99 mg/dL 03/15/2025 11:01 AM CDT [facility] LABORATORY [facility] SPECIMEN SOURCE, GLUCOSE POC Capillary 03/15/2025 11:01 AM CDT [facility] Blood, whole 03/15/2025 11:0 1 AM CDT 03/15/2025 11:09 AM CDT Justyna Burnette MD POINT OF CARE TESTING Final Resu lt Performing Organization Address [facility] Co de Phone Number [facility] CLIA # [id number] [address] [facility].[address] [place] [address] * ECHO COMPLETE - CONTRAST AND STRAIN IF INDICATED (03/15/2025 8:15 AM CDT) EJECTION FRACTION 50 INTERFACE SYSTEM 03/15/2025 7:13 AM CDT Narrative INTERFACE SYSTEM - 03/15/2025 8:[address] [facility] Cardiovascular Services Echocardiography Laboratory [address] [place] [address] Transthoracic Echocardiography Patient: Iris Sandy Study ID: ECHO COMPLETE - Gender: F : 1955 Age: 69 Room: [facility] Study Date: 03/15/2025 Pt Status: Inpatient Study Time: 07:13:44 AM [facility] #: [id number] Ordering:Alyson Michelle Business Process Representative: Chey Saravia Indications and History: Av heart [...] (H) brittany values outside specified reference range. [facility] Echo Labs are accredited with the Interstemple university health systemetal Accreditation Commission - Echocardiography. Prepared and Electronically Authenticated Abdullahi Montero MD Confirmed 03/15/2025 08:20 Procedure Note Abdullahi Montero MD - 03/15/2025 [facility] Cardiovascular Services Echocardiography Laboratory [address] [place] [address] Transthoracic Echocardiography Patient: Iris Sandy Study ID: ECHOCOMPLETReyna - Gender: Aleks : 1955 Age: 69 Room: [facility] Study Date: 03/15/2025 Pt Status: Inpatient Study Time: 07:13:44 AM CSN #: [id number] Ordering:Alyson Michelle Business Process Representative: Chey Saravia Indications and History: Av heart [...] (H) brittany values outside specified reference range. [facility] Echo Labs are accredited with theIntersocietal Accreditation Commission - Echocardiography. Prepared and Electronically Authenticated Abdullahi Montero MD Confirmed 03/15/2025 08:20 us Alyson Michelle [facility] US ORDERABLES Final Resu lt INTERFACE SYSTEM Refer to clinic/hospital department * (ABNORMAL) POC GLUCOSE (03/15/2025 6:54 AM CDT) GLUCOSE POC 206(H) 74 - 99 mg/dL 03/15/2025 6:54 AM CDT [facility] SPECIMEN SOURCE, GLUCOSE POC Capillary 03/15/2025 6:54 AM CDT [facility] Blood, whole 03/15/2025 6:54 AM CDT 03/15/2025 7:02 AM CDT Lesly De La Rosa MD POINT OF CARE TESTING Final Resu lt [facility] HIMANSHU # [id number] [address] [facility] [facility] [place] [address] * XR CHEST PA OR AP 1 [...] Imaged skeleton without gross acute pathology. Laura Stoner NP DIAGNOSTIC IMAGING ORDERABLES Fi nal Result * (ABNORMAL) COMPREHENSIVE METABOLIC PANEL (03/15/2025 4:10 AM CDT) SODIUM 134(L) 136 - 145 mmol/L 03/15/2025 5:27 AM CDT [facility] POTASSIUM 3.9 3.5 - 5.1 mmol/L 03/15/2025 5:27 AM [facility] CHLORIDE 101 98 - 107 mmol/L 03/15/2025 5:27 AM [facility] CO2 24 22 - 29 mmol/L 03/15/2025 5:27 AM [facility] CALCIUM 8.7(L) 8.8 - 10.2 mg/dL 03/15/2025 5:27 AM [facility] BUN 14 8 - 23 mg/dL 03/15/2025 5:27 AM [facility] CREATININE 0.59 0.51 - 0.95 mg/dL 03/15/2025 5:27 AM [facility] GLUCOSE 176(H) 74 - 99 mg/dL 03/15/2025 5:27 AM [facility] TOTAL PROTEIN 6.0(L) 6.4 - 8.3 g/dL 03/15/2025 5:27 AM [facility] ALBUMIN 3.2(L) 3.5 - 5.2 g/dL 03/15/2025 5:27 AM [facility] BILIRUBIN TOTAL 0.6 0.0 - 1.0 mg/dL 03/15/2025 5:27 AM [facility] ALKALINE PHOSPHATASE 72 35 - 104 U/L 03/15/2025 5:27 AM [facility] AST 26 10 - 35 U/L 03/15/2025 5:27 AM [facility] ALT 39(H) <=35 U/L 03/15/2025 5:27 AM [facility] GFR >60 >=60 mL/min/1.7 3 sq meter 03/15/2025 5:27 AM [facility] Comment:eGFR calculated with 2020 CKD-EPI equation. Vegetarian diet, extremely high or low muscle mass, and may affect results. Cystatin C with Glomerular Filtration Rate is a suitable alternative for these patients. ANION GAP 9 9 - 20 mmol/L 03/15/2025 5:27 AM [facility] Blood Venipuncture / Unknown 03/15/2025 4:10 AM CDT 03/15/2025 4:25 AM CDT Laura Stoner NP CHEMISTRY ORDERABLES Final Resul t [facility] CLIA # [id number] [address] [place] [address] [place] [address] * (ABNORMAL) CBC WITH DIFFERENTIAL (03/15/2025 4:10 AM CDT) [facility] WBC 8.2 4.8 - 10.8 K/uL 03/15/2025 4:31 AM CDT [facility] RBC 5.07 4.20 - 5.40 M/uL 03/15/2025 4:31 AM T [facility] HEMOGLOBIN 13.5 12.0 - 16.0 g/dL 03/15/2025 4:31 AM CDT [facility] HEMATOCRIT 41.6 36.0 - 46.0 % 03/15/2025 4:31 AM T [facility] MCV 82.1(L) 84.0 - 103.0 fL 03/15/2025 4:31 AM T [facility] MCH 26.6(L) 27.0 - 34.0 pg 03/15/2025 4:31 AM T [facility] MCHC 32.5 30.0 - 35.0 g/dL 03/15/2025 4:31 AM CDT [facility] PLATELETS 168 140 - 440 K/uL 03/15/2025 4:31 AM T [facility] MPV 10.4 8.9 - 12.8 fL 03/15/2025 4:31 AM T [facility] RDW 16.3(H) 11.0 - 14.5 % 03/15/2025 4:31 AM T [facility] RDW-STDEV 48.5 37.0 - 54.0 fL 03/15/2025 4:31 AM CDT [facility] NEUTROPHILS 68 42 - 75 % 03/15/2025 4:31 AM T [facility] LYMPHOCYTES 24 24 - 44 % 03/15/2025 4:31 AM CDT [facility] MONOCYTES 8 2 - 10 % 03/15/2025 4:31 AM CDT [facility] EOSINOPHILS 0 0 - 7 % 03/15/2025 4:31 AM CDT [facility] BASOPHILS 0 0 - 1 % 03/15/2025 4:31 AM CDT [facility] IMMATURE GRANULOCYTES 0 0 - 2 % 03/15/2025 4:31 AM T [facility] NEUTROPHIL ABSOLUTE 5.55 2.00 - 8.00 K/uL 03/15/2025 4:31 AM T [facility] LYMPHOCYTE ABSOLUTE 1.94 1.20 - 4.00 K/uL 03/15/2025 4:31 AM T [facility] MONOCYTE ABSOLUTE 0.65(H) 0.10 - 0.60 K/uL 03/15/2025 4:31 AM T [facility] EOSINOPHIL ABSOLUTE 0.02 0.00 - 0.70 K/uL 03/15/2025 4:31 AM [facility] BASOPHILS ABSOLUTE 0.01 0.00 - 0.20 K/uL 03/15/2025 4:31 AM [facility] IMMATURE GRANULOCYTES ABSOLUTE 0.03 0.00 - 0.10 K/uL 03/15/2025 4:31 AM T [facility] SMEAR REVIEWED: NA - Not Applicable 03/15/2025 4:31 AM [facility] Blood Venipuncture / Unknown 03/15/2025 4:10 AM CDT 03/15/2025 4:24 AM CDT us Laura Stoner NP HEMATOLOGY ORDERABLES Final Resu lt [facility] CLIA # [id number] [address] [address] * (ABNORMAL) POC GLUCOSE (03/15/2025 4:09 AM CDT) GLUCOSE POC 184(H) 74 - 99 mg/dL 03/15/2025 4:09 AM CDT [facility] SPECIMEN SOURCE, GLUCOSE POC Venous 03/15/2025 4:09 AM CDT [facility] Blood, whole 03/15/2025 4:09 AM CDT 03/15/2025 4:17 AM CDT Lesly De La Rosa MD POINT OF CARE TESTING Final Resu lt Performing Organization Address [facility]/ZIP Co de Phone Number [facility] CLIA # [id number] [facility] access hospital[address] [address] * (ABNORMAL) POC GLUCOSE (03/14/2025 11:25 PM CDT) GLUCOSE POC 283(H) 74 - 99 mg/dL 03/14/2025 11:25 PM CDT [facility] SPECIMEN SOURCE, GLUCOSE POC Capillary 03/14/2025 11:25 PM CDT [facility] Blood, whole 03/14/2025 11:2 5 PM CDT 03/14/2025 11:39 PM CDT Lesly De La Rosa MD POINT OF CARE TESTING Final Resu lt [facility] CLIA # [id number] [address] [place] [address] * TROPONIN 6 HR, 5TH GEN (03/14/2025 9:02 PM CDT) TROPONIN T, 6 HR 5TH GEN 8 <11 ng/L 03/14/2025 9:45 PM CDT [facility] DELTA 6HR TROPONIN T -2 See Interp. 03/14/2025 9:45 PM CDT [facility] Blood Venipuncture / Unknown 03/14/2025 9:02 PM CDT 03/14/2025 9:09 PM CDT Narrative [facility] - 03/14/2025 9:45 PM CDT Troponin Detectable but normal range. Delta indeterminate. Janeth Moore DO CHEMISTRY ORDERABLES Final Resul t Performing Organization Address [facility] Co de Phone Number [facility] CLIA # [id number] [address] [address] [place], [place] [id number] * (ABNORMAL) POC GLUCOSE (03/14/2025 8:02 PM CDT) [facility] GLUCOSE POC 176(H) 74 - 99 mg/dL 03/14/2025 8:02 PM CDT [facility] SPECIMEN SOURCE, GLUCOSE POC Capillary 03/14/2025 8:02 PM CDT [facility] Blood, whole 03/14/2025 8:02 PM CDT 03/14/2025 8:12 PM CDT Lesly De La Rosa MD POINT OF CARE TESTING Final Resu lt Performing Organization Address [facility]/ZIP Co de Phone Number [facility] CLIA # [id number] [address] [phone] * (ABNORMAL) CBC WITH DIFFERENTIAL (03/14/2025 5:11 PM CDT) [facility] WBC 8.0 4.8 - 10.8 K/uL 03/14/2025 5:25 PM CDT [facility] RBC 4.95 4.20 - 5.40 M/uL 03/14/2025 5:25 PM [facility] HEMOGLOBIN 12.9 12.0 - 16.0 g/dL 03/14/2025 5:25 PM [facility] HEMATOCRIT 41.2 36.0 - 46.0 % 03/14/2025 5:25 PM [facility] MCV 83.2(L) 84.0 - 103.0 fL 03/14/2025 5:25 PM [facility] MCH 26.1(L) 27.0 - 34.0 pg 03/14/2025 5:25 [facility] MCHC 31.3 30.0 - 35.0 g/dL 03/14/2025 5:25 PM [facility] PLATELETS 168 140 - 440 K/uL 03/14/2025 5:25 PM [facility] MPV 10.6 8.9 - 12.8 fL 03/14/2025 5:25 PM [facility] RDW 16.0(H) 11.0 - 14.5 % 03/14/2025 5:25 PM [facility] RDW-STDEV 48.3 37.0 - 54.0 fL 03/14/2025 5:25 PM [facility] NEUTROPHILS 62 42 - 75 % 03/14/2025 5:25 PM [facility] LYMPHOCYTES 28 24 - 44 % 03/14/2025 5:25 PM [facility] MONOCYTES 9 2 - 10 % 03/14/2025 5:25 PM [facility] EOSINOPHILS 0 0 - 7 % 03/14/2025 5:25 PM [facility] BASOPHILS 0 0 - 1 % 03/14/2025 5:25 PM [facility] IMMATURE GRANULOCYTES 0 0 - 2 % 03/14/2025 5:25 PM [facility] NEUTROPHIL ABSOLUTE 5.01 2.00 - 8.00 K/uL 03/14/2025 5:25 PM [facility] LYMPHOCYTE ABSOLUTE 2.27 1.20 - 4.00 K/uL 03/14/2025 5:25 PM CDT [facility] MONOCYTE ABSOLUTE 0.70(H) 0.10 - 0.60 K/uL 03/14/2025 5:25 PM CDT [facility] EOSINOPHIL ABSOLUTE 0.03 0.00 - 0.70 K/uL 03/14/2025 5:25 PM CDT [facility] BASOPHILS ABSOLUTE 0.01 0.00 - 0.20 K/uL 03/14/2025 5:25 PM CDT [facility] IMMATURE GRANULOCYTES ABSOLUTE 0.02 0.00 - 0.10 K/uL 03/14/2025 5:25 PM CDT [facility] SMEAR REVIEWED: NA - Not Applicable 03/14/2025 5:25 PM CDT [facility] Blood Venipuncture / Unknown 03/14/2025 5:11 PM CDT 03/14/2025 5:18 PM CDT us Janeth Moore DO HEMATOLOGY ORDERABLES Final Resu lt [facility] CLIA # [id number] [address] [place] [address] * EKG 12-LEAD (03/14/2025 5:00 PM CDT) 03/14/2025 5:00 PM CDT Narrative INTERFACE SYSTEM - 03/14/2025 5:[address] [address] Test Date: 2025-03-14 Pat Name: IRIS SANDY Department: 11 Room: H H Gender: Female Senior Sas Programmer: [id number] : 1955 Requested By: Order Number: [id number] Agustin MD: Ollie Padron Measurements Intervals Milton Rate: 76 P: 0 ID: 0 QRS: 0 QRSD: 106 T: 85 QT: 398 QTc: 447 Interpretive Statements Sinus rhythm with frequent ventricular-paced complexes Incomplete left bundle branch block Nonspecific ST and T wave abnormality Abnormal ECG Electronically Signed On 03-14-2025 17:20:32 CDT by Ollie Padron Procedure Note Ollie Padron MD - 03/14/2025 [facility] [address] [place] [address] Test Date: 2025-03-14 Pat Name: IRIS SANDY Department: 11 Room: [facility] Gender: Female Senior Sas Programmer: [id number] : 1955 Requested By: Order Number: [id number] Reading MD: Ollie Padron Measurements Intervals Milton Rate: 76 P: 0 ID: 0 QRS: 0 QRSD: 106 T: 85 QT: 398 QTc: 447 Interpretive Statements Sinus rhythm with frequent ventricular-paced complexes Incomplete left bundle branch block Nonspecific ST and T wave abnormality Abnormal ECG Electronically Signed On 03-14-2025 17:20:32 CDT by Ollie Padron us Alyson Michelle RENDERER ECG ORDERABLES Final Resu lt INTERFACE SYSTEM [...] Pacemaker lead extends into the right ventricle. Janeth Moore DO DIAGNOSTIC IMAGING ORDERABLES Fi nal Result * (ABNORMAL) BRAIN NATRIURETIC PEPTIDE, BNP OR PROBNP (03/14/2025 3:36 PM CDT) Pathologist [facility] PROBNP, N TERMINAL 1,004(H) 0 - 125 pg/mL 03/14/2025 4:49 PM CDT [facility] Comment: INTERPRETIVE COMMENT based on diagnosis: Diagnostic [...] Moore DO CHEMISTRY ORDERABLES Final Resul t [facility] # [id number] [address] [place] [address] [place] [address] * MAGNESIUM LEVEL (03/14/2025 3:36 PM CDT) [facility] MAGNESIUM 2.0 1.6 - 2.4 mg/dL 03/14/2025 4:49 PM CDT [facility] Blood Venipuncture / Unknown 03/14/2025 3:36 PM CDT 03/14/2025 3:51 PM CDT Janeth Moore DO CHEMISTRY ORDERABLES Final Resul t Performing Organization Address [facility] Co de Phone Number [facility] CLIA # [id number] [facility] [address] [address] [place] [address] * TROPONIN BASELINE, 5TH GEN (03/14/2025 3:36 PM CDT) Pathologist [facility] TROPONIN T, BASELINE 5TH GEN 10 <=10 ng/L 03/14/2025 5:05 PM CDT [facility] Blood Venipuncture / Unknown 03/14/2025 3:36 PM CDT 03/14/2025 3:51 PM CDT Narrative [facility] LABORATORY [facility] - 03/14/2025 5:05 PM CDT Troponin Detectable but normal range. Janeth Moore DO CHEMISTRY ORDERABLES Final Resul t Performing Organization Address [facility] de Phone Number [facility] CLIA # [id number] [address] [place] [address] * (ABNORMAL) COMPREHENSIVE METABOLIC PANEL (03/14/2025 3:36 PM CDT) Pathologist [facility] SODIUM 140 136 - 145 mmol/L 03/14/2025 4:49 PM CDT [facility] POTASSIUM 4.7 3.5 - 5.1 mmol/L 03/14/2025 4:49 PM CDT [facility] CHLORIDE 105 98 - 107 mmol/L 03/14/2025 4:49 PM CDT [facility] CO2 23 22 - 29 mmol/L 03/14/2025 4:49 PM [facility] CALCIUM 9.4 8.8 - 10.2 mg/dL 03/14/2025 4:49 PM [facility] BUN 22 8 - 23 mg/dL 03/14/2025 4:49 PM [facility] CREATININE 0.68 0.51 - 0.95 mg/dL 03/14/2025 4:49 PM [facility] GLUCOSE 246(H) 74 - 99 mg/dL 03/14/2025 4:49 PM [facility] TOTAL PROTEIN 6.2(L) 6.4 - 8.3 g/dL 03/14/2025 4:49 PM [facility] ALBUMIN 3.4(L) 3.5 - 5.2 g/dL 03/14/2025 4:49 PM [facility] BILIRUBIN TOTAL 0.4 0.0 - 1.0 mg/dL 03/14/2025 4:49 PM [facility] ALKALINE PHOSPHATASE 72 35 - 104 U/L 03/14/2025 4:49 PM [facility] AST 38(H) 10 - 35 U/L 03/14/2025 4:49 PM [facility] ALT 49(H) <=35 U/L 03/14/2025 4:49 PM [facility] GFR >60 >=60 mL/min/1.7 3 sq meter 03/14/2025 4:49 PM [facility] Comment:eGFR calculated with 2020 CKD-EPI equation. Vegetarian diet, extremely high or low muscle mass, and may affect results. Cystatin C with Glomerular Filtration Rate is a suitable alternative for these patients. ANION GAP 12 9 - 20 mmol/L 03/14/2025 4:49 PM [facility] Blood Venipuncture / Unknown 03/14/2025 3:36 PM CDT 03/14/2025 3:51 PM CDT Janeth Moore DO CHEMISTRY ORDERABLES Final Resul t [facility] CLIA # [id number] [address] [address] [place], [place] [id number] * PROTIME-INR (03/14/2025 3:36 PM CDT) PROTIME 14.2 12.7 - 14.9 Seconds 03/14/2025 4:08 PM CDT [facility] INR 1.0 0.8 - 1.2 03/14/2025 4:08 PM CDT [facility] Blood Venipuncture / Unknown 03/14/2025 3:36 PM CDT 03/14/2025 3:50 PM CDT Narrative [facility] - 03/14/2025 4:08 PM CDT Expected Values for INR: DVT/PE Goal INR 2.5; range 2.0 - 3.0 Valve Replacement Tissue Goal INR 2.5; range 2.0 - 3.0 Valve Replacement Mechanical Goal INR 3.0; range 2.5 - 3.5 POST-CT Goal INR 2.5; range 2.0 - 3.0 or Goal INR 3.0; range 2.5 - 3.5 Atrial Fibrillation Goal INR 2.5; range 2.0 - 3.0 Ischemic Stroke Goal INR 2.5; range 2.0 - 3.0 us Janeth Moore DO HEMATOLOGY ORDERABLES Final Resu lt Performing Organization Address [facility]/ZIP Co de Phone Number [facility] CLIA # [id number] [address] [id number] * EKG 12-LEAD (03/14/2025 3:24 PM CDT) 03/14/2025 3:24 PM CDT Narrative INTERFACE SYSTEM - 03/14/2025 4:01 PM CDT [address] [address] Test Date: 2025-03-14 Pat Name: IRIS SANDY Department: 11 Room: H H Gender: F Senior Sas Programmer: [id number] : 1955 Requested By: Order Number: [id number] Reading MD: Ollie Padron Measurements Intervals Milton Rate: 58 P: 0 ID: 0 QRS: 16 QRSD: 112 T: 93 QT: 432 QTc: 424 Interpretive Statements Ventricular pacemaker with [place] complexes Minimal voltage criteria for LVH, may be normal variant ( Reddy product ) Abnormal QRS-T angle, consider primary T wave abnormality Abnormal ECG Electronically Signed On 03-14-2025 16:01:20 CDT by Ollie Padron Procedure Note Ollie Padron MD - 03/14/[address] [address] Test Date: 2025-03-14 Pat Name: IRIS SANDY Department: 11 Room: H H Gender: F Senior Sas Programmer: [id number] : 1955 Requested By: Order Number: [id number] Reading MD: Ollie Padron Measurements Intervals Milton Rate: 58 P: 0 ID: 0 QRS: 16 QRSD: 112 T: 93 QT: 432 QTc: 424 Interpretive Statements Ventricular pacemaker with [place] complexes Minimal voltage criteria for LVH, may be normal variant ( Reddy product) Abnormal QRS-T angle, consider primary T wave abnormality Abnormal ECG Electronically Signed On 03-14-2025 16:01:20 CDT by Ollie Padron Janeth Moore DO ECG ORDERABLES Final Result [...] Given 03/15/2025 9:08 PM CDT 650 mg ceFAZolin (ANCEF,KEFZOL) 2,000 mg in sodium chloride 0.9 % 50 mL IVPB CONTINUOUS PRN, Starting on Tue03/15/25 at 1201, Until Tue03/15/25 at 1246, Routine, Intra-Procedure (Invasive Cardiology) New Bag 03/15/2025 12:01 PM CDT 2,000 mg 20 mL/hr dextrose 5 % - sodium chloride 0.9 [...] at 1031, Until 03/16/25 at 1631, Routine fentaNYL PF (SUBLIMAZE) 50 mcg/mL injection ONE TIME PRN, Starting on Tue03/15/25 at 1204, Until Tue03/15/25 at 1246, Routine, Intra-Procedure (Invasive Cardiology) Given 03/15/2025 12:04 PM CDT 50 mcg fentaNYL PF (SUBLIMAZE) 50 mcg/mL injection ONE TIME PRN, Starting on Tue03/15/25 at 1210, Until Tue03/15/25 at 1246, Routine, Intra-Procedure (Invasive Cardiology) Given 03/15/2025 12:10 PM CDT 25 mcg glucagon HCL 1 mg/mL injection 1 mg 1 mg, IM, SEE ADMIN INSTRUCTIONS, Starting on Tue03/15/25 at 1031, Until Tue03/16/25 at 1631, Routine HYDROcodone-acetaminop hen (NORCO) 5-325 mg per tablet 1 Tablet 1 Tablet, Oral, EVERY 4 HOURS PRN, Starting on Tue03/15/25 at 1303, Until Tue03/16/25 at 1631, Pain (See admin instructions), Routine, [...] subCUT, EVERY 4 HOURS, First dose on Tue03/14/25 at 2000, Until Discontinued, Routine Given 03/16/2025 11:41 AM CDT 6 Units Abdomen, Left Lower Quadrant Given 03/15/2025 11:12 PM CDT 4 Units A bdomen, Left Lower Quadrant Given 03/15/2025 9:12 PM CDT 4 Units Ab domen, Left Lower Quadrant iopamidoL (ISOVUE-300) 61% injection (drawn from multi-use bulk pack) ONE TIME PRN, Starting on Tue03/15/25 at 1214, Until Tue03/15/25 at 1246, Routine, Intra-Procedure (Invasive Cardiology) Given 03/15/2025 12:14 PM CDT 10 mL lidocaine 1 % (XYLOCAINE) injection ONE TIME PRN, Starting on Tue03/15/25 at 1209, Until Tue03/15/25 at 1246, Routine, Intra-Procedure (Invasive Cardiology) Given 03/15/2025 12:09 PM CDT 20 mL Chest, Left midazolam (VERSED) injection ONE TIME PRN, Starting on Tue03/15/25 at 1204, Until Tue03/15/25 at 1246, Routine, Intra-Procedure (Invasive Cardiology) Given 03/15/2025 12:04 PM CDT 2 mg mycophenolate mofetil (CELLCEPT) tablet 500 mg 500 [...] mg, IV, SEE ADMIN INSTRUCTIONS, Starting on Tue03/14/25 at 1846, Until 03/16/25 at 1631, Routine predniSONE (DELTASONE) tablet 5 mg 5 mg, [...] Reyes RN) 0729 (Given - Provider: Amanda Madsen, STEVEN) insulin lispro (HumaLOG,ADMELOG) injection 0-12 Units 0-12 Units, subCUT, EVERY 4 HOURS, First dose on Tue03/14/25 at 2000, Until Discontinued, Routine 2000 (Not Given - Provider: Adriane Schulte RN [...] daily. 0842 (Given - Provider: Eliezer Reyes RN)2108 (Given - Provider: Kristy Self RN) 0836 (Given - Provider: Amanda Madsen RN) naloxone (NARCAN) 0.4 mg/mL injection 0.1-0.4 mg 0.1-0.4 mg, IV, SEE ADMIN INSTRUCTIONS, Starting on Tue03/14/25 at 1846, Until Tue03/16/25 at 1631, Routine potassium CHLORIDE (KLOR-CON) SR tablet 40 mEq (COMPLETED) 40 mEq, Oral, ONE TIME ONLY, 1 dose, On Tue03/16/25 at 0830, Routine 0836 (Given - Provider: [...] 1958 (Given - Provider: Adriane Schulte RN) 0830 (Given - Provider: Eliezer Reyes RN) 0836 (Given - Provider: Amanda Madsen, STEVEN) sirolimus (RAPAMUNE) tablet 1 mg 1 mg, Oral, DAILY, First dose on Tue03/15/25 at 0900, Until Discontinued, Routine, Previous Med: sirolimus (RAPAMUNE) 1 mg tablet - Orig Sig - Take 1 mg by mouth daily. 0842 (Given - Provider: Eliezer Reyes RN) 0836 (Given - Provider: Amanda Madsen RN) PRN Medication Order 03/14/2025 03/15/2025 03/16/2025 acetaminophen (TYLENOL) tablet 650 mg 650 mg, Oral, EVERY 6 HOURS PRN, Starting on Tue03/15/25 at 1303, Until 03/16/25 at 1631, Other (See Comment), See admin instructions, Routine, Post-Procedure (Invasive Cardiology) 2108 (Given - Provider: Kristy Self RN) 0308 (Given - Provider: Kristy Self RN) ceFAZolin (ANCEF,KEFZOL) 2,000 mg in sodium chloride [...] (Invasive Cardiology) 1214 (Given - Provider: Quinten Bailey RN) lidocaine 1 % (XYLOCAINE) injection (CANCELED) ONE [...]
--- OUTSIDE RECORDS SUMMARY | 2025-03-17 17:57 | XMS_ITS | Encounter Summary ---
[facility] Organization [facility] Address 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 Encounter Details Date Type Department Care Team (Late st Contact Info) Description 03/14/2025 Patient Outreach [facility] [address] [place] [address] Magdiel Manrique Referral (Intake Assessment [facility]); Healthcare Access; Medication Assistance; Social Isolation (Filipino Interpretor required.) Social History Tobacco Use Types Packs/Day Years Used Date Smoking Tobacco: Never Assessed Feeling Safe Answer Date Recorded Are you [...] file Travel History Travel Start Travel End [place] 02/11/2025 03/14/2025 documented as of this encounter Progress Notes * Magdiel Manrique - 03/14/2025 4:47 PM CDT [facility] Referral Community Health and Access - Patient is uninsured. This Community Health Worker attempted to meet with patient, however, to complete Social Determinants of Health, offer community resources and connect to a Primary Care Physician. Patient does not have a Primary Care Provider at this time. Patient is provided german written community resources including Filipino as a 2nd language and pathway to citizen assistance resource. Patient is provided connect number to connect with Community Health at a later time. [facility] [address] [place] [address] [facility] ([facility]) Available in [facility]. [facility] [address] [place], [place] [address] [email or web address] The [facility] ([facility]) is our community???s immigrant service and information hub. Our programs and services for immigrants, their families, and the wider community are locally and nationally-acclaimed. We connect new arrivals with first-touch services and resources, engage foreign-born and the wider community, and build a more inclusive community. Programs include: Health Care Facilities Inspector andPlacement (R&P) for 1st 90 days in the country (services include securing initial housing), Refugee Pena Assistance (prg to provide short term pena assistance while they seek employment, Youth Mentoring Program, Temporary Assistance for Needy Families (TANF), Family Reunification with Priority 3 Affidavit of Relationship. [place] [facility] Assists with legal documents and forms, citizenship, green cards, family petitions, DACA, translations. The 1st consultation that is scheduled is free. If we take your case, we charge reduced-cost fees for all additional services. [facility] provides services regardless of your ability to pay and will work with you to find a solution if finances are an issue. [address] [place], [place] [address] Hong Konger Language Learner (ELL) FREE EGYPTIAN 2nd Language [facility] offers free classes for Hong Konger Language Learners (ELLs) in [place], [place], and [place]. Non-Hong Konger speakers who are at least 18 years of age or older and whoare no longer enrolled in school can enroll in ELL classes. Day and evening classes are available. For class schedules, locations, or registration information, please call . You can also click on HSE/ELL Prep Locations and Times in the important HSE links[place] [address] or visit ELL class locations and times. For more information about [place] Konger Language Learner [place]: [place] [address] or visit ELL class locations and schedule. U.S. Citizenship Test Prep Class by [employer] It offers its free U.[place]. Citizenship Test Prep Class to anyone who needs it, but it targets refugeesand immigrants hoping to become citizens. This class offers 30 online lessons for people to preparefor the U.[place]. citizenship test. This program teaches integrated civics, history, and government and offers a comprehensive practice exam. At your own pace to learn at any time.[email or web address]-[email or web address]-[email or web address]/) for services. Call for more information. Open 24 hours Languages: Kyrgyz, Swedish, Hong Konger, Citizen Of [place], French, Arabic, Polish, Filipino, Swahili, Saudi Arabian, Hungarian [facility]. Free reading tutors for adults and children. Hours of operation Tuesday through from 8:30 a.m. to 4:30 a.m. Reading assessments by [address], [place] [address] Email: [email or web address] VANESSA Carias CHW Community Health and Fresh Work Wrapper Layer [facility] Care Clinic Liaison 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
--- OUTSIDE RECORDS SUMMARY | 2025-03-17 17:57 | XMS_ITS | Encounter Summary ---
Author Organization [facility] Address [address] [facility] Attn: [place] [address] Care Team Providers Care Mathematical Sciences Professor Name Role Phone Unavailable Primary Care Provider Unavailabl e Encounter Details Date Type Department Care Team (Latest Contact Info) Description 03/14/2025 Travel Social History Tobacco Use Types Packs/Day Years [...] 02/11/2025 03/14/2025 documented as of this encounter Plan of Treatment Upcoming Encounters Date Type Department Care Team (Late st Contact Info) Description 04/08/2025 2:00 PM CDT Nurse Only [facility] [address] [place] [phone] Marybel Novak MD 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 [place] [phone] Marybel Novak MD [address] [facility] [address] [place] [address] Jeevan Rodriguez CRNP [address] [facility] [address] [place] [address] documented as of this encounter Visit Diagnoses Not on filedocumented in this encounter
--- OUTSIDE RECORDS SUMMARY | 2025-03-17 17:57 | XMS_ITS | Clinical Summary ---
Author Organization [facility] Address [address] [place] [address] Phone Care Team Providers Care Vice Provost Name Role Phone Unavailable Primary Care Provider Unavailabl e Allergies No known active allergies Medications linaGLIPtin (TRADJENTA) 5 mg Tablet Take 5 mg by mouth daily. Active enalapril (VASOTEC) 5 mg tablet Take 5 mg by mouth daily. Active predniSONE (DELTASONE) 5 mg tablet Take 5 mg by mouth daily with breakfast. Active mycophenolate mofetil (CELLCEPT) 500 mg tablet Take 500 mg by mouth 2 times daily. Active sirolimus (RAPAMUNE) 1 mg tablet Take 1 mg by mouth daily. Active calcitRIOL (ROCALTROL) 0.25 mcg capsule Take 0.25 mcg by mouth daily. 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 Complete heart block 03/14/2025 Heart block AV complete 03/14/2025 Syncope and collapse 03/14/2025 Type 2 diabetes mellitus with hyperglycemia 02/18 Renal transplant recipient 03/14/2025 Temporary transvenous cardiac pacemaker present 03/14/2025 CHB (complete heart block) 03/14/2025 Encounters Date Type Department Care Team Description 03/15/2025 12:00 PM CDT - 03/15/2025 1:06 PM CDT Surgery [facility] Cardiac Chairman & Ceo [address] [place] [address] Vira Novak MD Pacemaker insertion, Medtornic dual chamber 03/14/2025 3:15 PM CDT - 03/16/2025 2:15 PM CDT Hospital Encounter [facility] 3E Surgical Intensive Care [address] [place] [phone] Janeth Moore DO Syed, Ammar, MD Anand, Neesha, MD Heart block AV complete (CMS/HCC) Discharge Disposition: Home or Self Care 03/14/2025 Patient Outreach [facility] [address] [place] [address] Magdiel Manrique Referral (Intake Assessment [facility]); Healthcare Access; Medication Assistance; Social Isolation (Wolof Interpretor required.) 03/14/2025 Travel from Last 3 Months Social History Tobacco Use Types Packs/Day Years [...] file Travel History Travel Start Travel End [place] 02/11/2025 03/14/2025 Last Filed Vital Signs Vital Sign Reading [...] Mass Index 24.53 03/15/2025 10:05 AM CDT Plan of Treatment Upcoming Encounters Date Type Department Care Team (Late st Contact Info) Description 04/08/2025 2:00 PM CDT Nurse Only [facility] [address] [place] [phone] Vira Novak MD [address] [place] [address] 07/30/2025 2:10 PM BANNER PAINTER Office Visit [facility] [address] [place] [address] Vira Novak MD [address] [place] [phone] Jeevan Rodriguez CRNP [address] [place] [address] Health Maintenance Due Date Last Done Comments DIABETES ANNUAL FOOT EXAM 1973 DIABETES ANNUAL RETINAL EXAM 1973 DIABETES HBA1C Q 6 MONTHS 1973 DIABETES MICROALBUMIN ANNUAL SCREEN 1973 LDL CHOLESTEROL ANNUAL 1973 DTAP/TDAP/TD VACCINES (1 - Tdap) 1974 PNEUMOCOCCAL VACCINE 50+ YEARS (1 of 2 - PCV) 09/24/18 75 BREAST CANCER SCREENING 1995 COLORECTAL SCREENING 2000 Colorectal Cancer Screening 2000 FIT-DNA Q 3 years 2000 FIT/FOBT Q 1 year 2000 Flex Sig/CT Colonography Q 5 years 2000 ZOSTER VACCINE (1 of 2) 2005 OSTEOPOROSIS SCREENING 2020 INFLUENZA VACCINE (#1) 2024 RSV VACCINE (60+ or ) (1 - 1-dose 75+ series) 2030 Medical Devices Implanted Type Area Rod Mill Tender Device Identifier Shelf Expiration Date Model / Serial / Lot Lead Capsurefix Novus Mri 52cm Endocardial Pacing 5076-52 - [id number] Implanted:Qty: 1 on 03/15/2025 by Vira Novak MD at [facility] Lead Left: Chest Wall [employer]- CRM - BULK BUY [id number] 12/13/2026 5076-52 / [id number] 6V / Lead Pacing Capsure Fix Novus 45cm [id number] - Csc - [id number] Implanted:Qty: 1 on 03/15/2025 by Vira Novak MD at [facility] Lead Left: Chest Wall [employer]- CRM - BULK BUY [id number] 01/07/2027 5076-45 / [id number] 2V / Pacemaker South Renovo Xt Dr Mri Ipg Dual Chmbr Surescan [id number] - [id number] Implanted:Qty: 1 on 03/15/2025 by Vira Novak MD at [facility] Pacemaker Left: Chest Wall [employer]- CRM - BULK BUY [id number] 07/16/2026 [id number] / [id number] / Procedures Procedure Name Priority Date/Time Associated Diagnosis Comments POC GLUCOSE Routine 03/16/2025 11:08 AM CDT POC GLUCOSE Routine 03/16/2025 7:25 AM CDT MAGNESIUM LEVEL Routine 03/16/2025 3:14 AM CDT COMPREHENSIVE METABOLIC PANEL Routine 03/16/2025 3:14 AM CDT CBC WITH DIFFERENTIAL Routine 03/16/2025 3:14 AM CDT POC GLUCOSE [...] 1 VW Routine 03/15/2025 5:12 AM CDT COMPREHENSIVE METABOLIC PANEL Routine 03/15/2025 4:10 AM CDT CBC WITH DIFFERENTIAL Routine 03/15/2025 4:10 AM CDT POC GLUCOSE [...] 1 VW Stat 03/14/2025 3:54 PM CDT BRAIN NATRIURETIC PEPTIDE, BNP OR PROBNP Stat 03/14/2025 3:36 PM CDT MAGNESIUM LEVEL Stat 03/14/2025 3:36 PM CDT TROPONIN BASELINE, 5TH GEN Stat 03/14/2025 3:36 PM CDT COMPREHENSIVE METABOLIC PANEL Stat 03/14/2025 3:36 PM CDT PROTIME-INR Stat 03/14/2025 3:36 PM CDT EKG 12-LEAD Stat 03/14/2025 3:24 PM CDT from Last 3 Months Results * (ABNORMAL) POC GLUCOSE (03/16/2025 11:08 AM CDT) Only the most recent of11 resultswithin the time period is included. [facility] GLUCOSE POC 293(H) 74 - 99 mg/dL 03/16/2025 11:08 AM CDT [facility] SPECIMEN SOURCE, GLUCOSE POC Capillary 03/16/2025 11:08 AM CDT [facility] Blood, whole 03/16/2025 11:0 8 AM CDT 03/16/2025 11:50 AM CDT us Justyna Burnette MD POINT OF CARE TESTING Final Resu lt [facility] CLIA # [id number] [address] [address] [place], [place] [id number] * (ABNORMAL) CBC WITH DIFFERENTIAL (03/16/2025 3:14 AM CDT) Only the most recent of3 resultswithin the time period is included. [facility] WBC 7.3 4.8 - 10.8 K/uL 03/16/2025 3:49 AM [facility] RBC 5.32 4.20 - 5.40 M/uL 03/16/2025 3:49 AM [facility] HEMOGLOBIN 13.9 12.0 - 16.0 g/dL 03/16/2025 3:49 AM [facility] HEMATOCRIT 43.8 36.0 - 46.0 % 03/16/2025 3:49 AM [facility] MCV 82.3(L) 84.0 - 103.0 fL 03/16/2025 3:49 AM [facility] MCH 26.1(L) 27.0 - 34.0 pg 03/16/2025 3:49 AM [facility] MCHC 31.7 30.0 - 35.0 g/dL 03/16/2025 3:49 AM [facility] PLATELETS 150 140 - 440 K/uL 03/16/2025 3:49 AM [facility] MPV 10.6 8.9 - 12.8 fL 03/16/2025 3:49 AM [facility] RDW 16.2(H) 11.0 - 14.5 % 03/16/2025 3:49 AM [facility] RDW-STDEV 48.7 37.0 - 54.0 fL 03/16/2025 3:49 AM [facility] NEUTROPHILS 49 42 - 75 % 03/16/2025 3:49 AM [facility] LYMPHOCYTES 38 24 - 44 % 03/16/2025 3:49 AM [facility] [employer] [facility] MONOCYTES 11(H) 2 - 10 % 03/16/2025 3:49 AM [facility] [employer] [facility] EOSINOPHILS 1 0 - 7 % 03/16/2025 3:49 AM [facility] [employer] [facility] BASOPHILS 0 0 - 1 % 03/16/2025 3:49 AM [facility] IMMATURE GRANULOCYTES 0 0 - 2 % 03/16/2025 3:49 AM [facility] NEUTROPHIL ABSOLUTE 3.57 2.00 - 8.00 K/uL 03/16/2025 3:49 AM CDT [facility] LYMPHOCYTE ABSOLUTE 2.77 1.20 - 4.00 K/uL 03/16/2025 3:49 AM CDT [facility] MONOCYTE ABSOLUTE 0.79(H) 0.10 - 0.60 K/uL 03/16/2025 3:49 AM CDT [facility] EOSINOPHIL ABSOLUTE 0.08 0.00 - 0.70 K/uL 03/16/2025 3:49 AM CDT [facility] BASOPHILS ABSOLUTE 0.02 0.00 - 0.20 K/uL 03/16/2025 3:49 AM CDT [facility] IMMATURE GRANULOCYTES ABSOLUTE 0.03 0.00 - 0.10 K/uL 03/16/2025 3:49 AM CDT [facility] SMEAR REVIEWED: NA - Not Applicable 03/16/2025 3:49 AM CDT [facility] Blood Venipuncture / Unknown 03/16/2025 3:14 AM CDT 03/16/2025 3:44 AM CDT us Laura Stoner NP HEMATOLOGY ORDERABLES Final Resu lt Performing Organization Address City/[facility]/ZIP Co de Phone Number [facility] CLIA # [id number] [address] [place] [address] [place] [address] * MAGNESIUM LEVEL (03/16/2025 3:14 AM CDT) Only the most recent of2 resultswithin the time period is included. MAGNESIUM 1.9 1.6 - 2.4 mg/dL 03/16/2025 4:20 AM CDT [facility] Blood Venipuncture / Unknown 03/16/2025 3:14 AM CDT 03/16/2025 3:46 AM CDT Justyna Burnette MD CHEMISTRY ORDERABLES Final Resul t [facility] CLIA # [id number] [address] [address] [place] [address] * (ABNORMAL) COMPREHENSIVE METABOLIC PANEL (03/16/2025 3:14 AM CDT) Only the most recent of3 resultswithin the time period is included. SODIUM 140 136 - 145 mmol/L 03/16/2025 4:20 AM CDT [facility] POTASSIUM 3.8 3.5 - 5.1 mmol/L 03/16/2025 4:20 AM CDT [facility] CHLORIDE 106 98 - 107 mmol/L 03/16/2025 4:20 AM CDT [facility] CO2 23 22 - 29 mmol/L 03/16/2025 4:20 AM CDT [facility] CALCIUM 8.6(L) 8.8 - 10.2 mg/dL 03/16/2025 4:20 AM CDT [facility] BUN 17 8 - 23 mg/dL 03/16/2025 4:20 AM CDT [facility] CREATININE 0.66 0.51 - 0.95 mg/dL 03/16/2025 4:20 AM CDT [facility] GLUCOSE 125(H) 74 - 99 mg/dL 03/16/2025 4:20 AM CDT [facility] TOTAL PROTEIN 6.0(L) 6.4 - 8.3 g/dL 03/16/2025 4:20 AM T [facility] ALBUMIN 3.1(L) 3.5 - 5.2 g/dL 03/16/2025 4:20 AM CDT [facility] BILIRUBIN TOTAL 0.5 0.0 - 1.0 mg/dL 03/16/2025 4:20 AM CDT [facility] ALKALINE PHOSPHATASE 73 35 - 104 U/L 03/16/2025 4:20 AM CDT [facility] AST 18 10 - 35 U/L 03/16/2025 4:20 AM CDT [facility] ALT 29 <=35 U/L 03/16/2025 4:20 AM CDT [facility] GFR >60 >=60 mL/min/1.7 3 sq meter 03/16/2025 4:20 AM CDT [facility] Comment:eGFR calculated with 2020 CKD-EPI equation. Vegetarian diet, extremely high or low muscle mass, and may affect results. Cystatin C with Glomerular Filtration Rate is a suitable alternative for these patients. ANION GAP 11 9 - 20 mmol/L 03/16/2025 4:20 AM CDT [facility] Blood Venipuncture / Unknown 03/16/2025 3:14 AM CDT 03/16/2025 3:46 AM CDT Laura Stoner NP CHEMISTRY ORDERABLES Final Resul t [facility] CLIA # [id number] [address] [place] [address] * XR CHEST PA AND LATERAL 2 VW (03/15/2025 7:56 PM CDT) Anatomical Region Laterality Modality Chest Computed Radiogr aphy 03/15/2025 7:56 PM CDT Impressions 03/16/2025 1:38 AM CDT IMPRESSION: No acute cardiopulmonary abnormality identified. MACRO: None Narrative 03/16/2025 1:38 AM CDT EXAMINATION: XR CHEST PA AND LATERAL 2 VW CLINICAL HISTORY: ASSOCIATED DIAGNOSIS: Post-Operative ORDERING PROVIDER: VIRA NOVAK TECHNOLOGISTS NOTE: COMPARISON: Chest radiograph 03/15/2025 FINDINGS: [...] HISTORY: ASSOCIATED DIAGNOSIS: Post-Operative ORDERING PROVIDER: VIRA NOVAK TECHNOLOGISTS NOTE: COMPARISON: Chest radiograph 03/15/2025 FINDINGS: Lines, tubes, and devices: Interval placement of left chest wall pacemaker with dual leads terminating over the expected locations of the right atrial appendage and right ventricle Lungs and pleura: No focal pulmonary consolidation, effusion or pneumothorax. Cardiomediastinal silhouette: Normal cardiomediastinal silhouette. Musculoskeletal: Unremarkable. IMPRESSION: No acute cardiopulmonary abnormality identified. MACRO: None us Vira Novak MD DIAGNOSTIC IMAGING ORDERABLES Final Result * EKG 12-LEAD (03/15/2025 1:27 PM CDT) Only the most recent of3 resultswithin the time period is included. 03/15/2025 1:27 PM CDT Narrative INTERFACE SYSTEM - 03/17/2025 12:53 [place] [address] Test Date: 2025-03-15 Pat Name: IRIS SUHA Department: 12 Room: [address] [place] [address] Gender: Female Pai Gow Manager: [id number] : 1955 Requested By: Order Number: [id number] Agustin MD: Vira Novak Measurements Intervals [place] Rate: 60 P: -5 CA: 224 QRS: -7 QRSD: 114 T: 77 QT: 444 QTc: 444 Interpretive Statements Atrial-paced rhythm with prolonged AV conduction Incomplete left bundle branch block Minimal voltage criteria for LVH, may be normal variant ( Reddy product ) Nonspecific T wave abnormality Abnormal ECG Electronically Signed On 03-17-2025 12:53:22 CDT by Vira Novak Procedure Note Provider, Historical - 03/17/[address] [address] Test Date: 2025-03-15 Pat Name: IRIS SUHA Department: 12 Room: [address] [place] [address] Gender: Female Pai Gow Manager: [id number] : 1955 Requested By: Order Number: [id number] Reading MD: Vira Novak Measurements Intervals [place] Rate: 60 P: -5 CA: 224 QRS: -7 QRSD: 114 T: 77 QT: 444 QTc: 444 Interpretive Statements Atrial-paced rhythm with prolonged AV conduction Incomplete left bundle branch block Minimal voltage criteria for LVH, may be normal variant ( [employer] product) Nonspecific T wave abnormality Abnormal ECG Electronically Signed On 03-17-2025 12:53:22 CDT by Vira Novak us Justyna Burnette MD ECG ORDERABLES Final Result INTERFACE SYSTEM Refer to clinic/hospital department * EKG 12-LEAD MAGNET (03/15/2025 1:26 PM CDT) 03/15/2025 1:26 PM CDT Narrative INTERFACE SYSTEM - 03/17/2025 12:53 [place] [address] Test Date: 2025-03-15 Pat Name: IRIS BORDEN Department: 12 Room: CARDIAC CA Cardiac Ca Gender: Female Pai Gow Manager: [id number] : 1955 Requested By: Order Number: [id number] Reading : Vira Novak Measurements Intervals [place] Rate: 84 P: 56 CA: 160 QRS: -15 QRSD: 110 T: 93 QT: 410 QTc: 484 Interpretive Statements Atrial-paced rhythm with frequent AV dual-paced complexes Incomplete left bundle branch block Minimal voltage criteria for LVH, may be normal variant ( Reddy product ) ST & T wave abnormality, consider lateral ischemia QTcB >= 480 msec Abnormal ECG Electronically Signed On 03-17-2025 12:53:12 CDT by Vira Novak Procedure Note Provider, Historical - 03/17/2025 [place] [address] Test Date: 2025-03-15 Pat Name: IRIS BORDEN Department: 12 Room: CARDIAC CA Cardiac Ca Gender: Female Pai Gow Manager: [id number] : 1955 Requested By: Order Number: [id number] Reading MD: Vira Novak Measurements Intervals [place] Rate: 84 P: 56 CA: 160 QRS: -15 QRSD: 110 T: 93 QT: 410 QTc: 484 Interpretive Statements Atrial-paced rhythm with frequent AV dual-paced complexes Incomplete left bundle branch block Minimal voltage criteria for LVH, may be normal variant ( [place]dy product) ST & T wave abnormality, consider lateral ischemia QTcB >= 480 msec Abnormal ECG Electronically Signed On 03-17-2025 12:53:12 CDT by Vira Novak us Vira Novak MD ECG ORDERABLES Final Result INTERFACE SYSTEM Refer to clinic/hospital department * PACEMAKER INSERTION (03/15/2025 12:36 PM CDT) Narrative [facility] - 03/15/2025 12:46 PM CDT DUAL [...] The LEAD PACING CAPSURE FIX NOVUS 45CM [id number] - CSC RA lead was successfully implanted [...] copiously irrigated with 0.9% normal saline solution. us Vira Noavk MD CUP EP ORDERABLES Final Resul t [facility] CARDIOLOGY [facility] [id number] [address] [facility] [address] [place] [address], [place] [phone] * ECHO COMPLETE - CONTRAST AND STRAIN IF INDICATED (03/15/2025 8:15 AM CDT) EJECTION FRACTION 50 INTERFACE SYSTEM 03/15/2025 7:13 AM CDT [employer] INTERFACE SYSTEM - 03/15/2025 8:20 AM CDT [facility] Cardiovascular Services Echocardiography Laboratory [address] [place] [address] Transthoracic Echocardiography Patient: Iris Borden Study ID: ECHO COMPLETE - Gender: F : 1955 Age: 69 Room: [facility] Study Date: 03/15/2025 Pt Status: Inpatient Study Time: 07:13:44 AM CSN #: [id number] Ordering:Alyson Michelle Linen Manager: Chey Saravia Indications and History: Av heart [...] (H) brittany values outside specified reference range. [facility] Echo Labs are accredited with the Intersocietal Accreditation Commission - Echocardiography. Prepared and Electronically Authenticated Abdullahi Montero MD Confirmed 03/15/2025 08:20 Procedure Note Abdullahi Montero MD - 03/15/2025 [facility] Cardiovascular Services Echocardiography Laboratory [address] [place] [address] Transthoracic Echocardiography Patient: Iris Borden Study ID: ECHOCOMPLETE - Gender: Aleks : 1955 Age: 69 Room: [facility] Study Date: 03/15/2025 Pt Status: Inpatient Study Time: 07:13:44 AM CSN #: [id number] Ordering:Alyson Michelle Linen Manager: Chey Saravia Indications and History: Av heart [...] (H) brittany values outside specified reference range. [facility] Echo Labs are accredited with theIntersocietal Accreditation Commission - Echocardiography. Prepared and Electronically Authenticated Abdullahi Montero MD Confirmed 03/15/2025 08:20 us Alyson KINSEYP US ORDERABLES Final Resu lt INTERFACE SYSTEM Refer to clinic/hospital department * XR CHEST PA OR AP 1 VW (03/15/2025 5:12 AM CDT) Only the most recent of2 resultswithin the time period is included. Anatomical Region Laterality Modality Chest Computed Radiogr [...] skeleton without gross acute pathology. Laura Stoner HIGH SCHOOL GUIDANCE COUNSELOR DIAGNOSTIC IMAGING ORDERABLES Fi nal Result * TROPONIN 6 HR, 5TH GEN (03/14/2025 9:02 PM CDT) TROPONIN T, 6 HR 5TH GEN 8 <11 ng/L 03/14/2025 9:45 PM CDT [facility] DELTA 6HR TROPONIN T -2 See Interp. 03/14/2025 9:45 PM CDT [facility] Blood Venipuncture / Unknown 03/14/2025 9:02 PM CDT 03/14/2025 9:09 PM CDT Narrative [facility] - 03/14/2025 9:45 PM CDT Troponin Detectable but normal range. Delta indeterminate. Janeth Moore DO CHEMISTRY ORDERABLES Final Resul t Performing Organization Address City/State/[facility] Co de Phone Number [facility] CLIA # [id number] [address] [address] * TROPONIN BASELINE, 5TH GEN (03/14/2025 3:36 PM CDT) TROPONIN T, BASELINE 5TH GEN 10 <=10 ng/L 03/14/2025 5:05 PM CDT [facility] Blood Venipuncture / Unknown 03/14/2025 3:36 PM CDT 03/14/2025 3:51 PM CDT [facility] [employer] [facility] - 03/14/2025 5:05 PM CDT Troponin Detectable but normal range. Janeth Moore DO CHEMISTRY ORDERABLES Final Resul t Performing Organization Address [facility] de Phone Number [facility] [employer] [facility] CLIA # [id number] [address] [place] [address] * PROTIME-INR (03/14/2025 3:36 PM CDT) Pathologist [facility] PROTIME 14.2 12.7 - 14.9 Seconds 03/14/2025 4:08 PM CDT [facility] INR 1.0 0.8 - 1.2 03/14/2025 4:08 PM CDT [facility] Blood Venipuncture / Unknown 03/14/2025 3:36 PM CDT 03/14/2025 3:50 PM CDT [facility] [employer] [facility] - 03/14/2025 4:08 PM CDT Expected Values for INR: DVT/PE Goal INR 2.5; range 2.0 - 3.0 Valve Replacement Tissue Goal INR 2.5; range 2.0 - 3.0 Valve Replacement Mechanical Goal INR 3.0; range 2.5 - 3.5 POST-LA Goal INR 2.5; range 2.0 - 3.0 or Goal INR 3.0; range 2.5 - 3.5 Atrial Fibrillation Goal INR 2.5; range 2.0 - 3.0 Ischemic Stroke Goal INR 2.5; range 2.0 - 3.0 Janeth Moore DO HEMATOLOGY ORDERABLES Final Resu lt Performing Organization Address [facility] Co de Phone Number [facility] [employer] [facility] CLIA # [id number] [address] [address] * (ABNORMAL) BRAIN NATRIURETIC PEPTIDE, BNP OR PROBNP (03/14/2025 3:36 PM CDT) [facility] PROBNP, N TERMINAL 1,004(H) 0 - 125 pg/mL 03/14/2025 4:49 PM CDT [facility] [employer] [facility] Comment: INTERPRETIVE COMMENT based on diagnosis: Diagnostic [...] ORDERABLES Final Resul t Performing Organization Address [facility]/ZIP Co de Phone Number [facility] [employer] [facility] CLIA # [id number] [address] [address] from Last 3 Months Advance Directives For more information, please contact: [phone] * Full Code (Latest Code Status on File) Date Activated Date Inactivated Comments 03/15/2025 1:03 PM 03/16/2025 4:31 PM * Full Code Date Activated Date Inactivated Comments 03/14/2025 6:47 PM 03/15/2025 1:03 PM
[2025-03-17 17:59] VITALS: BP 190/73; PULSE 61; TEMP 36.9; O2SAT 93
--- NOTE | 2025-03-17 18:12 | ECG_ITS ---
[facility] Test Date: 2025-03-17 Pat Name: Sarah Sandy Department: Room: 269 Gender: Female Psychiatric Tech: : 1955 Requested By: Ronen Rich Order Number: [id number] Velez MD: Jose Alfredo Shah M.D. Measurements Intervals [place] Rate: 60 P: 216 HI: 231 QRS: 1 QRSD: 116 T: 78 QT: 392 QTc: 393 Interpretive Statements ELECTRONIC ATRIAL PACEMAKER MODERATE INTRAVENTRICULAR CONDUCTION DELAY [110+ ms QRS DURATION] MODERATE T-WAVE ABNORMALITY, CONSIDER ANTERIOR ISCHEMIA [-0.1+ mV T-WAVE IN V3/V4] Compared to ECG 03/14/2025 11:45:34 Intraventricular conduction delay now present T-wave abnormality now present Possible ischemia now present Ventricular-paced complex(es) or rhythm no longer present Electronically Signed On 03-21-2025 09:10:50 CDT by Jose Alfredo Shah M.D. [email or web address]
[2025-03-17 18:19] VITALS: PULSE 60; RESP 18; O2SAT 93
--- NOTE | 2025-03-17 18:39 | CTR_ITS ---
PROCEDURE INFORMATION: Exam: CT Abdomen And Pelvis Without Contrast Exam date and time: 03/17/2025 7:07 PM Age: 69 years old Clinical indication: Nausea and vomiting and other: Dysuria; Abdominal pain; Localized; Left lower quadrant (llq); Prior surgery; Surgery date: 3-7 days post-operative; Surgery type: Temporary pacemaker 03/14/2027. Renal transplant; C/O llq/pelvic pain with n/v and dysuria. ; Additional info: Pelvic pain, llq decreased urination TECHNIQUE: Imaging protocol: Computed tomography of the abdomen and pelvis without contrast. Radiation optimization: All CT scans at this facility use at least one of these dose optimization techniques: automated exposure control; mA and/or kV adjustment per patient size (includes targeted exams where dose is matched to clinical indication); or iterative reconstruction. COMPARISON: CR XR chest 1V portable [id number] 03/14/2025 9:10 AM RADIATION DOSE METRICS: Total DLP (mGy-cm): 985.15 FINDINGS: Pleural spaces: Trace bilateral pleural effusions with adjacent atelectasis. Diaphragm: Small hiatal hernia. Liver: The liver is normal. No hepatic masses are identified. Gallbladder and biliary ducts: The gallbladder is normal. There is no ductal dilatation. Pancreas: The pancreas is normal. Spleen: The spleen is normal. Adrenal glands: 7 mm left adrenal nodule likely small adenoma. The adrenal glands are otherwise normal. Kidneys and ureters: Severely atrophic [place] kidneys. Right lower quadrant renal transplant. Small gas in the renal collecting system may be related to reflux in the setting of recent urinary bladder instrumentation. Emphysematous pyelitis is also a possibility. There is no hydronephrosis or significant perinephric inflammatory change. Stomach and bowel: Mild colonic diverticulosis without diverticulitis. There is no large or small bowel obstruction. There is no evidence of bowel wall thickening. Appendix: A normal appendix is identified. Intraperitoneal space: No inflammatory changes are identified. There is no free fluid or fluid collection seen. There is no pneumoperitoneum. Vasculature: Atherosclerotic calcifications of the aorta are present. No aneurysm is identified. Lymph nodes: No enlarged lymph nodes are identified. Urinary bladder: The bladder is decompressed and collapsed. No abnormality identified. Reproductive: Calcified uterine fibroids are present. Calcification in the right adnexa has the same calcification pattern other fibroids and likely represents exophytic fibroid. Bones/joints: No acute osseous abnormalities are seen. Soft tissues: Small periumbilical hernia containing only fat. Moderate anterior pelvic wall midline ventral hernia containing segment of small bowel without obstruction. CT/CT kidney stone [id number] IMPRESSION: 1. Right lower quadrant renal transplant. Small gas in the renal collecting system may be related to reflux in the setting of recent urinary bladder instrumentation. Emphysematous pyelitis is also a possibility. 2. Other nonemergent findings above. COMMENTS: Consistent with the [employer]'s Incidental Findings Committee white paper (J Am Zaria Radiol 2017): Any incidental adrenal lesion less than 1 cm is likely benign. No follow-up imaging is recommended for these lesions per consensus recommendations based on imaging criteria. Further lab evaluation could be pursued if warranted based on clinical findings.
--- NOTE | 2025-03-17 18:42 | PC.NURSE ---
PATIENT ONLY HAD 4 ML URINE IN BLADDER, DUE TO VOIDING PRIOR TO ROOMING PATIENT.
--- NOTE | 2025-03-17 18:43 | ED_ITS ---
HPI - Female Genitourinary 2 General: Chief complaint: Urogenital-Female Stated complaint: blood sugar Time Seen by Provider: 03/17/25 18:02 History of Present Illness: 69-year-old South African-speaking female with a history of renal transplant. She was seen 3 days ago in this ER, and taken emergently to the [facility] temporary pacemaker placement prior to being transferred to [facility] for permanent pacemaker placement. She was discharged yesterday and came home last night. Since last night, she has complained of right lower quadrant pain, and difficulty urinating. She has vomited 3 times today. She is unaware of any fever. No diarrhea. No blood in the stool. Her only history of abdominal surgery is that of her kidney transplant which she says is located in the right lower quadrant. She did urinate in triage prior to coming to the ER room. Related Data Home Medications ?Medication ?Instructions ?Recorded ?Confirmed calcitriol 0.25 mcg capsule 0.25 mcg PO DAILY 03/18/25 03/18/25 enalapril maleate 5 mg tablet 5 mg PO DAILY 03/18/25 0 03/18/25 linagliptin 5 mg tablet 5 mg PO DAILY 03/18/2503/18 mycophenolate mofetil 500 mg tablet 500 mg PO BID 02/1903/18/25 prednisone 5 mg tablet 5 mg PO DAILY 03/18/2503/18 sirolimus 1 mg tablet 1 mg PO DAILY 03/18/2503/18 Allergies Allergy/AdvReac Type Severity Reaction Status Date / Time No Known Allergies Allergy Verified 03/18/25 02:42 [facility] 2 PFSH: Social History (Updated 03/18/25 @ 02:50 by Miracle Jnoes RN) Smoking and tobacco/nicotine status: never used tobacco/nicotine Alcohol intake: current Alcohol intake frequency: holidays/special occasions only Substance/Drug Use: never Additional 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 History of recent travel: Yes (from [place] ~2weeks ago per patient) Carrie/Caodaism: Muslim Physical Exam 2 Const: COMMON NORMALS: no acute distress GENERAL APPEARANCE: cooperative; not ill appearing and not frail appearing HENMT: COMMON NORMALS: normocephalic, atraumatic and Normal external nose present HEAD & SCALP: normocephalic and atraumatic FACE & SINUS: normal facial exam and face symmetric NOSE: Normal external nose present Eye: COMMON NORMALS: Equal, round and reactive pupils present and EOMs intact bilaterally PUPIL: Yes Equal, round and reactive pupils present Neck/C-Spine: GENERAL: Yes trachea midline Chest: CHEST: Yes Symmetrical chest wall rise Resp: COMMON NORMALS: normal respiratory effort, No retractions, No use of accessory muscles and clear to auscultation bilaterally AUSCULTATION: clear to auscultation bilaterally Cardio: COMMON NORMALS: regular rate and regular rhythm RATE: regular rate RHYTHM: regular rhythm GI: COMMON NORMALS: Normal to inspection, nondistended, normoactive bowel sounds present and Soft to palpation PALPATION: Yes Soft to palpation and Yes Tenderness to palpation present (GI) (Right lower quadrant and suprapubic) Extremity: COMMON NORMALS: no pedal edema Neuro: LEONARD COMA SCALE: document GCS findings [place] coma scale eye opening: Spontaneous Leonard coma scale verbal response: Orientated [place] coma scale motor response: Obey commands Leonard coma scale total score: 15 S ENSORY EXAM: Yes extremities (intact) OTHER: Pacemaker placement left upper chest. Bandaged. No drainage. Psych: COMMON NORMALS: speech normal SPEECH: Yes normal speech Course 2 Vital Signs: Vital signs: Vital Signs Temperature 98.3 F 03/18/25 01:12 Pulse Rate 68 03/18/25 02:56 Respiratory Rate 17 03/18/25 01:12 Blood Pressure 131/70 03/18/25 01:12 Pulse Oximetry 94 03/18/25 01:12 Oxygen Delivery Me thod Room Air 03/18/25 01:46 MDM - Female Medical Decision Making Postvoid residual is 4 mL. Her blood sugar is 207. She is hypertensive, otherwise vitals are stable. EKG on the monitor shows a paced rhythm at 60. After 500 mL bolus, patient still was unable to urinate. A liter bolus ordered. Patient was still unable to urinate. Her electrolytes are stable. Her creatinine is now 3.4. It was 1.1 prior to transfer to [facility] 3 to 4 days ago. White blood cell count is 13.4, but this was higher [address] shows gas in the renal collecting system related to Nair instrumentation on her admission likely. There is no perinephric stranding or other inflammatory change to indicate emphysematous pyelitis. We consulted nephrology by phone from the emergency department. The concern is that an acute kidney injury and a transplant patient, is this related to azotemia or low flow events that brought her to the emergency department such as a syncopal episode with bradycardia and hypotension, or is this acute rejection of the kidney? Likelihood of the former is much greater than the latter. Because of this nephrology is willing to consult on the patient, and make recommendations. However if she does not respond favorably renal function garibay with hydration, and if acute kidney rejection is suspected, she may need renal biopsy which we do not do at this facility. Both hospitalist and nephrology are comfortable with this as long as family is comfortable. I had a discussion with the patient's brother and her. They would like her treated here if possible, and are comfortable with doing so in terms of trying hydration here, with potential for renal biopsy only if needed. They understand that this could potentially delay definitive care in the circumstances and are willing to accept that risk. Should be admitted. The hospitalist has seen the patient in the ER. Lab Data 03/17/25 18:16 03/17/25 18:16 Radiology Impressions Abdomen/Pelvis CT 03/17/25 18:39 IMPRESSION: 1. Right lower quadrant renal transplant. Small gas in the renal collecting system may be related to reflux in the setting of recent urinary bladder instrumentation. Emphysematous pyelitis is also a possibility. 2. Other nonemergent findings above. COMMENTS: Consistent with the [place] [employer]'s Incidental Findings Committee white paper (J Am Zaria Radiol 2017): Any incidental adrenal lesion less than 1 cm is likely benign. No follow-up imaging is recommended for these lesions per consensus recommendations based on imaging criteria. Further lab evaluation could be pursued if warranted based on clinical findings. Laboratory Results WBC 13.44 10^3/uL (3.29-11.43) H 03/17/25 18:16 RBC 5.66 10^6/uL (3.85-5.65) H 03/17/25 18:16 Hgb 14.90 g/dL (11.27-16.99) 03/17/25 18:16 Hct 45.5 % (36-47) 03/17/25 18:16 MCV 80.4 fl (85-98) L 03/17/25 18:16 MCH 26.3 pg (27-33) L 03/17/25 18:16 MCHC 32.7 g/dL (30-55) 03/17/25 18:16 RDW 15.2 % (12.1-15.1) H 03/17/25 18:16 Plt Count 143 10^3/cmm (157-399) L 03/17/25 18:16 MPV 10.7 fL (7.4-10.4) H 03/17/25 18:16 Neut % (Auto) 80.3 % 03/17/25 18:16 Lymph % (Auto) 12.5 % 03/17/25 18:16 [place] % (Auto) 6.8 % 03/17/25 18:16 Eos % (Auto) 0.0 % 03/17/25 18:16 Baso % (Auto) 0.1 % 03/17/25 18:16 Neut # (Auto) 10.78 10^3/uL (1.8-7.7) H 03/17/25 18:16 Lymph # (Auto) 1.7 10^3/uL (0.8-4.8) 03/17/25 18:16 [place] # (Auto) 0.9 10^3/uL (0.2-0.9) 03/17/25 18:16 Eos # (Auto) 0.0 10^3/uL (0.0-0.8) 03/17/25 18:16 Baso # (Auto) 0.0 10^3/uL (0.0-0.1) 03/17/25 18:16 Nucleated RBC % (auto) 0 % 03/17/25 18:16 Nucleated RBCs # 0.0 /100WBC 03/17/25 18:16 Sodium 133 mmol/L (136-145) L 03/17/25 18:16 Potassium 4.5 mmol/L (3.5-5.1) 03/17/25 18:16 Chloride 99 mmol/L (98-107) 03/17/25 18:16 Carbon Dioxide 20 mmol/L (22-29) L 03/17/25 18:16 Anion Gap 18.5 (5-19) 03/17/25 18:16 BUN 29 mg/dL (8-23) H 03/17/25 18:16 Creatinine 3.4 mg/dL (0.5-0.9) H 03/17/25 18:16 GFR Calculation 13.4 mL/min (90-130) L 03/17/25 18:16 Glucose 203 mg/dL (65-115) H 03/17/25 18:16 POC Glucose 203 mg/dL (70-110) H 03/17/25 22:11 Calculated Osmolality 288 mOsm/kg (285-295) 03/17/25 18:16 Lactic Acid 1.5 mmol/L (0.5-2.2) 03/17/25 19:04 Calcium 9.8 mg/dL (8.5-10.5) 03/17/25 18:16 Phosphorus 4.5 mg/dL (2.5-4.5) 03/17/25 18:16 Magnesium 2.2 mg/dL (1.7-2.3) 03/17/25 18:16 Total Bilirubin 0.6 mg/dL (0.15-1.2) 03/17/25 18:16 AST 171 U/L (0-32) H 03/17/25 18:16 ALT 87 U/L (0-33) H 03/17/25 18:16 Alkaline Phosphatase 90 U/L (35-105) 03/17/25 18:16 C-Reactive Protein 15.2 mg/L (0.0-4.9) H 03/17/25 18:16 Total Protein 6.9 g/dL (6.6-8.7) 03/17/25 18:16 Albumin 3.6 g/dL (3.5-5.2) 03/17/25 18:16 Globulin 3.3 g/dL (1.3-4.6) 03/17/25 18:16 All radiology interpretation(s) finalized by discharge Discharge Plan Discharge Patient Disposition: Admitted As Inpatient Admit Provider: Aris Jeffrey Clinical Impression: Acute kidney injury, Anuria and oliguria Condition: Fair Coding Level of Care Code ED Joist Setter for Hailee Marinelli
[2025-03-17 18:48] LABS: Hematocrit 45.5 % (36-47); Hemoglobin 14.90 g/dL (11.27-16.99); Mean Corpuscular HGB Conc 32.7 g/dL (30-55); Mean Corpuscular Hemoglobin 26.3 pg (27-33); Mean Corpuscular Volume 80.4 fl (85-98); Nucleated Red Blood Cells % 0 %; Platelet Count 143 10^3/cmm (157-399); Red Blood Count 5.66 10^6/uL (3.85-5.65); White Blood Count 13.44 10^3/uL (3.29-11.43)
[2025-03-17 18:59] LABS: Alanine Aminotransferase 87 U/L (0-33); Albumin Level 3.6 g/dL (3.5-5.2); Alkaline Phosphatase 90 U/L (35-105); Anion Gap 18.5 (5-19); Aspartate Amino Transferase 171 U/L (0-32); Blood Urea Nitrogen 29 mg/dL (8-23); Calcium 9.8 mg/dL (8.5-10.5); Carbon Dioxide 20 mmol/L (22-29); Chloride 99 mmol/L (98-107); Globulin 3.3 g/dL (1.3-4.6); Glucose 203 mg/dL (65-115); Magnesium 2.2 mg/dL (1.7-2.3); Osmolality Calculated 288 mOsm/kg (285-295); Potassium 4.5 mmol/L (3.5-5.1); Sodium 133 mmol/L (136-145); Total Protein 6.9 g/dL (6.6-8.7)
[2025-03-17 19:18] VITALS: RESP 18
[2025-03-17] MEDS: morphine 4 mg/mL SDV 1 mL IVP (19:18)
[2025-03-17] MEDS: ondansetron 2 mg/ML SDV 2 mL 4 MG IVP (19:18)
[2025-03-17 19:24] LABS: Lactic Sepsis W/Reflex 1.5 mmol/L (0.5-2.2)
[2025-03-17 19:25] VITALS: BP 157/82; PULSE 60; O2SAT 95
[2025-03-17 21:16] VITALS: BP 170/61; PULSE 60; O2SAT 97
[2025-03-17 22:08] VITALS: BP 166/58; PULSE 60; O2SAT 91
[2025-03-18] VITALS (9 sets, daily range): BP systolic 129–172; BP diastolic 60–79; PULSE 58–70; RESP 16–20; TEMP 36–37.2; O2SAT 91–94; BMI 26.8
--- NOTE | 2025-03-18 01:00 | PM.HP ---
Providers/Chief Complaint Admitting Physician: Aris Jeffrey MD Primary Care Provider: In [facility] Chief Complaint: blood sugar History of Present Illness Sarah Sandy is a 69 year old female recently with syncope and heart rate in the 20s had transvenous pacemaker here on 03/14/2025 then transferred to [facility] where she had a permanent pacemaker placed. She was discharged yesterday. She is Guyanese-speaking and her history is translated by her son Stanislaw who is present at bedside and was with her during her hospitalizations. Patient is visiting from [facility] and has a transplant kidney placed 2006 due to hypertension. She has never had rejection before. Patient states that she missed her medication evening of the took her medicine on the morning of the but then also missed her meds on the evening because she was here. She does not have her medications with her. Patient has been eating less but was getting IV fluids and drinking fluids at the [facility]. Urine output has been absent today and she has pain over her transplanted kidney. Patient and Stanislaw deny that she had any IV contrast during these hospitalizations Review of Systems Narrative: General she felt hot but did not check temperature. Cardiovascular no chest pain palpitations or edema Respiratory no shortness of breath cough wheezing GI positive for nausea this a.m. 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: Homemaker Vitals/I&O/Wt Last Vital Signs Temp 98.4 F 03/17/25 17:59 Pulse 60 03/17/25 22:08 Resp 18 03/17/25 19:18 BP 166/58 03/17/25 22:08 Pulse Ox 91 03/17/25 22:08 O2 Del Method Room Air 03/17/25 22:08 03/17/25 03/17/25 03/18/25 14:59 22:59 06:59 Intake Total 500 / 500 1000 / 1500 Balance 500 / 500 1000 / 1500 Weight last 48 hrs Weight 56 kg Physical Exam Narrative: General well-developed well-nourished female in no acute cardiopulmonary distress CV regular rate and rhythm Lungs clear to auscultation bilaterally Abdomen positive bowel tones soft her right lower quadrant under transplant kidney scar is not hot or inflamed. She is minimally tender. Calves no tenderness cords pretrip edema Data 03/17/25 18:16 03/17/25 18:16 A&P Assessment and plan (1) Anuria and oliguria: Patient be given fluid boluses and furosemide to try and convert this to an uric renal failure to nonoliguric renal failure (2) Acute kidney injury: Cannot exclude rejection. Per recommendation from Dr. Argueta we gave [address] Argueta to consult in the morning (3) Renal transplant recipient: As above (4) Junctional bradycardia: Now status post pacemaker PDMP PDMP Reviewed: Not Reviewed Attestations Medical Necessity Statement*: Patient admitted to the hospital with acute renal failure and uric and will require greater than 2 midnights in hospital Coding Level of Care Code 21813 Diagnoses Anuria and oliguria R34 Acute kidney injury N17.9 Renal transplant recipient Z94.0 Junctional bradycardia R00.1 Time Spent (min) 70
[2025-03-18] MEDS: FUROsemide 10 mg/mL SDV 4mL 40 MG IVP (01:38)
[2025-03-18] MEDS: heparin 5,000 unit/mL INJ 1 mL 5000 UNIT SUBCUT (01:38)
[2025-03-18] MEDS: ondansetron 2 mg/ML SDV 2 mL 4 MG IVP ×2 (01:45→11:37)
--- NOTE | 2025-03-18 02:30 | PC.NURSE ---
Nausea/Admission Patient admission completed with assistance of Language Line services and use of tablet. Patient is Angolan speaking, alert & oriented. Patient had one episode of vomiting during admission assessment, approximately 250mL clear fluid with small white chunks. Patient received IV Zofran from this nurse. Patient had repeat of nausea approximately 20m later without further anti-emetic orders and complained of headache. This nurse spoke with Dr Jeffrey in person about patient's recurrent nausea. Orders received for Compazine, see physician notification documentation. This nurse went back to speak with patient about Compazine and to discuss if patient wanted to attempt oral pain medication or IV pain medication for her headache since she had nausea. Patient states that nausea and headache has improved currently and that she does not want any medication. Patient educated to press call button for any needs or concerns, voices understanding. Patient has family member at bedside.
--- NOTE | 2025-03-18 09:14 | PM.CONSULT ---
Providers/Reason For Consult Consulting Physician/Specialty*: Luisito Argueta MD/ telenephrology Reason for Consult*: KHLOE Requesting Physician: Dr Ashleigh Gonzalez Attending Physician: Ria Gonzalez MD History of Present Illness History of Present Illness Sarah Sandy is a 69 year old female history of renal transplant done in [place] believes she send 2006 with normal renal function. She believes it was a living donor. Patient was seen here on March 14, 2025 with junctional bradycardia. The patient was transferred to [facility] where she received a permanent pacemaker. The patient was discharged on March 16, 2025. She came to emergency room now with right lower quadrant pain difficulty urinating nausea and vomiting. The patient requested to stay in our hospital for evaluation of acute kidney injury. she c/o abdominal pain. she has no sob or hearing or seeing issues. denies diarrhea. Review of Systems Narrative: Patient complains of nausea abdominal pain vomiting constipation decreased urine output denies fever. Positive shortness of breath no headaches no hearing or seeing problems no leg pains. No itching or cramps. Positive abdominal pain denies fevers. The patient states she has been taking her medications Medications/Allergies Home Medications ?Medication ?Instructions ?Recorded ?Confirmed ?Last Taken ?Type calcitriol 0.25 mcg capsule 0.25 mcg PO DAILY 03/18/25 03/18/25 03/17/25 08:00 History enalapril maleate 5 mg tablet 5 mg PO DAILY 03/18/25 03/18/25 03/17/25 08:00 History linagliptin 5 mg tablet 5 mg PO DAILY 03/18/25 03/18/25 03/17/25 08:00 History mycophenolate mofetil 500 mg tablet 500 mg PO BID 03/18/25 03/18/25 03/17/25 08:00 History prednisone 5 mg tablet 5 mg PO DAILY 03/18/25 03/18/25 03/17/25 08:00 History sirolimus 1 mg tablet 1 mg PO DAILY 03/18/25 03/18/25 03/17/25 08:00 History Allergies Allergy/AdvReac Type Severity Reaction Status Date / Time No Known Allergies Allergy Verified 03/18/25 02:42 Current Medications Generic Name Dose Route Start Last Admin Trade Name Freq PRN Reason Stop Dose Admin Heparin Sodium (Porcine) 5,000 unit 03/18/25 00:54 03/18/25 01:38 Heparin 5,000 Unit/Ml Inj 1 Ml SUBCUT 5,000 unit Q12H JOSE Administration Sodium Chloride 1,000 mls @ 150 mls/hr 03/18/25 00:54 03/18/25 01:33 Sodium Chloride 0.9% IV 150 mls/hr .Q6H40M JOSE Administration Ondansetron HCl 4 mg 03/18/25 00:54 03/18/25 01:45 Ondansetron 2 Mg/Ml Sdv 2 Ml IVP 4 mg Q8H PRN Administration vomiting, or N/V if npo Prednisone 20 mg 03/17/25 23:55 03/18/25 00:24 Prednisone 20 Mg Tablet PO 20 mg DAILY JOSE Administration PFSH Acute PFSH: Social History (Updated 03/18/25 @ 02:50 by Miracle Jones RN) Smoking and tobacco/nicotine status: never used tobacco/nicotine Alcohol intake: current Alcohol intake frequency: holidays/special occasions only Substance/Drug Use: never Additional 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 History of recent travel: Yes (from [place] ~2weeks ago per patient) Carrie/Scientologist: Mormonism Vitals/I&O/Wt Last Vital Signs Temp 98.6 F 03/18/25 07:07 Pulse 61 03/18/25 07:07 Resp 18 03/18/25 07:07 BP 129/60 03/18/25 07:07 Pulse Ox 92 03/18/25 07:07 O2 Del Method Room Air 03/18/25 07:07 03/17/25 03/18/25 03/18/25 22:59 06:59 14:59 Intake Total 500 / 500 1240 / 1740 120 / 120 Balance 500 / 500 1240 / 1740 120 / 120 Weight last 48 hrs Weight 62.369 kg Weight 62.369 kg Weight 55.905 kg Weight 56 kg Physical Exam Narrative: The patient is overweight lying comfortably in bed no apparent distress. Vital signs noted. Blood pressure stable heart rate 60 HEENT normocephalic atraumatic neck is supple no JVP no carotid bruits Lungs are clear to auscultation Heart paced rhythm positive S1-S2 Abdomen is soft positive right lower quadrant tenderness. Extremities no edema. Neuro awake alert oriented x 3. Data 03/17/25 18:16 03/17/25 18:16 A&P Assessment and plan (1) Acute kidney injury: 69-year-old lady history of living renal transplant in 2006. Patient's baseline creatinine is 1.1 mg/dL. The patient presented on March 14, 2025 with a creatinine of 1.1 and bradycardia. The patient had a temporary pacemaker placed and then a permanent pacemaker placed and was discharged on March 16, 2025. The patient presented yesterday with oligoanuric renal failure. 1. Acute kidney injury abdominal CT noted severely atrophic [place] kidneys right lower quadrant renal transplant emphysematous pyelitis is a questionable. No hydronephrosis or significant perinephric inflammatory changes. Urinalysis dark yellow specific gravity 1030 urine protein 4+ glucose 1+ blood 1+21-50 RBCs, 6-10 white cells hyaline cast 31.4. Differential diagnosis is ATN versus prerenal azotemia versus acute rejection. To test for acute rejection will send donor specific anti-HLA antibodies. Given that I do not know the cause of her original acute kidney injury and she has hematuria I will send serologies. We will continue giving IV fluids and monitoring. Further intervention will depend on original workup. Regarding immunosuppression would hold mycophenolate with nausea and vomiting can continue sirolimus will check sirolimus level and agree with increased dose of prednisone. Patient was on Calcitrol we will check PTH level and vitamin D level. Patient was on enalapril will hold now with acute kidney injury and blood pressure in the low side. Please note patient anion gap of 14. Patient seen and examined with aid of A/V equipment and the patient was examined by a nurse. The patient and family consented to telehealth. Plan IV fluids, repeat renal ultrasound, monitor for infection. Monitor for acute rejection. Repeat labs PDMP PDMP Reviewed: Not Reviewed Consult Attestations Medical Necessity Statement: Acute kidney injury Time Spent in Patient Care: Greater than 35 minutes (>than 50% of time spent in counselling and/or direct pt care on unit). Coding Level of Care Code Acute Code for [facility] Diagnoses Acute kidney injury N17.9
--- NOTE | 2025-03-18 09:33 | USCV_ITS ---
Sarah Sandy Age: 69 Gender: F : 1955 Exam Date: 03/18/2025 10:41 Ordering Phys: Luisito Argueta MD Technologist: RADHA Exam Location: [facility] [place] Indication: KHLOE- Renal transplant US Aortic Velocity @ SMA (cm/s) 54.1 RIGHT KIDNEY LEFT KIDNEY 4.5 Kidney Length (cm) FINDINGS [place] kidneys are atrophied. Renal transplant placed in [place]. 1.93 RAR of transplant kidney CONCLUSIONS Transplant within normal limits No hydronephrosis in Transplant Normal RI and PSV in renal artery transplant Normal renal vein Slightly elevated RAR 1.93 Atrophic [place] kidneys Aris Soler MD (Electronically Signed) Final Date: 18 March 2025 13:44 S
[2025-03-18 09:42] LABS: Hematocrit 41.4 % (36-47); Hemoglobin 13.40 g/dL (11.27-16.99); Mean Corpuscular HGB Conc 32.4 g/dL (30-55); Mean Corpuscular Hemoglobin 26.6 pg (27-33); Mean Corpuscular Volume 82.1 fl (85-98); Nucleated Red Blood Cells % 0 %; Platelet Count 120 10^3/cmm (157-399); Red Blood Count 5.04 10^6/uL (3.85-5.65); White Blood Count 25.88 10^3/uL (3.29-11.43)
[2025-03-18 10:04] LABS: Alanine Aminotransferase 68 U/L (0-33); Albumin Level 3.0 g/dL (3.5-5.2); Alkaline Phosphatase 80 U/L (35-105); Anion Gap 20.7 (5-19); Aspartate Amino Transferase 68 U/L (0-32); Blood Urea Nitrogen 35 mg/dL (8-23); Calcium 8.7 mg/dL (8.5-10.5); Carbon Dioxide 17 mmol/L (22-29); Chloride 100 mmol/L (98-107); Creatinine Clr Calc Pharmacy 9.1237; Globulin 3.1 g/dL (1.3-4.6); Glucose 289 mg/dL (65-115); Magnesium 1.9 mg/dL (1.7-2.3); Osmolality Calculated 293 mOsm/kg (285-295); Potassium 5.7 mmol/L (3.5-5.1); Sodium 132 mmol/L (136-145); Total Protein 6.1 g/dL (6.6-8.7)
[2025-03-18 11:21] LABS: Hepatitis B Surface Antigen Non-Reactive (Nonreactive)
[2025-03-18 11:44] LABS: Uric Acid 5.7 mg/dL (2.4-5.7)
--- NOTE | 2025-03-18 14:08 | PM.CONSULT ---
Providers/Reason For Consult Consulting Physician/Specialty*: General Surgery Reason for Consult*: Need for dialysis Attending Physician: Ria Gonzalez MD History of Present Illness History of Present Illness Sarah Sandy is a 69 year old female with history of kidney transplant who presents with possible rejection as manifested by increasing creatinine and elevated white count. I was requested to pull the dialysis catheter to be able to dialyze patient while she is awaiting transfer to higher level of care for transplant evaluation. Review of Systems General: Reports: 10 or more systems reviewed and unremarkable except in HPI and below Medications/Allergies Home Medications ?Medication ?Instructions ?Recorded ?Confirmed ?Last Taken ?Type calcitriol 0.25 mcg capsule 0.25 mcg PO DAILY 03/18/25 03/18/25 03/17/25 08:00 History enalapril maleate 5 mg tablet 5 mg PO DAILY 03/18/25 03/18/25 03/17/25 08:00 History linagliptin 5 mg tablet 5 mg PO DAILY 03/18/25 03/18/25 03/17/25 08:00 History mycophenolate mofetil 500 mg tablet 500 mg PO BID 03/18/25 03/18/25 03/17/25 08:00 History prednisone 5 mg tablet 5 mg PO DAILY 03/18/25 03/18/25 03/17/25 08:00 History sirolimus 1 mg tablet 1 mg PO DAILY 03/18/25 03/18/25 03/17/25 08:00 History Allergies Allergy/AdvReac Type Severity Reaction Status Date / Time No Known Allergies Allergy Verified 03/18/25 02:42 Current Medications Generic Name Dose Route Start Last Admin Trade Name Freq PRN Reason Stop Dose Admin Heparin Sodium (Porcine) 5,000 unit 03/18/25 00:54 03/18/25 11:28 Heparin 5,000 Unit/Ml Inj 1 Ml SUBCUT Not Given Q12H JOSE Sodium Chloride 1,000 mls @ 60 mls/hr 03/18/25 00:54 03/18/25 11:28 Sodium Chloride 0.9% IV 60 mls/hr .[id number] JOSE Administration Methylprednisolone Sodium 258 mls @ 258 mls/hr 03/18/25 10:30 03/18/25 13:23 Succinate 500 mg/ Sodium IV Infused Chloride DAILY JOSE Infusion Insulin Human Lispro 0 unit 03/18/25 08:00 03/18/25 11:29 Insulin Lispro 100 Unit/1 Ml SUBCUT 8 unit WM&BEDTIME JOSE Administration Protocol Ondansetron HCl 4 mg 03/18/25 00:54 03/18/25 11:37 Ondansetron 2 Mg/Ml Sdv 2 Ml IVP 4 mg Q8H PRN Administration vomiting, or N/V if npo PFSH Acute PFSH: Social History (Updated 03/18/25 @ 02:50 by Miracle Jones RN) Smoking and tobacco/nicotine status: never used tobacco/nicotine Alcohol intake: current Alcohol intake frequency: holidays/special occasions only Substance/Drug Use: never Additional 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 History of recent travel: Yes (from [place] ~2weeks ago per patient) Carrie/Scientology: Anabaptism Vitals/I&O/Wt Last Vital Signs Temp 98.2 F 03/18/25 11:12 Pulse 59 L 03/18/25 11:12 Resp 18 03/18/25 11:12 BP 158/69 03/18/25 11:12 Pulse Ox 92 03/18/25 11:12 O2 Del Method Room Air 03/18/25 11:12 03/17/25 03/18/25 03/18/25 22:59 06:59 14:59 Intake Total 500 / 500 1240 / 1740 1378 / 1378 Balance 500 / 500 1240 / 1740 1378 / 1378 Weight last 48 hrs Weight 137 lb 8 oz Weight 137 lb 8 oz Weight 123 lb 4 oz Weight 123 lb 7.342 oz Physical Exam GI: OTHER: Abdomen soft nontender nondistended in the right hemiabdomen there is a surgical incision from previous transplant. I evaluated bilateral groins both appear healthy left groin ultrasound shows a patent femoral vein Data 03/18/25 09:16 03/18/25 09:16 Micro: Microbiology 03/18/25 13:32 Blood Culture - Preliminary Blood SPECIMEN COLLECTED 03/18/25 13:25 Blood Culture - Preliminary Blood SPECIMEN COLLECTED A&P Assessment and plan (1) Renal transplant recipient: (2) Anuria and oliguria: Plan After complete history physical examination and review of all available clinical data I agree that the patient will require temporarily dialysis catheter for initiation of dialysis while she is being worked up for possible rejection of her graft. I discussed the risks of bleeding infection injury to surrounding structures need for additional interventions, catheter malfunction, infection, need for tunneled dialysis catheter, injury to the surrounding blood vessels, injury to small bowel. She shows understanding agrees to proceed. Case was also discussed with family member, all discussion was done in British as this is the primary language of the patient. At 20 cm double-lumen dialysis catheter was placed in the left femoral vein and is ready to be used for dialysis. PDMP PDMP Reviewed: Not Reviewed Coding Level of Care Code Acute Code for Chg Fwd Diagnoses Renal transplant recipient Z94.0 Anuria and oliguria R34
--- NOTE | 2025-03-18 14:11 | PM.ACPR ---
Procedure/Consent Time out: Time Out Performed: Yes Consent: Consent for Procedure: Consent obtained from other (indicate) (brother and case discussed with patient also), Risks & Benefits reviewed and Agrees to proceed with procedure Procedure Narrative: The patient in a supine position the left groin was prepped and draped in the usual sterile fashion. I had previously interrogated the left femoral vein and appear patent. This was chosen as the right femoral vein is not a good candidate for access as the patient has a right renal graft that is likely connected to the right iliac. A timeout was conducted. The right femoral vein was identified with ultrasound and local and anesthesia was infiltrated. The vein was then cannulated with an 18-gauge needle and wire was advanced through the needle into the vein. The needle was removed leaving the wire in place. Localization of the wire was verified with ultrasound. I then make a 0.5 cm incision at the level of the wire insertion site in the left groin. The tract was dilated with serial sizes of dilator and then a 20 cm dual-lumen dialysis catheter was advanced over the wire. The wire was removed leaving the catheter in place. The catheter was tested and was working well with good flows in the venous and arterial lumen. The catheter was capped. I then fixed the catheter to the skin using #3-0 silk provided in the kit. A Biopatch and sterile dressing was applied. At the end of the procedure the counts were correct the patient tolerated well the procedure remained in the medical unit in stable condition Acute Procedures Epistaxis Control: Time out performed: Yes
--- NOTE | 2025-03-18 14:50 | P.PN_ITS ---
Subjective 2 Subjective: Seen this morning. Morning labs are still pending. Morning labs were ordered and reviewed later on. Sodium 132, potassium 5.7 Creatinine 4.8 Discussed with nephrology over the phone several times this morning. Also discussed with patient's brother over the phone regarding her situation. She states that she is from [place] and has brought her medications in a pill organizer. Her actual medication bottles are at home. She was supposed to fly back to [place] last Tuesday however became acutely ill requiring a pacemaker eventually requiring transfer to [facility] in [place]. She was discharged from there yesterday and ended up in the hospital here because of lower abdominal pain and that she cannot urinate. Discussed with nephrology that patient will likely need dialysis at this time. Unsure of this may be acute rejection. Nephrology recommends transfer to transplant center which I agree with. We are unable to do kidney biopsy here or get donor antibody levels. Sirolimus level will also take days to return. We will stop mycophenolate and continue on sirolimus for now. We have requested dialysis catheter placement after talking to general surgery. I was able to speak to [facility] transfer line and discussed with transplant financial aid director and hospitalist. Renal Dopplers are pending from this morning. Transferred nephrology states is unlikely that patient has acute rejection secondary to missing her tablets for 2 days. We requested records from [facility]. Unsure if patient received IV contrast there. She has been accepted to [facility] medicine service under Dr. Recinos's care. Eustace is encouraged us to reach out to [facility] since it will be a long delay before bed becomes available. Dr. Shah from nephrology has been informed of the above. We will be starting dialysis at this time meanwhile. Patient is laying in bed. Appears comfortable for the most part. Appears deconditioned and weak. Vitals/I&O/Wt Last Vital Signs Temp 98.2 F 03/18/25 11:12 Pulse 59 L 03/18/25 11:12 Resp 18 03/18/25 11:12 BP 158/69 03/18/25 11:12 Pulse Ox 92 03/18/25 11:12 O2 Del Method Room Air 03/18/25 11:12 03/17/25 03/18/25 03/18/25 22:59 06:59 14:59 Intake Total 500 / 500 1240 / 1740 1378 / 1378 Balance 500 / 500 1240 / 1740 1378 / 1378 Weight last 48 hrs Weight 62.369 kg Weight 62.369 kg Weight 55.905 kg Weight 56 kg Physical Exam 2 Narrative: General well-developed well-nourished female in no acute cardiopulmonary distress, appears deconditioned and weak. CV regular rate and rhythm Lungs clear to auscultation bilaterally Abdomen positive bowel tones soft her right lower quadrant under transplant kidney scar is not hot or inflamed. She is minimally tender. No apparent guarding noted. Calves no tenderness cords pretrip edema Data 03/18/25 09:16 03/18/25 09:16 Micro: Microbiology 03/18/25 13:32 Blood Culture - Preliminary Blood SPECIMEN COLLECTED 03/18/25 13:25 Blood Culture - Preliminary Blood SPECIMEN COLLECTED A&P Assessment and plan (1) Anuria and oliguria: Patient be given fluid boluses and furosemide to try and convert this to an uric renal failure to nonoliguric renal failure (2) Acute kidney injury: Cannot exclude rejection. Per recommendation from Dr. Argueta we gave [address] 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 #Junctional bradycardia status post pacemaker placement #Anuria and oliguria #Hyperkalemia #Metabolic acidosis secondary to renal failure #Acute renal failure #Leukocytosis ? Patient is on room air at this time Place Nair catheter to calculate accurate urine output ? Urinalysis did show 4+ protein on admission ? Hepatitis B panel ordered ? AST LT 68, 68, ? Potassium 5.7, sodium 132, creatinine 4.8 today. All labs are worsening at this time. ? Leukocytosis 25,000 most likely reactive versus UTI versus other source of infection. Questionable emphysematous pyelitis? ? Renal ultrasound does not show any thrombosis or hydronephrosis and transplant ? I will hold BOB inhibitor at this time enalapril ? Hold mycophenolate ? Continuing [place] steroid Solu-Medrol 500 IV daily ? Continue sirolimus 1 mg daily ? Check sirolimus levels ? Check complement levels, ?, ADDI screen, C-reactive protein - Unable to check for donor antibodies ? Patient likely requires a kidney biopsy however we do not have capability of doing that at this time. ? Patient has been accepted for transfer to [facility]. ? I have added cefepime for empiric coverage. We will renally dose. Discussed with pharmacy. ? Continue heparin SQ twice daily ? Plan for dialysis at this time ? I will continue to attempt transfer to higher level of care Full code Due to prophylaxis: Heparin SQ twice daily PDMP PDMP Reviewed: Not Reviewed Attestations 2 Medical Necessity Statement*: Patient admitted to the hospital with acute renal failure and uric and will require greater than 2 midnights in hospital Diagnoses Anuria and oliguria R34 Acute kidney injury N17.9 Renal transplant recipient Z94.0 Junctional bradycardia R00.1 Acute renal failure N17.9 High anion gap metabolic acidosis E87.29 Leukocytosis D72.829 Thrombocytopenia D69.6 Hyperkalemia E87.5
[2025-03-18] MEDS: heparin 5,000 unit/mL INJ 1 mL 2000 UNIT IVP (19:20)
[2025-03-18] MEDS: heparin, porcine 1,000 unit/mL INJ 10 mL 10000 UNIT HE (20:50)
[2025-03-18 21:42] LABS: Alanine Aminotransferase 73 U/L (0-33); Albumin Level 3.0 g/dL (3.5-5.2); Alkaline Phosphatase 88 U/L (35-105); Aspartate Amino Transferase 65 U/L (0-32); Blood Urea Nitrogen 25 mg/dL (8-23); Calcium 8.7 mg/dL (8.5-10.5); Carbon Dioxide 17 mmol/L (22-29); Chloride 101 mmol/L (98-107); Creatinine Clr Calc Pharmacy 10.9484; Globulin 3.9 g/dL (1.3-4.6); Glucose 200 mg/dL (65-115); Osmolality Calculated 292 mOsm/kg (285-295); Sodium 136 mmol/L (136-145); Total Protein 6.9 g/dL (6.6-8.7)
[2025-03-18 21:45] LABS: Anion Gap 22.3 (5-19); Potassium 4.3 mmol/L (3.5-5.1)
[2025-03-19] MEDS: heparin 5,000 unit/mL INJ 1 mL 5000 UNIT SUBCUT ×2 (00:53→14:31)
[2025-03-19 01:14] VITALS: BP 160/73; PULSE 59; RESP 15; TEMP 36.9; O2SAT 91
[2025-03-19 04:29] LABS: Hematocrit 40.1 % (36-47); Hemoglobin 13.00 g/dL (11.27-16.99); Mean Corpuscular HGB Conc 32.4 g/dL (30-55); Mean Corpuscular Hemoglobin 26.2 pg (27-33); Mean Corpuscular Volume 80.7 fl (85-98); Nucleated Red Blood Cells % 0 %; Platelet Count 107 10^3/cmm (157-399); Red Blood Count 4.97 10^6/uL (3.85-5.65); White Blood Count 27.09 10^3/uL (3.29-11.43)
[2025-03-19 04:51] LABS: Anion Gap 18.0 (5-19); Blood Urea Nitrogen 38 mg/dL (8-23); Calcium 8.0 mg/dL (8.5-10.5); Carbon Dioxide 19 mmol/L (22-29); Chloride 103 mmol/L (98-107); Creatinine Clr Calc Pharmacy 8.8346; Glucose 154 mg/dL (65-115); Osmolality Calculated 294 mOsm/kg (285-295); Potassium 4.0 mmol/L (3.5-5.1); Sodium 136 mmol/L (136-145)
[2025-03-19 04:52] LABS: Calcium 7.8 mg/dL (8.5-10.5)
[2025-03-19 05:04] VITALS: BP 165/75; PULSE 60; RESP 14; TEMP 36.7; O2SAT 93
[2025-03-19 08:09] VITALS: BP 166/83; PULSE 60; RESP 18; TEMP 36.4; O2SAT 93
--- NOTE | 2025-03-19 08:17 | PM.PN ---
Subjective Subjective: The patient was seen and examined. She is still an uric has minimal blood in Nair. She had nausea but is now feeling better. She has no chest pain decreased pain by her right kidney. No headaches no hearing nursing problems no shortness of breath Medications: Reviewed: Yes Medication Review Details: Current Medications Acetaminophen (Acetaminophen 325 Mg Tablet) 650 mg PO Q6H PRN PRN Reason: Mild/Mod Pain Or Temp >/= 101 Cefepime HCl (Cefepime 1,000 Mg Sdv) 1,000 mg IVP Q24H JOSE; Protocol Glucagon (Glucagon 1 Mg/Ml Kit 1 Ml) 1 mg IM ONCE PRN; Protocol PRN Reason: Adult Acute Hypoglycemia Nursing Prot. Heparin Sodium (Porcine) (Heparin 5,000 Unit/Ml Inj 1 Ml) 5,000 unit SUBCUT Q12H JOSE Last Admin: 03/19/25 00:53 Dose: 5,000 unit Sodium Chloride (Sodium Chloride 0.9%) 1,000 mls @ 60 mls/hr IV .[id number] [facility] Last Admin: 03/19/25 03:48 Dose: 60 mls/hr Dextrose (D5w) 500 mls @ 0 mls/hr IV ONCE PRN; Protocol PRN Reason: Adult Acute Hypoglycemia Prot Dextrose (D10w) 125 mls @ 750 mls/hr IV PRN PRN; Protocol PRN Reason: Adult Acute Hypoglycemia Nursing Protocol Dextrose (D10w) 250 mls @ 1,000 mls/hr IV PRN PRN; Protocol PRN Reason: Adult Acute Hypoglycemia Nursing Protocol Methylprednisolone Sodium Succinate 500 mg/ Sodium Chloride 258 mls @ 258 mls/hr IV DAILY [facility] Last Infusion: 03/18/25 13:23 Dose: Infused Insulin Human Lispro (Insulin Lispro 100 Unit/1 Ml) 0 unit SUBCUT WM&BEDTIME JOSE; Protocol Last Admin: 03/18/25 21:50 Dose: 10 unit Morphine Sulfate (Morphine 4 Mg/Ml Sdv 1 Ml) 2 mg IVP Q4H PRN PRN Reason: SEVERE PAIN Sirolimus 1 each PO DAILY JOSE Last Admin: 03/18/25 17:29 Dose: 1 each Ondansetron HCl (Ondansetron 2 Mg/Ml Sdv 2 Ml) 4 mg IVP Q8H PRN PRN Reason: vomiting, or N/V if npo Last Admin: 03/18/25 11:37 Dose: 4 mg Oxycodone HCl (Oxycodone 5 Mg Ir Tab/Cap) 5 mg PO Q6H PRN PRN Reason: SEVERE PAIN Vitals/I&O/Wt Last Vital Signs Temp 97.5 F L 03/19/25 08:09 Pulse 60 03/19/25 08:09 Resp 18 03/19/25 08:09 BP 166/83 03/19/25 08:09 Pulse Ox 93 03/19/25 08:09 O2 Del Method Room Air 03/19/25 08:09 03/18/25 03/19/25 03/19/25 22:59 06:59 14:59 Intake Total 1980 / 3358 980 / 4338 Output Total 1500 / 1500 1 / 1501 Balance 480 / 1858 979 / 2837 Weight last 48 hrs Weight 63.049 kg Weight 63.5 kg Weight 62.369 kg Weight 62.369 kg Weight 55.905 kg Weight 56 kg Physical Exam Narrative: The patient is overweight lying comfortably in bed no apparent distress. Vital signs noted. Blood pressure stable heart rate 60 HEENT normocephalic atraumatic neck is supple no JVP no carotid bruits Lungs are clear to auscultation Heart paced rhythm positive S1-S2 Abdomen is soft positive right lower quadrant tenderness has improved Right femoral dialysis catheter, positive Nair catheter Extremities no edema. Neuro awake alert oriented x 3. Urinary Catheter Management: Nair: Cath Placed During This Visit: yes Reason for Continuing Indwelling Catheter: Other Urinary Catheter Date of Insertion: 03/18/25 Urinary Catheter Time of Insertion: 18:00 Data 03/19/25 03:49 03/19/25 03:49 Micro: Microbiology 03/18/25 13:32 Blood Culture - Preliminary Blood SPECIMEN COLLECTED 03/18/25 13:25 Blood Culture - Preliminary Blood SPECIMEN COLLECTED A&P Assessment and plan (1) Acute kidney injury: 69-year-old lady history of living renal transplant in 2006. Patient's baseline creatinine is 1.1 mg/dL. The patient presented on March 14, 2025 with a creatinine of 1.1 and bradycardia. The patient had a temporary pacemaker placed and then a permanent pacemaker placed and was discharged on March 16, 2025. The patient presented yesterday with oligoanuric renal failure. 1. Acute kidney injury abdominal CT noted severely atrophic [place] kidneys right lower quadrant renal transplant emphysematous pyelitis is a questionable. No hydronephrosis or significant perinephric inflammatory changes. Urinalysis dark yellow specific gravity 1030 urine protein 4+ glucose 1+ blood 1+21-50 RBCs, 6-10 white cells hyaline cast 31.4. Renal ultrasound reviewed:- Transplant within normal limits No hydronephrosis in Transplant Normal RI and PSV in renal artery transplant Normal renal vein Differential diagnosis is ATN versus renal vein thrombosis. However renal vein fibrosis less likely has not seen a renal duplex. The patient is anuric making prerenal azotemia less likely. I am still concerned about acute rejection. To test for acute rejection will send donor specific anti-HLA antibodies. I started the patient on high-dose Solu-Medrol. I started dialysis yesterday. The patient would benefit from a renal biopsy. 1 can consider a nuclear perfusion renal scan. If the patient has urine please send a urinalysis. Regarding immunosuppression would hold mycophenolate with nausea and vomiting can continue sirolimus will check sirolimus level and agree with increased dose of steroids. Patient was on enalapril will hold now with acute kidney injury and blood pressure in the low side. Will monitor blood pressure. No BOB in addition. Replace vitamin D. Would hold Calcitrol at this time. Patient seen and examined with aid of A/V equipment and the patient was examined by a nurse. The patient and family consented to telehealth. Plan See above. Plan steroids for possible acute rejection. Dialysis. Awaiting urine studies. PDMP PDMP Reviewed: Not Reviewed Attestations Medical Necessity Statement*: Anuric KHLOE Time Spent in Patient Care: 16 - 35 minutes (>than 50% of time spent in counselling and/or direct pt care on unit). Coding Level of Care Code Acute Code for [facility] Diagnoses Acute kidney injury N17.9
[2025-03-19] MEDS: ondansetron 2 mg/ML SDV 2 mL 4 MG IVP (08:30)
[2025-03-19 08:35] LABS: Anti-Double Strand DNA AB 1 IU/mL
--- NOTE | 2025-03-19 10:51 | PC.CHAP ---
Pastoral Care Encounter/Spiritual Assessment Type of Contact [] Declined flaker tender visit [] Patient/Family/Request visit [] Outpatient visit [] Follow-up visit [] Physician referral [] Code/Alert [x] Routine visit [] Staff referral [] Actively dying [] Patient sleeping [] Family support [] [] Out of room [] Palliative care [] [] Receiving care in room [] Pre-surgical visit [] Trauma [] Long length of stay [] ICU visit [x] Other:Patient speaks no Somali. Relational/Emotional Strength [x] Patient feels connected with others/family/visitors/staff [] Distress [] Loneliness/isolation [] Abandonment Spirituality of Patient [x] Person of Carrie [] Attends Sabianism of their Carrie [x] Believes in Prayer [] Reads Bible or Shinto materials [] There are Spiritual issues to be addressed Cashier Host/Hostess Interventions [x] Prayer [] Active listening [] Non-anxious presence [] Spiritual/emotional support [] Crisis/trauma care [] Spiritual counseling [] Bereavement support [] Provided bereavement packet [] Provided Bible/devotional materials [] Provided toy/stuffed animal, coloring book to patient or family member [] Provided Communion [] Anointing/Dodson [] Salvation [x] Completed spiritual assessment [] Other: Impact on Illness or Injury [] Angry [] Fearful [] Anxious [] Often cries [] Exhaustion [] Unable to work [] Unable to attend restorationism [] Unable to walk/stand [] Unable to read [] Unable to drive [] Unable to eat/drink [] Unable to sleep [] Unable to be with family [] Patient intubated [] Other: Summary Time spent with patient 5 min
--- NOTE | 2025-03-19 12:10 | USCV_ITS ---
Sarah Sandy Age: 69 Gender: F : 1955 Exam Date: 03/19/2025 15:08 Ordering Phys: Ria Gonzalez MD Technologist: Exam Location: [facility] Indication: post angram Findings normal vascular structure normal blood flow in the crimper operator cfv. no psuedo anuer Conclusions No pseudoaneurysm PHOTOGRAPHY TEACHER and CFV are patent Aris Soler MD (Electronically Signed) Final Date: 20 March 2025 16:56 S
--- NOTE | 2025-03-19 12:10 | CTR_ITS ---
PROCEDURE INFORMATION: Exam: CT Abdomen And Pelvis Without Contrast Exam date and time: 03/19/2025 2:50 PM Age: 69 years old Clinical indication: Other: Anuric; Prior surgery; Surgery date: 6+ months; Surgery type: Renal transplant 2006; Additional info: Anuric, transplanted kidney, recent pacemaker, look for trauma at right TECHNIQUE: Imaging protocol: Computed tomography of the abdomen and pelvis without contrast. Radiation optimization: All CT scans at this facility use at least one of these dose optimization techniques: automated exposure control; mA and/or kV adjustment per patient size (includes targeted exams where dose is matched to clinical indication); or iterative reconstruction. COMPARISON: CT kidney stone [id number] 03/17/2025 7:07 PM RADIATION DOSE METRICS: Total DLP (mGy-cm): 526.33 FINDINGS: Tubes, catheters and devices: There is a pacemaker lead in the right ventricle. Pleural spaces: There are small bilateral pleural effusions. Diaphragm: There is a small hiatal hernia. Liver: Normal. No mass. Gallbladder and biliary ducts: Trace pericholecystic fluid around the fundal region of the gallbladder. Pancreas: Normal. No ductal dilation. Spleen: Normal. No splenomegaly. Adrenal glands: Normal. No mass. Kidneys and ureters: Severe atrophy of apache kidneys. Nonobstructing small calculus in the left kidney is unchanged. Redemonstration of right lower quadrant transplant kidney with several air bubbles in the collecting system, slightly more numerous than the last exam. Stomach and bowel: Unremarkable. No obstruction. No mucosal thickening. Appendix: No evidence of appendicitis. Intraperitoneal space: Unremarkable. No free air. No significant fluid collection. Vasculature: Unremarkable. No abdominal aortic aneurysm. Lymph nodes: Unremarkable. No enlarged lymph nodes. Urinary bladder: Nair catheter in bladder lumen. Reproductive: Multiple calcified uterine fibroids. Bones/joints: Unremarkable. No acute fracture. Soft tissues: Stable small periumbilical fat filled hernia. Redemonstration of anterior pelvic wall ventral hernia containing a small amount of small intestine. No obstruction or inflammatory changes. CT/CT abdomen pelvis wo con [id number] IMPRESSION: 1. Gas in the transplant right lower quadrant kidney collecting system could be secondary to recent placement of a Nair catheter. Differential diagnosis also includes emphysematous pyelitis. 2. Findings suspicious for acute cholecystitis. 3. Other findings as above.
--- NOTE | 2025-03-19 12:11 | USCV_ITS ---
Sarah Sandy Age: 69 Gender: F : 1955 Exam Date: 03/19/2025 14:56 Ordering Phys: Ria Gonzalez MD Technologist: Exam Location: [facility] [place], [place] Indication: post cath BP: / HR: Rhythm: Sinus Technical Quality: Very technically difficult study MEASUREMENTS (Male / Female) Normal Values FINDINGS Left Ventricle Right Ventricle Right Atrium Left Atrium Mitral Valve Aortic Valve Tricuspid Valve Pulmonic Valve Pericardium Aorta IVC CONCLUSIONS Limited images obtained because of poor ultrasonic windows LV systolic function is normal with EF of 60-65% RV function is normal Pacemaker lead is seen Jose Alfredo Shah MD (Electronically Signed) Final Date: 20 March 2025 09:19 S
[2025-03-19 12:24] VITALS: BP 138/65; PULSE 61; RESP 17; TEMP 36.5; O2SAT 94
--- NOTE | 2025-03-19 14:27 | PM.TDS ---
Transfer Summary Providers Date of Admission: 03/18/25 00:00 Date of Discharge/Transfer: 03/19/25 Attending Provider at Admission: Aris Jeffrey MD Attending Provider at Transfer: Ria Gonzalez MD Transfer Plans: Anticipated date of transfer: 03/19/25. Receiving Facility: [facility]. Receiving Provider: Dr. Hernandez. Diagnoses at Discharge Discharge Diagnosis (1) Acute kidney injury: Status: Acute Reason for Visit Reason for Visit blood sugar Hospital Course Hospital Course Patient was mated to the hospital for not being able to urinate. She recently had a pacemaker placed at [facility]. She was discharged from that hospital on 03/16 and presented to [facility] on 629. Her creatinine apparently was 0.6 at [facility] which I was informed by [place] transplant doctor as she was able to access records from [facility]. We are yet to receive records from [facility] regarding her hospitalization. We requested multiple times. Patient's creatinine on admission this time was 3.4. It has been trending up. Patient became hyperkalemic. Dialysis catheter was placed in left groin and dialysis was started. First session was done 03/18. Patient has been completely anuric. She continues to complain of pain in right lower quadrant transplanted kidney site. Right groin on examination appears unremarkable with no fluctuance or evidence of hematoma. Patient's workup has been ordered by nephrology however none of which will be available for a few days as everything is a send out test. She has been continued on sirolimus. For the slightest chance that she may be having acute rejection Solu-Medrol 500 IV daily was ordered. Renal Doppler has been negative for renal vein thrombosis. Recommendation made to transfer patient to higher level of care at a transplant center. Patient was accepted by [facility] and I have spoken to the transplant firearms assembly supervisor there several times regarding patient updates. There is no bed available. [facility] suggested we call [facility]. [facility] was contacted and patient has been accepted there by hospitalist team. Nephrology will be on consult. Patient will need a renal biopsy at this point. We did repeat CT abdomen pelvis today which has resulted showing possible acute cholecystitis. I have stopped patient's cefepime and switch her to meropenem. These above findings were not present on CT from 2 days prior. Transplanted kidney appears okay as per radiologist. I discussed with radiologist myself. Arterial duplex right groin and echo cardiac have been ordered. Studies complete however results are pending at this time. Patient is on their way to slu at this time. I will call slu and update them of this new finding. Physical Exam Narrative: General well-developed well-nourished female in no acute cardiopulmonary distress, appears deconditioned and weak. CV regular rate and rhythm Lungs clear to auscultation bilaterally Abdomen positive bowel tones soft her right lower quadrant under transplant kidney scar is not hot or inflamed. Minimally tender to palpation around right lower quadrant. No apparent guarding noted. Right upper quadrant nontender soft. No other epigastric pain. Calves no tenderness cords pretrip edema Urinary Catheter Management: Nair: Cath Placed During This Visit: yes Reason for Continuing Indwelling Catheter: Other Urinary Catheter Date of Insertion: 03/18/25 Urinary Catheter Time of Insertion: 18:00 TS Data Studies Completed and Pending Pending at discharge Category Date Time Status CT abdomen pelvis wo con [id number] Stat Cat Scan 03/19/25 12:10 Ordered ADDI Profile Rheumatology Routine Lab 03/19/25 10:22 Received ADDI Screen w/ Reflex Routine Lab 03/18/25 13:25 Received Anti-Neutrophil Cytoplasmic AB Routine Lab 03/18/25 13:25 Received BK Virus DNA, QL Real Time PCR Stat Lab 03/19/25 09:54 Ordered Basic Metabolic Panel AM LABS Lab 03/20/25 04:00 Ordered Basic Metabolic Panel AM LABS Lab 03/21/25 04:00 Ordered Blood Culture Stat Lab 03/18/25 13:32 Results Complete Blood Count w/Auto Stat Lab 03/18/25 09:30 Ordered Comprehensive Metabolic Panel AM LABS Lab 03/20/25 04:00 Ordered Comprehensive Metabolic Panel AM LABS Lab 03/21/25 04:00 Ordered Comprehensive Metabolic Panel AM LABS Lab 03/22/25 04:00 Ordered Glomerular Basement AB IGG Routine Lab 03/18/25 13:25 Received Magnesium AM LABS Lab 03/20/25 04:00 Ordered Magnesium AM LABS Lab 03/21/25 04:00 Ordered Magnesium AM LABS Lab 03/22/25 04:00 Ordered Miscellaneous Test Stat Lab 03/18/25 09:30 Received Phosphorus AM LABS Lab 03/20/25 04:00 Ordered Phosphorus AM LABS Lab 03/21/25 04:00 Ordered Phosphorus AM LABS Lab 03/22/25 04:00 Ordered Rapamycin / Sirolimus DAILY Lab 03/18/25 13:25 Received Rapamycin / Sirolimus DAILY Lab 03/19/25 10:22 Received Tacrolimus, LS/MS/MS Routine Lab 03/18/25 09:16 Received Urinalysis Stat Lab 03/17/25 18:38 Uncollected Urinalysis and Microscopic Routine Lab 03/19/25 01:15 Ordered Urine BK Virus DNA Quant Routine Lab 03/19/25 09:54 Uncollected Urine Creatinine Routine Lab 03/19/25 01:15 Ordered Urine Culture Stat Lab 03/19/25 01:15 Ordered Urine Microalbumin Creat Ratio Routine Lab 03/19/25 01:15 Ordered Urine Protein Random Routine Lab 03/19/25 01:15 Ordered Urine Random Lytes Routine Lab 03/19/25 01:15 Ordered CV. echo complete* [id number] Stat Ultrasound 03/19/25 12:11 Ordered US arterial duplex groin RT [CV arterial dup groin RT Ultrasound 03/19/25 12:10 Ordered [id number]] Stat Completed Studies During Hospitalization Category Date Time Status CT kidney stone [id number] Stat Cat Scan 03/17/25 18:39 Completed US renal doppler [CV renal doppler [id number]] Routine Ultrasound 03/18/25 09:33 Completed Laboratory Last Values WBC 27.09 10^3/uL (3.29-11.43) H 03/19/25 03:49 RBC 4.97 10^6/uL (3.85-5.65) 03/19/25 03:49 Hgb 13.00 g/dL (11.27-16.99) 03/19/25 03:49 Hct 40.1 % (36-47) 03/19/25 03:49 MCV 80.7 fl (85-98) L 03/19/25 03:49 MCH 26.2 pg (27-33) L 03/19/25 03:49 MCHC 32.4 g/dL (30-55) 03/19/25 03:49 RDW 15.5 % (12.1-15.1) H 03/19/25 03:49 Plt Count 107 10^3/cmm (157-399) L 03/19/25 03:49 MPV 12.0 fL (7.4-10.4) H 03/19/25 03:49 Neut % (Auto) 91.3 % 03/19/25 03:49 Lymph % (Auto) 2.9 % 03/19/25 03:49 Teller % (Auto) 2.6 % 03/19/25 03:49 Eos % (Auto) 0.0 % 03/19/25 03:49 Baso % (Auto) 0.1 % 03/19/25 03:49 Neut # (Auto) 24.75 10^3/uL (1.8-7.7) H 03/19/25 03:49 Lymph # (Auto) 0.8 10^3/uL (0.8-4.8) 03/19/25 03:49 Teller # (Auto) 0.7 10^3/uL (0.2-0.9) 03/19/25 03:49 Eos # (Auto) 0.0 10^3/uL (0.0-0.8) 03/19/25 03:49 Baso # (Auto) 0.0 10^3/uL (0.0-0.1) 03/19/25 03:49 Nucleated RBC % (auto) 0 % 03/19/25 03:49 Nucleated RBCs # 0.0 /100WBC 03/19/25 03:49 Sodium 136 mmol/L (136-145) 03/19/25 03:49 Potassium 4.0 mmol/L (3.5-5.1) 03/19/25 03:49 Chloride 103 mmol/L (98-107) 03/19/25 03:49 Carbon Dioxide 19 mmol/L (22-29) L 03/19/25 03:49 Anion Gap 18.0 (5-19) 03/19/25 03:49 BUN 38 mg/dL (8-23) H 03/19/25 03:49 Creatinine 5.0 mg/dL (0.5-0.9) H 03/19/25 03:49 GFR Calculation 8.6 mL/min (90-130) L 03/19/25 03:49 Glucose 154 mg/dL (65-115) H 03/19/25 03:49 POC Glucose 143 mg/dL (70-110) H 03/19/25 12:31 Calculated Osmolality 294 mOsm/kg (285-295) 03/19/25 03:49 Lactic Acid 1.5 mmol/L (0.5-2.2) 03/17/25 19:04 Uric Acid 5.7 mg/dL (2.4-5.7) 03/18/25 09:16 Calcium 8.0 mg/dL (8.5-10.5) L 03/19/25 03:49 Phosphorus 5.6 mg/dL (2.5-4.5) H 03/18/25 09:16 Magnesium 1.9 mg/dL (1.7-2.3) 03/18/25 09:16 Total Bilirubin 0.6 mg/dL (0.15-1.2) 03/18/25 21:12 AST 65 U/L (0-32) H 03/18/25 21:12 ALT 73 U/L (0-33) H 03/18/25 21:12 Alkaline Phosphatase 88 U/L (35-105) 03/18/25 21:12 Creatine Kinase 48 U/L (26-192) 03/19/25 03:49 C-Reactive Protein 15.2 mg/L (0.0-4.9) H 03/17/25 18:16 Total Protein 6.9 g/dL (6.6-8.7) 03/18/25 21:12 Albumin 3.0 g/dL (3.5-5.2) L 03/18/25 21:12 Globulin 3.9 g/dL (1.3-4.6) 03/18/25 21:12 25-OH Vitamin D Total 10 ng/mL (30-100) L 03/19/25 03:49 PTH Intact 141.1 pg/mL (15-65) H 03/19/25 03:49 Calcium (PTH Intact) 7.8 mg/dL (8.5-10.5) L 03/19/25 03:49 Rapamycin Cancelled 03/18/25 13:25 Anti-ds DNA IgG Ab 1 IU/mL 03/18/25 13:25 Complement C3 135 mg/dL (90-180) 03/19/25 03:49 Complement C4 22 mg/dL (10-40) 03/19/25 03:49 Hep Bs Antigen Non-reactive (Nonreactive) 03/18/25 09:16 Hep Bs Antibody < 3.5 (11.5-1000) L 03/18/25 09:16 Hepatitis C Antibody Cancelled 03/18/25 09:16 Hepatitis C Antibody Non-reactive (Nonreactive) 03/18/25 09:16 Anti-Streptolysin O Ab 42 IU/mL (<200) 03/18/25 13:25 Radiology Impressions Abdomen/Pelvis CT 03/17/25 18:39 IMPRESSION: 1. Right lower quadrant renal transplant. Small gas in the renal collecting system may be related to reflux in the setting of recent urinary bladder instrumentation. Emphysematous pyelitis is also a possibility. 2. Other nonemergent findings above. COMMENTS: Consistent with the [employer]'s Incidental Findings Committee white paper (J Am Zaria Radiol 2017): Any incidental adrenal lesion less than 1 cm is likely benign. No follow-up imaging is recommended for these lesions per consensus recommendations based on imaging criteria. Further lab evaluation could be pursued if warranted based on clinical findings. Recent Clincial Data Last Vital Signs Temp 97.7 F 03/19/25 12:24 Pulse 61 03/19/25 12:24 Resp 17 03/19/25 12:24 BP 138/65 03/19/25 12:24 Pulse Ox 94 03/19/25 12:24 O2 Del Method Nasal Cannula 03/19/25 12:24 O2 Flow Rate 2 03/19/25 12:24 Vital Signs Temp Pulse Resp BP Pulse Ox O2 Del Method O2 Flow Rate 03/19/25 12:24 97.7 F 61 17 138/65 94 Nasal Cannula 2 03/19/25 08:09 97.5 F L 60 18 166/83 93 Room Air 03/19/25 05:04 98.1 F 60 14 165/75 93 Intake & Output/Weight 03/17/25 03/18/25 03/19/25 03/20/25 06:59 06:59 06:59 06:59 Intake Total 1740 / 1740 4338 / 4338 1080 / 1080 Output Total 1501 / 1501 Balance 1740 / 1740 2837 / 2837 1080 / 1080 Weight 62.369 kg 63.049 kg Vitals Last Vital Signs Temp 97.7 F 03/19/25 12:24 Pulse 61 03/19/25 12:24 Resp 17 03/19/25 12:24 BP 138/65 03/19/25 12:24 Pulse Ox 94 03/19/25 12:24 O2 Del Method Nasal Cannula 03/19/25 12:24 O2 Flow Rate 2 03/19/25 12:24 TS Medications Medications Acetaminophen (Acetaminophen 325 Mg Tablet) 650 mg PO Q6H PRN PRN Reason: Mild/Mod Pain Or Temp >/= 101 Cefepime HCl (Cefepime 1,000 Mg Sdv) 1,000 mg IVP Q24H JOSE; Protocol Glucagon (Glucagon 1 Mg/Ml Kit 1 Ml) 1 mg IM ONCE PRN; Protocol PRN Reason: Adult Acute Hypoglycemia Nursing Prot. Heparin Sodium (Porcine) (Heparin 5,000 Unit/Ml Inj 1 Ml) 5,000 unit SUBCUT Q12H JOSE Last Admin: 03/19/25 00:53 Dose: 5,000 unit Dextrose (D5w) 500 mls @ 0 mls/hr IV ONCE PRN; Protocol PRN Reason: Adult Acute Hypoglycemia Prot Dextrose (D10w) 125 mls @ 750 mls/hr IV PRN PRN; Protocol PRN Reason: Adult Acute Hypoglycemia Nursing Protocol Dextrose (D10w) 250 mls @ 1,000 mls/hr IV PRN PRN; Protocol PRN Reason: Adult Acute Hypoglycemia Nursing Protocol Methylprednisolone Sodium Succinate 500 mg/ Sodium Chloride 258 mls @ 258 mls/hr IV DAILY [facility] Last Infusion: 03/19/25 10:01 Dose: Infused Insulin Human Lispro (Insulin Lispro 100 Unit/1 Ml) 0 unit SUBCUT WM&BEDTIME JOSE; Protocol Last Admin: 03/19/25 14:09 Dose: Not Given Morphine Sulfate (Morphine 4 Mg/Ml Sdv 1 Ml) 2 mg IVP Q4H PRN PRN Reason: SEVERE PAIN Sirolimus 1 each PO DAILY JOSE Last Admin: 03/19/25 08:51 Dose: 1 each Ondansetron HCl (Ondansetron 2 Mg/Ml Sdv 2 Ml) 4 mg IVP Q8H PRN PRN Reason: vomiting, or N/V if npo Last Admin: 03/19/25 08:30 Dose: 4 mg Oxycodone HCl (Oxycodone 5 Mg Ir Tab/Cap) 5 mg PO Q6H PRN PRN Reason: SEVERE PAIN Discontinued Medications Cefepime HCl (Cefepime 1,000 Mg Sdv) 1,000 mg IVP Q12H JOSE; Protocol Last Admin: 03/18/25 14:18 Dose: Not Given Furosemide (Furosemide 10 Mg/Ml Sdv 4ml) 40 mg IVP ONCE ONE Stop: 03/18/25 00:42 Last Admin: 03/18/25 01:38 Dose: 40 mg Heparin Sodium (Porcine) (Heparin, Porcine 1,000 Unit/Ml Inj 10 Ml) 10,000 unit HE ONCE ONE Stop: 03/18/25 19:32 Last Admin: 03/18/25 20:50 Dose: 10,000 unit Heparin Sodium (Porcine) (Heparin 5,000 Unit/Ml Inj 1 Ml) 2,000 unit IVP ONCE ONE Stop: 03/18/25 19:43 Last Admin: 03/18/25 19:20 Dose: 2,000 unit Sodium Chloride (Sodium Chloride 0.9%) 500 mls @ 500 mls/hr IV ONCE ONE Stop: 03/17/25 19:37 Last Infusion: 03/17/25 21:15 Dose: Infused Sodium Chloride (Sodium Chloride 0.9%) 1,000 mls @ 999 mls/hr IV .Q1H1M ONE Stop: 03/17/25 22:37 Last Infusion: 03/18/25 00:25 Dose: Infused Sodium Chloride (Sodium Chloride 0.9%) 1,000 mls @ 60 mls/hr IV .[id number] [facility] Last Infusion: 03/19/25 11:30 Dose: Infused Morphine Sulfate (Morphine 4 Mg/Ml Sdv 1 Ml) 4 mg IVP ONCE ONE Stop: 03/17/25 18:39 Last Admin: 03/17/25 19:18 Dose: 4 mg Non-Formulary Medication (Mycophenolate) 500 mg PO BID [facility] Last Admin: 03/18/25 13:24 Dose: Not Given Ondansetron HCl (Ondansetron 2 Mg/Ml Sdv 2 Ml) 4 mg IVP ONCE ONE Stop: 03/17/25 18:39 Last Admin: 03/17/25 19:18 Dose: 4 mg Pneumococcal Polyvalent Vaccine (Pneumococcal (23 Valent) Sdv 0.5 Ml) 0.5 ml IM .ONCE ONE Stop: 03/18/25 02:21 Last Admin: 03/18/25 05:35 Dose: Not Given Pneumococcal Polyvalent Vaccine (Pneumococcal (23 Valent) Sdv 0.5 Ml) 0.5 ml IM .ONCE ONE Stop: 03/18/25 06:46 Last Admin: 03/19/25 07:51 Dose: Not Given Prednisone (Prednisone 20 Mg Tablet) 20 mg PO DAILY JOSE Last Admin: 03/18/25 12:02 Dose: Not Given Prochlorperazine Edisylate (Prochlorperazine 10 Mg/2 Ml Inj) 10 mg IVP ONCE ONE Stop: 03/18/25 02:23 Last Admin: 03/18/25 05:34 Dose: Not Given Sodium Polystyrene Sulfonate (Sodium Polystyrene Sulfonate 15 Gm/60 Ml Btl) 30 gm PO ONCE ONE Stop: 03/18/25 10:24 Last Admin: 03/18/25 11:27 Dose: 30 gm Allergies No Known Allergies Allergy (Verified 03/18/25 02:42) Home Medications calcitriol 0.25 mcg capsule 0.25 mcg PO DAILY 03/18/25 [History Confirmed 03/18/25] enalapril maleate 5 mg tablet 5 mg PO DAILY 03/18/25 [History Confirmed 03/18/25] linagliptin 5 mg tablet 5 mg PO DAILY 03/18/25 [History Confirmed 03/18/25] mycophenolate mofetil 500 mg tablet 500 mg PO BID 03/18/25 [History Confirmed 03/18/25] prednisone 5 mg tablet 5 mg PO DAILY 03/18/25 [History Confirmed 03/18/25] sirolimus 1 mg tablet 1 mg PO DAILY 03/18/25 [History Confirmed 03/18/25] Discharge Plan Discharge Patient Disposition: Xfer Short-Term Hosp Condition: Fair Prescriptions: No Action enalapril maleate 5 mg Tablet 5 mg PO DAILY prednisone 5 mg Tablet 5 mg PO DAILY mycophenolate mofetil 500 mg Tablet 500 mg PO BID sirolimus 1 mg Tablet 1 mg PO DAILY calcitriol 0.25 mcg Capsule 0.25 mcg PO DAILY linagliptin 5 mg Tablet 5 mg PO DAILY Transfer Attestations Time Spent in Transfer Care: greater than 30 min Quality Metrics Clinical Quality Measures [ No reported AMI, CVA or VTE this stay] Coding Level of Care Code Acute Code for [facility] Fwd Diagnoses Acute kidney injury N17.9
[2025-03-19] MEDS: cefepime 1,000 mg SDV 1000 MG IVP (14:31)
[2025-03-19 15:56] VITALS: BP 145/62; PULSE 61; RESP 18; TEMP 36.6; O2SAT 93
[2025-03-19 21:17] VITALS: BP 153/71; BP 173/82; PULSE 60; PULSE 61; RESP 20; TEMP 36.5
[2025-03-20 12:49] LABS: COMPLEMENT, TOTAL (CH50) 59 U/mL (31-60)
[2025-03-20 13:34] LABS: COMPLEMENT COMPONENT C3C 143 mg/dL (83-193); COMPLEMENT COMPONENT C4C 26 mg/dL (15-57)
[2025-03-20 14:25] LABS: Tacrolimus, Highly Sensitive <1.0 mcg/L
[2025-03-21 00:55] LABS: Rapamycin / Sirolimus 4.6 ng/mL (3.0-18.0)
[2025-03-21 13:46] LABS: THYROID PEROXIDASE ANTIBODIES <1 IU/mL (<9)
[2025-03-21 15:09] LABS: Glomerular Bsmt Membrane IGG <1.0 AI
[2025-03-21 16:20] LABS: Rapamycin / Sirolimus 9.4 ng/mL (3.0-18.0)
[2025-03-22 08:38] LABS: ANCA Screen NEGATIVE (NEGATIVE)
[2025-03-23 21:55] LABS: DNA AB (DS) CRITHIDIA,IFA NEGATIVE (NEGATIVE)
== END 2025-03-19 16:15 | disposition short-term general hospital (02) | DRG 683 ==
LOC: ER 03-18 00:17 → MEDSURG 03-18 00:37
PROVIDERS: Internal Medicine; Internal Medicine Nephrology; Admitting Provider Internal Medicine; Emergency Provider Emergency Medicine; Visit Provider Internal Medicine
DX: N17.9 Acute kidney failure, unspecified (principal); E87.20 Acidosis, unspecified; Z94.0 Kidney transplant status; E87.5 Hyperkalemia; K81.9 Cholecystitis, unspecified; R00.1 Bradycardia, unspecified; R34 Anuria and oliguria; N26.1 Atrophy of kidney (terminal); D69.6 Thrombocytopenia, unspecified; Z95.0 Presence of cardiac pacemaker
CPT/HCPCS: 36415; 36416; 51702; 51798; 74176; 80048; 80053; 80195; 80197; 82306; 82310; 82550; 82962; 83520; 83605; 83735; 83970; 84100; 84550; 85025; 86036; 86038; 86060; 86140; 86160; 86162; 86225; 86235; 86255; 86376; 86706; 86803; 87040; 87340; 90935; 93005; 93308; 93926; 93975; 96361; 96372; 96374; 96375; 99285; J0692; J1644; J1815; J1938; J2270; J2405; J2919; J7030; J7040; J7050; J7512; J9999; Q3014